=== PATIENT | female | born 1930 | race Caucasian/White ===

== ENCOUNTER → 2017-01-24 | Outpatient (CLI) | payer MEDICARE ==
[~2017-01-24] MED LIST: AC500T PO; APIX2.5T PO; APIX5TAB2 PO; ASP81CT PO; ASPI-875 PO; ASPI-892 PO; AZTH250C PO; Acetaminophen PO; Apixaban PO; Atorvastatin Calcium PO; CLPD75T PO; DILT240C PO; DLT240CCR PO; Diltiazem Hcl PO; FRSM40T PO; FURO40TA4 PO; HYDR25TA4 PO; KCL10CCR PO; LISI20TA PO; LOSA25TA5 PO; Losartan Potassium PO; METO-272 PO; METO50TA7 PO; Metoprolol Succinate PO; NIFE30TA82 PO; OMEP-10 PO; POTA10TA36 PO; PRV20T PO; Pantoprazole Sodium PO; SPIR50TA6 PO; SPRN25T PO; Sodium Chloride IV
--- NOTE | 2017-01-25 19:33 | ECHOCARDIOGRAPHY REPORT ---
DATE OF SERVICE: 01/24/2017 ECHOCARDIOGRAM ORDERING PHYSICIAN: Dr. Aguillon. PRIMARY PHYSICIAN: Dr. Alvarez. CLINICAL DIAGNOSES: Coronary artery disease, ischemic cardiomyopathy. MEASUREMENTS: Left atrium 3.7. Aortic root 3.5. LV diameter diastolic 4.5. IVS thickness diastolic 1. LVPW thickness diastolic 0.9. DESCRIPTION: Two-dimensional echocardiography shows impairment of global left ventricular systolic function. There is distal septal and anteroapical hypokinesis. Aortic, mitral and tricuspid valve leaflets show good leaflet excursion. There is no significant pericardial effusion. Aortic valve appears to be trileaflet. Doppler imaging shows trivial mitral and tricuspid regurgitation. Pulmonary artery systolic pressure is estimated to be approximately 35 mmHg. There is no Doppler evidence of any significant valvular stenosis. The inferior vena cava is of normal size and does exhibit inspiratory collapse. There is no evidence of any significant intracardiac shunt on this transthoracic echocardiographic study. CONCLUSIONS: 1. Impairment of global left ventricular systolic function with distal septal and anteroapical hypokinesis and left ventricular ejection fraction of approximately 40%. 2. Trivial mitral and tricuspid regurgitation. 3. No evidence of significant valvular stenosis. 4. Pulmonary artery systolic pressure is estimated to be approximately 35 mmHg. Job ID: [id number] DocumentID: [id number] Dictated Date: 01/24/2017 15:24:58 Foxing Painter Date: 01/25/2017 10:38:10 Dictated By: RONNI AGUILLON MD, MA, FACP, FACC,
== END ==
LOC: CARD 11:24
PROVIDERS: ATTEND Internal Medicine Cardiovascular Disease
DX: I48.2 Chronic atrial fibrillation (principal); I25.10 Atherosclerotic heart disease of native coronary artery without angina pectoris; I65.23 Occlusion and stenosis of bilateral carotid arteries; E78.4 Other hyperlipidemia; I25.5 Ischemic cardiomyopathy; N18.3 Chronic kidney disease, stage 3 (moderate)
CPT/HCPCS: 93306

== ENCOUNTER → 2017-07-01 | Outpatient (CLI) | payer MEDICARE ==
[~2017-07-01] VITALS: Ht 160 cm; Wt 39.5 kg
[~2017-07-01] MED LIST changes: +CATHETER FLUSH 10 ML SYR IV PRN; +REGADENOSON 0.4 MG/5 ML SYR (LEXISCAN) IV ONE
[2017-07-01 09:46] VITALS: BP 131/57
--- NOTE | 2017-07-03 14:20 | STRESS TEST ---
DATE OF SERVICE: 07/01/2017 RESTING AND POST REGADENOSON TECHNETIUM-99M TETROFOSMIN SPECT CT IMAGING ORDERING PHYSICIAN: Dr. Aguillon. PRIMARY PHYSICIAN: Dr. Alvarez. CLINICAL DIAGNOSES: History of ischemic cardiomyopathy, atrial fibrillation, carotid arterial disease, hyperlipidemia. Baseline images were carried out after injection of 11 mCi technetium-99m of Tetrofosmin. This was followed by 0.4 mg regadenoson and 29 mCi of technetium-99m Tetrofosmin for stress imaging. The electrocardiogram showed atrial fibrillation throughout the study. Prior anteroseptal myocardial infarction cannot be excluded on the electrocardiogram. There is a diffuse nonspecific T-wave abnormality. The electrocardiogram did not change significantly with the regadenoson infusion. Review of images at rest and following stress does not indicate any significant perfusion defects consistent with significant myocardial ischemia or infarction. Gated images show normal global left ventricular systolic function with normal regional wall motion. Left ventricular ejection fraction is calculated to be 45%, but subjectively appears to be somewhat higher than that. CONCLUSIONS: 1. No evidence of significant myocardial ischemia or infarction on this study. 2. Left ventricular ejection fraction is calculated to be 45%, but subjectively appears to be somewhat higher than that. 3. No distinct regional wall motion abnormality is seen on this study. Job ID: [id number] DocumentID: [id number] Dictated Date: 07/03/2017 12:01:58 Chucking Machine Operator Date: 07/03/2017 13:01:11 Dictated By: RONNI AGUILLON MD, MA, FACP, FACC,
== END ==
LOC: CARD 07:29
PROVIDERS: ATTEND Internal Medicine Cardiovascular Disease
DX: I48.2 Chronic atrial fibrillation (principal); I65.23 Occlusion and stenosis of bilateral carotid arteries; N18.3 Chronic kidney disease, stage 3 (moderate); E78.4 Other hyperlipidemia; I25.5 Ischemic cardiomyopathy
CPT/HCPCS: 78452; 93017

== ENCOUNTER → 2017-08-06 | Outpatient (CLI) | payer MEDICARE ==
[~2017-08-06] MED LIST changes: -CATHETER FLUSH 10 ML SYR IV PRN; -REGADENOSON 0.4 MG/5 ML SYR (LEXISCAN) IV ONE
== END ==
LOC: CARD 08:29
PROVIDERS: ATTEND Nurse Practitioner Family
DX: I25.5 Ischemic cardiomyopathy (principal)
CPT/HCPCS: 93306

== ENCOUNTER 2018-02-18 15:00 | Outpatient (CLI) | payer MEDICARE ==
[~2018-02-18] VITALS: Ht 152.4 cm; Wt 40.8 kg
[2018-02-18] MEDS ORDERED: DILT240C53 PO (15:14)
[2018-02-18] MEDS ORDERED: ATOR10TA66 PO (15:14)
[2018-02-18] MEDS ORDERED: RIVA15TA PO (15:14)
[2018-02-18] MEDS ORDERED: PANT20TA3 PO (15:14)
[2018-02-18] MEDS ORDERED: CLOP75TA28 PO (15:14)
[2018-02-18] MEDS ORDERED: METO-370 PO (15:14)
== END 2018-02-18 15:18 ==
LOC: PREOP 15:00
PROVIDERS: ATTEND Specialist
DX: Z01.818 Encounter for other preprocedural examination (principal)

== ENCOUNTER 2018-02-19 19:36 | Inpatient (IN) | payer MEDICARE ==
[~2018-02-19] VITALS: Ht 157.5 cm; Wt 40.9 kg
[~2018-02-19 19:36] MED LIST changes: +ATOR10TA66 PO; +CLOP75TA28 PO; +DILT240C53 PO; +METO-370 PO; +PANT20TA3 PO; +RIVA15TA PO
--- NOTE | 2018-02-19 19:53 | ED General ---
General Chief Complaint: Neuro-Stroke Like Symptoms Stated Complaint: SOB/DIFFICULTY SPEAKING Nursing Triage Note: PATIENT WITH HX STROKE HERE FOR DIFFICULTIES WITH SPEECH Nursing Sepsis Screen: No Definite Risk Source of Information: Patient, Family Exam Limitations: No Limitations History of Present Illness Date Seen by Provider: Feb 19, 2018 Time Seen by Provider: 19:53 Initial Comments to ER per private vehicle with reports of difficulty speaking and shortness of breath.dino is accompanied by her daughter. This worsening of her baseline difficulty speaking began at 5 PM this evening. She denies any unilateral weakness or other neurologic deficits. She denies a headache. Her daughter states that she does seem short of breath. She does have a history of a stroke in 2014, history of atrial fibrillation and she is on Xarelto and Plavix.her deficits after the 2014 stroke work minor right-sided facial droop which persists and dysarthria. Tonight, the dysarthria seems worse. she is scheduled for cataract surgery to be done here tomorrow morning. Timing/Duration: 1-3 Hours Severity: Moderate Allergies and Home Medications Allergies Coded Allergies: No Known Drug Allergies (Unverified , 09/14/13) Home Medications Atorvastatin Calcium 10 Mg Tablet, 10 MG PO HS, (Reported) Clopidogrel Bisulfate 75 Mg Tablet, 75 MG PO DAILY, (Reported) Diltiazem HCl 240 Mg Cap.er.24h, 240 MG PO DAILY, (Reported) Metoprolol Succinate 50 Mg Tab.er.24h, 50 MG PO DAILY, (Reported) Pantoprazole Sodium 20 Mg Tablet.dr, 20 MG PO DAILY, (Reported) Rivaroxaban 15 Mg Tablet, 15 MG PO HS, (Reported) Patient Home Medication List Home Medication List Reviewed: Yes Review of Systems Constitutional: see HPI EENTM: see HPI Respiratory: no symptoms reported Cardiovascular: no symptoms reported Genitourinary: no symptoms reported Musculoskeletal: no symptoms reported Skin: no symptoms reported Psychiatric/Neurological: See HPI, Pre-Existing Deficit (pre-existing deficit is slight right-sided facial droop and dysarthria mild-moderate. ) Hematologic/Lymphatic: No Symptoms Reported Past Othzhgw-Cfvuvz-Luzycv Hx Patient Social History Recent Foreign Travel: No Contact w/Someone Who Travel: No Recent Infectious Disease Expo: No Immunizations Up To Date Tetanus Booster (TDap): Less than 5yrs Date of Pneumonia Vaccine: Aug 17, 2012 Seasonal Allergies Seasonal Allergies: No Past Medical History Coronary Stent Atrial Fibrillation, Coronary Artery Disease, Heart Attack, Hypertension Stroke Reproductive Disorders: No Fractures Loss of Vision: Denies Hearing Impairment: Hard of Hearing Family Medical History Family history: Cardiovascular disease 03 MOTHER Hypertension 03 MOTHER No Family History of: Alzheimer's disease Diabetes mellitus Myocardial infarction Heart Disease, Hypertension Physical Exam Vital Signs Vital Signs - First Documented 02/19/18 02/19/18 19:42 20:01 Temp 95.7 Pulse 90 Resp 18 B/P (MAP) 102/90 (94) Pulse Ox 95 O2 Delivery Nasal Cannula O2 Flow Rate 2.00 Capillary Refill : Less Than 3 Seconds General Appearance: No Apparent Distress, WD/WN, Chronically ill (frail), Thin (90 pounds), Other (she denies shortness of breath that she is tachypneic and does appear dyspneic) Eyes: Bilateral Eye Normal Inspection, Bilateral Eye PERRL, Bilateral Eye EOMI HEENT: PERRL/EOMI, TMs Normal Neck: Full Range of Motion, Normal Inspection Respiratory: Lungs Clear, Normal Breath Sounds, No Accessory Muscle Use, No Respiratory Distress Cardiovascular: Regular Rate, Rhythm, Normal Peripheral Pulses Gastrointestinal: Normal Bowel Sounds, Non Tender, Soft Extremity: Normal Capillary Refill, Normal Inspection Neurologic/Psychiatric: Alert, Oriented x3, No Motor/Sensory Deficits Skin: Normal Color, Warm/Dry Progress/Results/Core Measures Suspected Sepsis Recent Fever Within 48 Hours: No Infection Criteria Present: None New/Unexplained Altered Menta: No Sepsis Screen: No Definite Risk SIRS Temperature:95.7 Pulse: 90 Respiratory Rate: 18 Laboratory Tests 02/19/18 19:45: White Blood Count 8.2 Blood Pressure 102 /90 Mean: 94 Laboratory Tests 02/19/18 19:45: Creatinine 1.14, INR Comment 6.3*H, Platelet Count 116L, Total Bilirubin 1.2H Results/Orders Lab Results Laboratory Tests Test 02/19/18 19:45 02/19/18 19:59 02/19/18 20:50 Range/Units White Blood Count 8.2 4.3-11.0 10^3/uL Red Blood Count 4.00 L 4.35-5.85 10^6/uL Hemoglobin 10.6 L 11.5-16.0 G/DL Hematocrit 33 L 35-52 % Mean Corpuscular Volume 82 80-99 FL Mean Corpuscular Hemoglobin 27 25-34 PG Mean Corpuscular Hemoglobin Concent 32 32-36 G/DL Red Cell Distribution Width 18.5 H 10.0-14.5 % Platelet Count 116 L 130-400 10^3/uL Mean Platelet Volume 7.4-10.4 FL Neutrophils (%) (Auto) 60 42-75 % Lymphocytes (%) (Auto) 19 12-44 % Monocytes (%) (Auto) 21 H 0-12 % Eosinophils (%) (Auto) 0 0-10 % Basophils (%) (Auto) 0 0-10 % Neutrophils # (Auto) 4.9 1.8-7.8 X 10^3 Lymphocytes # (Auto) 1.6 1.0-4.0 X 10^3 Monocytes # (Auto) 1.8 H 0.0-1.0 X 10^3 Eosinophils # (Auto) 0.0 0.0-0.3 10^3/uL Basophils # (Auto) 0.0 0.0-0.1 10^3/uL Neutrophils % (Manual) 60 % Lymphocytes % (Manual) 25 % Monocytes % (Manual) 14 % Eosinophils % (Manual) 0 % Basophils % (Manual) 1 % Band Neutrophils 0 % Anisocytosis SLIGHT Spherocytes SLIGHT Elliptocytes MODERATE Prothrombin Time 56.5 *H 12.2-14.7 SEC INR Comment 6.3 *H 0.8-1.4 Activated Partial Thromboplast Time 45 H 24-35 SEC D-Dimer 0.84 H 0.00-0.49 UG/ML Sodium Level 134 L 135-145 MMOL/L Potassium Level 4.4 3.6-5.0 MMOL/L Chloride Level 106 98-107 MMOL/L Carbon Dioxide Level 11 L 21-32 MMOL/L Anion Gap 17 H 5-14 MMOL/L Blood Urea Nitrogen 22 H 7-18 MG/DL Creatinine 1.14 0.60-1.30 MG/DL Estimat Glomerular Filtration Rate 45 BUN/Creatinine Ratio 19 Glucose Level 143 H 70-105 MG/DL Calcium Level 8.7 8.5-10.1 MG/DL Total Bilirubin 1.2 H 0.1-1.0 MG/DL Aspartate Amino Transf (AST/SGOT) 21 5-34 U/L Alanine Aminotransferase (ALT/SGPT) 16 0-55 U/L Alkaline Phosphatase 66 40-136 U/L Troponin I < 0.30 <0.30 NG/ML B-Type Natriuretic Peptide 2960.1 H <100.0 PG/ML Total Protein 6.5 6.4-8.2 GM/DL Albumin 3.5 3.2-4.5 GM/DL Glucometer 142 H 70-110 MG/DL Urine Color YELLOW Urine Clarity CLEAR Urine pH 5 5-9 Urine Specific [place] 1.030 H 1.016-1.022 Urine Protein 3+ H NEGATIVE Urine Glucose (UA) NEGATIVE NEGATIVE Urine Ketones 1+ H NEGATIVE Urine Nitrite NEGATIVE NEGATIVE Urine Bilirubin 1+ H NEGATIVE Urine Urobilinogen 4 H NORMAL MG/DL Urine Leukocyte Esterase 1+ H NEGATIVE Urine RBC (Auto) 1+ H NEGATIVE Urine RBC 2-5 H /HPF Urine WBC 2-5 /HPF Urine Squamous Epithelial Cells 0-2 /HPF Urine Crystals NONE /LPF Urine Bacteria TRACE /HPF Urine Casts PRESENT /LPF Urine Hyaline Casts 5-10 H /LPF Urine Mucus LARGE H /LPF Urine Culture Indicated NO My Orders Orders - CATARINO OKEEFE APRN Cbc With Automated Diff (02/19/18 19:51) Protime With Inr (02/19/18 19:51) Partial Thromboplastin Time (02/19/18 19:51) Comprehensive Metabolic Panel (02/19/18 19:51) Fibrin Degradation Products (02/19/18 19:51) Troponin I (02/19/18 19:51) Ua Culture If Indicated (02/19/18 19:51) Chest 1 View, Ap/Pa Only (02/19/18 19:51) Ekg Tracing (02/19/18 19:51) Nothing By Mouth (02/20/18 Breakfast) Accucheck Stat ONCE (02/19/18 19:51) Saline Lock/Iv-Start (02/19/18 19:51) Saline Lock/Iv-Start (02/19/18 19:51) Vital Signs Stroke Patient Q15M (02/19/18 19:51) Ct Head Wo-R/O Stroke (02/19/18 19:51) O2 (02/19/18 19:51) Intake & Output 06,14,22 (02/19/18 19:51) Monitor-Rhythm Ecg Trace Only (02/19/18 19:51) Dysphagia Screening Tool (02/19/18 19:51) Post Thrombolytic Adminstratio (02/19/18 19:51) Manual Differential (02/19/18 19:45) Ct Angio Head W (02/19/18 19:51) BNP (02/19/18 20:55) Furosemide Injection (Lasix Injection) (02/19/18 21:00) Blood Culture (02/19/18 20:55) Piperacillin/Tazobactam (Zosyn Vial) (02/19/18 21:00) Medications Given in ED Current Medications Medications Dose Ordered Sig/Gerard Route Start Time Stop Time Status Last Admin Dose Admin Furosemide 40 mg ONCE ONCE IVP 02/19/18 21:00 02/19/18 21:01 DC 02/19/18 21:14 40 MG Piperacillin Sod/ Tazobactam Sod 3.375 gm/Dextrose 100 ml @ 200 mls/hr ONCE ONCE IV 02/19/18 21:00 02/19/18 21:29 DC 02/19/18 21:47 200 MLS/HR Vital Signs/I&O 02/19/18 02/19/18 19:42 20:01 Temp 95.7 Pulse 90 Resp 18 B/P (MAP) 102/90 (94) Pulse Ox 95 90 O2 Delivery Nasal Cannula O2 Flow Rate 2.00 Capillary Refill : Less Than 3 Seconds Blood Pressure Mean: 94 Diagnostic Imaging Diagonstic Imaging: Xray Comments NAME: DARWIN NEWSOME [facility] REC#: [id number] PT STATUS: REG ER : 1930 PHYSICIAN: CATARINO OKEEFE APRN ADMIT DATE: 02/19/18/ER Draft Date of Exam:02/19/18 CT HEAD WO-R/O STROKE INDICATION: Difficulty speaking. History of previous stroke. FINDINGS: There is diffuse cortical atrophy again noted. Periventricular white matter changes are again noted. Ventricles are prominent, consistent with atrophic state. There is no evidence of intracranial hemorrhage. No extra-axial fluid collections. Basal cisterns are clear. Pituitary is not enlarged. CP angles appear normal. Bone windows show the mastoid air cells to be clear. No calvarial fractures. IMPRESSION: Rather advanced cortical atrophy and periventricular white matter changes consistent with chronic small vessel disease. No acute changes have developed. Dictated on workstation # [id number] Dict: 02/19/182013 Trans: 02/19/182017 [id number] Interpreted by: EDY CASTLE MD Electronically signed by: Departure Communication (Admissions) Time/Spoke to Admitting Phy: 21:[address] Jerry. He agrees to admit, recommends MRI in the morning, 2 view chest x-ray in the morning, Lasix, Zosyn, continues Xarelto, Cardiology a consult, weight now and daily, basic metabolic panel in the morning, BNP in the morning, elevate head of bed and IV fluids being D5W. Time/Spoke to Consulting Phy: 21:[address] Aguillon of the consult. Patient states that she actually sees Dr. Aguillon in the outpatient setting. He agrees to consult in the morning. I'll daily Lasix 40 mg now and again in the morning with repeat chest x-ray. 2100-patient's CT of the head is unremarkable. Chest x-ray shows cardiac enlargement since prior exam with pulmonary edema and infiltrate. I suspect this is caused a recrudescence of her old stroke symptoms including dysarthria. she would not be a TPA candidate given her Xarelto use. Her kidney dysfunction precludes her from Ct angiogram. patient reports to RN that if her heart should suddenly stop she does not want to be resuscitated she will be a DO NOT RESUSCITATE status Impression Primary Impression: Congestive heart failure Additional Impression: Pneumonia Disposition: ADMITTED INPATIENT Condition: Stable Admissions Decision to Admit Reason: Admit from ER (General) Decision to Admit/Date: Feb 19, 2018 Time/Decision to Admit Time: 22:13 Departure-Patient Inst. Referrals: ARGENIS JERRY DO (PCP/Family) Primary Care Physician NIH Stroke Scale NIH Stroke Scale NIH : Select: Initial Level of Consciousness: 0=Alert Level of Consciousness-Questio: 0=Answers both month/age LOC Commands: 0=Performs both tasks Gaze: 0=Normal Visual Ventura: 0=No visual loss Facial Movement (Facial Paresi: 1=Minor paralysis Motor Function-Arms Right: 0=No drift Motor Function-Arms Left: 0=No drift Motor Function-Legs Right: 0=No drift Motor Function-Legs Left: 0=No drift Limb Ataxia: 0=Absent Sensory: 0=Normal:no loss Best Language: 0=No aphasia Dysarthria: 2=Severe dysarthria Extinction & Inattention: 0=No abnormality NIH Stroke Scale Score: 3 (NIH score of 3.. However the 1point for facial droop is baseline, and she also gets 1 for mild to moderate dysarthria per baseline. so her new NIH deficit is one additional point for worsening dysarthria) CATARINO OKEEFE [employer] Feb 19, 2018 19:53
[2018-02-19 19:58] LABS: BASOPHILS % (AUTO) 0 % (0-10); EOSINOPHILS % (AUTO) 0 % (0-10); HEMATOCRIT 33 % (35-52); HEMOGLOBIN 10.6 G/DL (11.5-16.0); LYMPHOCYTES # (AUTO) 1.6 X 10^3 (1.0-4.0); LYMPHOCYTES % (AUTO) 19 % (12-44); MEAN CORPUSCULAR HEMOGLOBIN 27 PG (25-34); MEAN CORPUSCULAR HGB CONC 32 G/DL (32-36); MEAN CORPUSCULAR VOLUME 82 FL (80-99); MONOCYTES # (AUTO) 1.8 X 10^3 (0.0-1.0); MONOCYTES % (AUTO) 21 % (0-12); NEUTROPHILS # (AUTO) 4.9 X 10^3 (1.8-7.8); NEUTROPHILS % (AUTO) 60 % (42-75); PLATELET COUNT 116 10^3/uL (130-400); RED CELL DISTRIBUTION WIDTH 18.5 % (10.0-14.5); WHITE BLOOD COUNT 8.2 10^3/uL (4.3-11.0)
[2018-02-19 20:10] LABS: NEUTROPHILS % (MANUAL) 60 %
[2018-02-19 20:11] LABS: ANISOCYTOSIS SLIGHT; BAND NEUTROPHILS 0 %; BASOPHILS % (MANUAL) 1 %; ELLIPT/OVALOCYTES MODERATE; EOSINOPHILS % (MANUAL) 0 %; LYMPHOCYTES % (MANUAL) 25 %; MONOCYTES % (MANUAL) 14 %; SPHEROCYTES SLIGHT
--- NOTE | 2018-02-19 20:18 | Diagnostic Imaging Report ---
INDICATION: Difficulty speaking. History of previous stroke. FINDINGS: There is diffuse cortical atrophy again noted. Periventricular white matter changes are again noted. Ventricles are prominent, consistent with atrophic state. There is no evidence of intracranial hemorrhage. No extra-axial fluid collections. Basal cisterns are clear. Pituitary is not enlarged. CP angles appear normal. Bone windows show the mastoid air cells to be clear. No calvarial fractures. IMPRESSION: Rather advanced cortical atrophy and periventricular white matter changes consistent with chronic small vessel disease. No acute changes have developed. Dictated by: Dictated on workstation # [id number]
--- NOTE | 2018-02-19 20:22 | Diagnostic Imaging Report ---
INDICATION: Difficulty speaking. Shortness of breath. History of stroke. COMPARISON: 01/08/2015. FINDINGS: There is significant increase in cardiac size since previous exam. There is some pulmonary venous congestion. There are dense consolidated infiltrates in the lower lobes, bilaterally, with small bilateral pleural effusions. IMPRESSION: 1. Cardiomegaly with some changes of pulmonary edema. 2. Dense alveolar infiltrates in the lung bases which does suggest superimposed pneumonia on findings of congestive failure. Dictated by: Dictated on workstation # [id number]
[2018-02-19 20:23] LABS: ALANINE AMINOTRANSFERASE 16 U/L (0-55); ALBUMIN 3.5 GM/DL (3.2-4.5); ALKALINE PHOSPHATASE 66 U/L (40-136); BILIRUBIN,TOTAL 1.2 MG/DL (0.1-1.0); BUN/CREATININE RATIO 19; CALCIUM 8.7 MG/DL (8.5-10.1); CARBON DIOXIDE 11 MMOL/L (21-32); CHLORIDE 106 MMOL/L (98-107); CREATININE SERUM 1.14 MG/DL (0.60-1.30); GFR ESTIMATED 45; GLUCOSE 143 MG/DL (70-105); POTASSIUM 4.4 MMOL/L (3.6-5.0); SODIUM 134 MMOL/L (135-145); TOTAL PROTEIN 6.5 GM/DL (6.4-8.2)
[2018-02-19 20:28] LABS: PROTHROMBIN TIME PATIENT 56.5 SEC (12.2-14.7)
[2018-02-19 20:29] LABS: FIBRIN DEGRADATION PRODUCTS 0.84 UG/ML (0.00-0.49); INR 6.3 (0.8-1.4)
[2018-02-19] MEDS ORDERED: FUROSEMIDE 40 MG/4 ML INJ (LASIX) IVP ONE (21:00)
[2018-02-19] MEDS ORDERED: PIPERACILLIN/TAZOBACTAM 3.375 GM in D5W 100 ML IVPB 100 ML IV ONE (21:00)
[2018-02-19 21:04] LABS: CLARITY,URINE CLEAR; COLOR,URINE YELLOW; GLUCOSE, URINE (UA) NEGATIVE (NEGATIVE); KETONES,URINE 1+ (NEGATIVE); LEUKOCYTE ESTERASE ,URINE 1+ (NEGATIVE); NITRITE,URINE NEGATIVE (NEGATIVE); PH,URINE 5 (5-9); PROTEIN,URINE 3+ (NEGATIVE); UROBILINOGEN,URINE 4 MG/DL (NORMAL)
[2018-02-19 21:12] LABS: BILIRUBIN,URINE 1+ (NEGATIVE)
[2018-02-19 21:15] LABS: BACTERIA,URINE TRACE /HPF; SQUAMOUS EPITHELIAL CELL,UR 0-2 /HPF
[2018-02-19] MEDS ORDERED: LIDOCAINE 1% INJ 20 ML 20 ML VIAL INJ ONE (22:15)
[2018-02-19 23:00] VITALS: BP 130/85
[2018-02-19] MEDS ORDERED: D5W 1000 ML IV SOLUTION 1,000 ML IV SCH (23:15)
[2018-02-19 23:30] VITALS: BP 129/81
[2018-02-19 23:39] VITALS: BP 130/85
[2018-02-20] VITALS: BP 117/75
[2018-02-20] MEDS: PIPERACILLIN/TAZOBACTAM 3.375 GM in D5W 100 ML IVPB 100 ML IV SCH ×3 (03:56→20:20)
[2018-02-20 04:00] VITALS: BP 116/73
[2018-02-20 04:14] LABS: CALCIUM 8.4 MG/DL (8.5-10.1); CREATININE SERUM 1.03 MG/DL (0.60-1.30); POTASSIUM 3.2 MMOL/L (3.6-5.0)
[2018-02-20] MEDS ORDERED: FUROSEMIDE 40 MG/4 ML INJ (LASIX) IV SCH (07:00)
[2018-02-20] MEDS: RT-ALBUTEROL SULF 2.5 MG/3 ML PRE-MIX VIAL INH SCH ×2 (07:14→22:24)
[2018-02-20] MEDS ORDERED: KCL 10 MEQ TAB (MICRO K) PO NR (07:46)
--- NOTE | 2018-02-20 07:47 | History & Physicial ---
History of Present Illness History of Present Illness Reason for visit/HPI Patient to have eye surgery today. Daughter saw patient at 3 a.m. doing good. Daughter came back at 7 a.m. and mother could not talk and short of breath. Patient brought out to the emergency room. Patient in atrial fibrillation, CHF, pneumonia, and appears to have had a stroke. Patient is not able to speak well and has mumbled speech. Patient in 2014 had a stroke Date of Admission Feb 19, 2018 at 22:37 Time Seen by Provider: 07:20 I consulted on this patient on 02/20/18 07:42 Attending Physician Jeremiah Jerry DO Admitting Physician Jeremiah Jerry DO Consult Allergies and Home Medications Allergies Coded Allergies: No Known Drug Allergies (Unverified , 09/14/13) Home Medications Atorvastatin Calcium 10 Mg Tablet, 10 MG PO HS, (Reported) Clopidogrel Bisulfate 75 Mg Tablet, 75 MG PO DAILY, (Reported) Diltiazem HCl 240 Mg Cap.er.24h, 240 MG PO DAILY, (Reported) Metoprolol Succinate 50 Mg Tab.er.24h, 50 MG PO DAILY, (Reported) Pantoprazole Sodium 20 Mg Tablet.dr, 20 MG PO DAILY, (Reported) Rivaroxaban 15 Mg Tablet, 15 MG PO HS, (Reported) Patient Home Medication List Home Medication List Reviewed: No Past Ragmrhf-Kslxiy-Hwhzda Hx Patient Social History Employed/Student: retired Alcohol Use: Denies Use Recreational Drug Use: No Smoking Status: Never a Smoker 2nd Hand Smoke Exposure: No Physical Abuse Screen: No Sexual Abuse: No Recent Foreign Travel: No Contact w/other who traveled: No Recent Hopitalizations: No Recent Infectious Disease Expo: No Immunizations Up To Date Tetanus Booster (TDap): Less than 5yrs Date of Pneumonia Vaccine: Aug 17, 2012 Seasonal Allergies Seasonal Allergies: No Surgeries Yes Coronary Stent Respiratory No Cardiovascular Yes Atrial Fibrillation, Coronary Artery Disease, Heart Attack, Hypertension Neurological Yes Stroke Reproductive System Hx Reproductive Disorders: No Genitourinary No Gastrointestinal No Musculoskeletal Yes Osteoporosis, Arthritis, Fractures Endocrine History of Endocrine Disorders: No HEENT History of HEENT Disorders: Yes HEENT Disorders: Cataract Loss of Vision: Denies Hearing Impairment: Hard of Hearing Cancer No Psychosocial History of Psychiatric Problem: No Integumentary History of Skin or Integumenta: No Blood Transfusions History of Blood Disorders: No Family Medical History Significant Family History: Heart Disease, Hypertension Family Hx: Family history: Cardiovascular disease 03 MOTHER Hypertension 03 MOTHER No Family History of: Alzheimer's disease Diabetes mellitus Myocardial infarction Constitutional: weakness EENTM: other (Mumbled speech) Respiratory: short of breath Cardiovascular: no symptoms reported Gastrointestinal: no symptoms reported Genitourinary: no symptoms reported Physical Exam Vital Signs Vital Signs - First Documented 02/19/18 02/19/18 02/19/18 19:42 20:01 23:39 Temp 95.7 Pulse 90 Resp 18 B/P (MAP) 102/90 (94) Pulse Ox 95 O2 Delivery Nasal Cannula O2 Flow Rate 2.00 FiO2 28 Capillary Refill : Less Than 3 Seconds General Appearance: No Apparent Distress, Thin Eyes: Bilateral Eye Normal Inspection HEENT: Normal ENT Inspection, Other (Speech is not intelligible) Neck: Full Range of Motion, Normal Inspection Respiratory: No Accessory Muscle Use, No Respiratory Distress, Decreased Breath Sounds Cardiovascular: Irregularly Irregular Gastrointestinal: Non Tender, Soft Assessment/Plan Assessment and Plan CVA. Pulmonary edema. Pneumonia. Short of breath. Mumbled speech. Atrial fibrillation. Cataracts Admission Diagnosis Admission Status: Inpatient Order (span 2 midnights) Reason for Inpatient Admission: CHF. CVA. Atrial fibrillation. Short of breath. Mumbled speech. Renal insufficiency Clinical Quality Measures DVT/VTE Risk/Contraindication: Risk Factor Score Per Nursin RFS Level Per Nursing on Admit: 4+=Very High Stroke: Date of last known well: Feb 19, 2018 JEREMIAH JERRY DO Feb 20, 2018 07:47
[2018-02-20 07:54] LABS: INR 4.1 (0.8-1.4); PROTHROMBIN TIME PATIENT 39.9 SEC (12.2-14.7)
[2018-02-20 08:00] VITALS: BP 111/67
--- NOTE | 2018-02-20 09:03 | Consultation-Cardiology ---
HPI-Cardiology Cardiology Consultation: Date of Consultation 02/20/18 Date of Admission Attending Physician Jeremiah Alvarez DO Admitting Physician Jeremiah Alvarez DO Consulting Physician RYLAN SPRINGER HOU-Rgnbnf-Mosdiw Hx Patient Social History Employed/Student: retired Alcohol Use: Denies Use Recreational Drug Use: No Smoking Status: Never a Smoker 2nd Hand Smoke Exposure: No Recent Foreign Travel: No Recent Infectious Disease Expo: No Hospitalization with Isolation: Denies Physical Abuse Screen: No Sexual Abuse: No Immunizations Up To Date Tetanus Booster (TDap): Less than 5yrs Date of Pneumonia Vaccine: Aug 17, 2012 Past Medical History PMH As described under Assessment. Family Medical History Family History: Family history: Cardiovascular disease 03 MOTHER Hypertension 03 MOTHER No Family History of: Alzheimer's disease Diabetes mellitus Myocardial infarction Allergies and Home Medications Allergies Coded Allergies: No Known Drug Allergies (Unverified , 09/14/13) Home Medications Atorvastatin Calcium 10 Mg Tablet, 10 MG PO DAILY, (Reported) Clopidogrel Bisulfate 75 Mg Tablet, 75 MG PO DAILY, (Reported) Diltiazem HCl 240 Mg Cap.er.24h, 240 MG PO DAILY, (Reported) Metoprolol Succinate 50 Mg Tab.er.24h, 25 MG PO DAILY, (Reported) TAKES 1/2 (50MG) TABLET Pantoprazole Sodium 20 Mg Tablet.dr, 20 MG PO DAILY, (Reported) Rivaroxaban 15 Mg Tablet, 15 MG PO DAILY, (Reported) Physical Exam-Cardiology Physical Exam Vital Signs/I&O 02/23/18 02/23/18 02/23/18 02/23/18 00:00 01:00 04:00 07:29 Temp 98.9 96.6 Pulse 106 98 106 Resp 16 16 B/P (MAP) 120/71 (87) 128/80 (96) Pulse Ox 91 94 88 O2 Delivery Nasal Cannula Nasal Cannula Nasal Cannula O2 Flow Rate 3.00 3.00 02/23/18 00:00 Intake Total 1550 ml Balance 1550 ml Capillary Refill : Less Than 3 Seconds Data Review Labs Microbiology 02/19/18 Blood Culture - Preliminary, Resulted No growth Radiology NAME: DARWIN NEWSOME MED REC#: [id number] PT STATUS: REG ER : 1930 PHYSICIAN: CATARINO OKEEFE APRN ADMIT DATE: 02/19/18/ER Signed Date of Exam: 02/19/18 CHEST 1 VIEW, AP/PA ONLY INDICATION: Difficulty speaking. Shortness of breath. History of stroke. COMPARISON: 01/08/2015. FINDINGS: There is significant increase in cardiac size since previous exam. There is some pulmonary venous congestion. There are dense consolidated infiltrates in the lower lobes, bilaterally, with small bilateral pleural effusions. IMPRESSION: 1. Cardiomegaly with some changes of pulmonary edema. 2. Dense alveolar infiltrates in the lung bases which does suggest superimposed pneumonia on findings of congestive failure. Dictated by: Dictated on workstation # [id number] Dict: 02/19/182018 Trans: 02/19/182126 Interpreted by: EDY CASTLE MD Electronically signed by: EDY CASTLE MD 02/19/182126 NAME: DARWIN NEWSOME [facility] REC#: [id number] PT STATUS: REG ER : 1930 PHYSICIAN: CATARINO OKEEFE APRN ADMIT DATE: 02/19/18/ER Signed Date of Exam: 02/19/18 CT HEAD WO-R/O STROKE INDICATION: Difficulty speaking. History of previous stroke. FINDINGS: There is diffuse cortical atrophy again noted. Periventricular white matter changes are again noted. Ventricles are prominent, consistent with atrophic state. There is no evidence of intracranial hemorrhage. No extra-axial fluid collections. Basal cisterns are clear. Pituitary is not enlarged. CP angles appear normal. Bone windows show the mastoid air cells to be clear. No calvarial fractures. IMPRESSION: Rather advanced cortical atrophy and periventricular white matter changes consistent with chronic small vessel disease. No acute changes have developed. Dictated by: Dictated on workstation # [id number] Dict: 02/19/182013 Trans: 02/19/182126 Interpreted by: EDY CASTLE MD Electronically signed by: EDY CASTLE MD 02/19/182126 A/P-Cardiology Assessment/Admission Diagnosis Suspected CVA - medical services managing Supra-therapeutic INR of undetermined etiology (Xarelto for stroke prophylaxis) Acute on chronic systolic CHF Electrolyte abnormalities likely d/t chronic diuretic tx CAD. S/p mid RCA stent (Integrity 2.75x12) in early Oct 2013 following presentation with ac NSTEMI. The rest of the cors had diffuse mod disease with stenoses of upto 50-60%. MPI of 07/11/17 showed no ischemia of infarction and LVEF of 45% (subjectively felt to be higher) Ischemic cm. Cath of 11/08/13, prior to PCI, showed LVEF 35-40% and elev LVEDP Apparently intolerant to ANTOINE-inhibitor and ARB due to worsening of renal function. This is being managed by Dr Alvarez Echocardiogram of 01/24/17: LVEF 40%, triv MR and TR, PASP 35 mm Hg. ( essentially unchanged compaed to echo of December 2014) Carotid u/s from January 09, 2015 showed bilat plaque at the carotid bifurcation with velocities suggestive of underlying stenosis in the range of 60-79% in the right ICA, and in the left ICA 0-40%, unchanged on subsequent carotid u/s of . Carotid u/s of January 2017 showed mod bilat carotid plaque Chronic A fib, diagnosed in Oct 2013, rate controlled Anemia diagnosed at time of hospitalization of Oct 2013. Etiology unclear. Stable post blood transfusions during hosp of Oct 2013. F/u advised with her primary, Dr Alvarez Hyperlipidemia, treated with atorvastatin and followed by Dr Alvarez CKD stage 2-3 H/O CVA in December 2014 OAC with Xarelto CKD stage 2-3. Cr 1.16 and eGFR 43 on 12/30/16 Clinical Quality Measures DVT/VTE Risk/Contraindication: Risk Factor Score Per Nursin RFS Level Per Nursing on Admit: 4+=Very High Contraindications-Pharm: Other *list below* Stroke: Date of last known well: Feb 19, 2018 RYLAN CHO Feb 20, 2018 09:03
[2018-02-20] MEDS ORDERED: MAGNESIUM 1 GM/100 ML IVPB 100 ML IV NR (09:45)
--- NOTE | 2018-02-20 09:53 | Consultation-Cardiology ---
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 She was also more short of breath yesterday. No cp or syncope or leg swelling. No focal weakness. No recent fever or chills Review of Systems-Cardiology Review of Systems Constitutional: malaise, tiredness; No weight loss, No weight gain Eyes: blurred vision; No vision change Ears/Nose/Throat: No ear discharge, No nasal drainage, No recent hearing loss Respiratory: As described under HPI Cardiovascular: As described under HPI Gastrointestinal: No diarrhea, No vomiting Genitourinary: No dysuria Musculoskeletal: back pain (chronic) Skin: No rash, No ulcerations Psychiatric/Neurological: As described under HPI Hematologic: No bleeding abnormalities TNB-Hopuxp-Xbpkuf Hx Patient Social History Employed/Student: retired Alcohol Use: Denies Use Recreational Drug Use: No Smoking Status: Never a Smoker 2nd Hand Smoke Exposure: No Recent Foreign Travel: No Recent Infectious Disease Expo: No Hospitalization with Isolation: Denies Physical Abuse Screen: No Sexual Abuse: No Immunizations Up To Date Tetanus Booster (TDap): Less than 5yrs Date of Pneumonia Vaccine: Aug 17, 2012 Past Medical History PMH As described under Assessment. Family Medical History Family History: Family history: Cardiovascular disease 03 MOTHER Hypertension 03 MOTHER No Family History of: Alzheimer's disease Diabetes mellitus Myocardial infarction Allergies and Home Medications Allergies Coded Allergies: No Known Drug Allergies (Unverified , 09/14/13) Home Medications Atorvastatin Calcium 10 Mg Tablet, 10 MG PO HS, (Reported) Clopidogrel Bisulfate 75 Mg Tablet, 75 MG PO DAILY, (Reported) Diltiazem HCl 240 Mg Cap.er.24h, 240 MG PO DAILY, (Reported) Metoprolol Succinate 50 Mg Tab.er.24h, 50 MG PO DAILY, (Reported) Pantoprazole Sodium 20 Mg Tablet.dr, 20 MG PO DAILY, (Reported) Rivaroxaban 15 Mg Tablet, 15 MG PO HS, (Reported) Patient Home Medication List Home Medication List Reviewed: Yes Physical Exam-Cardiology Physical Exam Vital Signs/I&O 02/19/18 02/19/18 02/19/18 02/19/18 22:51 23:00 23:00 23:06 Temp 95.7 96.1 Pulse 90 86 76 Resp 18 13 B/P (MAP) 102/90 (94) 130/85 (100) Pulse Ox 90 98 98 O2 Delivery Nasal Cannula Nasal Cannula Nasal Cannula O2 Flow Rate 2.00 3.00 2.00 02/19/18 02/19/18 02/19/18 02/20/18 23:30 23:39 23:56 00:00 Pulse 80 83 77 Resp 18 21 B/P (MAP) 129/81 (97) 117/75 (89) Pulse Ox 98 99 99 O2 Delivery Nasal Cannula Nasal Cannula Nasal Cannula O2 Flow Rate 3.00 2.00 3.00 FiO2 28 02/20/18 02/20/18 02/20/18 02/20/18 01:00 04:00 07:00 07:15 Temp 97.8 Pulse 78 71 73 Resp 20 B/P (MAP) 116/73 (87) Pulse Ox 97 99 O2 Delivery Nasal Cannula Nasal Cannula O2 Flow Rate 3.00 3.00 02/20/18 08:00 Pulse 70 Resp 17 B/P (MAP) 111/67 (82) Pulse Ox 99 O2 Delivery Nasal Cannula O2 Flow Rate 3.00 02/20/18 00:00 Intake Total 100 ml Balance 100 ml Capillary Refill : Less Than 3 Seconds Constitutional: AAO x 3, well-developed, other (thin appearing) HEENT: EOMI, hearing is well preserved, oral hygience is good; No xanthelasmas are seen Neck: carotid pulses are 2 + bilaterally, with good upstrokes Respiratory: No accessory muscle use; lungs clear to percussion, lungs clear to auscultation Cardiovascular: irregularly irregular, S1 and S2, systolic murmur (soft BRIGID at card base) Gastrointestinal: No tender; soft; No guarding, No rebound; audible bowel sounds Extremities: No clubbing, No cyanosis, No significant edema Neurologic/Psychiatric: other (dysrthria; move all limbs equally; alert and oriented) Skin: No rash on exposed areas, No ulcerations on exposed areas Data Review Labs Laboratory Tests 02/19/18 19:45: White Blood Count 8.2, Red Blood Count 4.00L, Hemoglobin 10.6L, Hematocrit 33L, Mean Corpuscular Volume 82, Mean Corpuscular Hemoglobin 27, Mean Corpuscular Hemoglobin Concent 32, Red Cell Distribution Width 18.5H, Platelet Count 116L, Mean Platelet Volume , Neutrophils (%) (Auto) 60, Lymphocytes (%) (Auto) 19, Monocytes (%) (Auto) 21H, Eosinophils (%) (Auto) 0, Basophils (%) (Auto) 0, Neutrophils # (Auto) 4.9, Lymphocytes # (Auto) 1.6, Monocytes # (Auto) 1.8H, Eosinophils # (Auto) 0.0, Basophils # (Auto) 0.0, Neutrophils % (Manual) 60, Lymphocytes % (Manual) 25, Monocytes % (Manual) 14, Eosinophils % (Manual) 0, Basophils % (Manual) 1, Band Neutrophils 0, Anisocytosis SLIGHT, Spherocytes SLIGHT, Elliptocytes MODERATE, Prothrombin Time 56.5*H, INR Comment 6.3*H, Activated Partial Thromboplast Time 45H, D-Dimer 0.84H, Sodium Level 134L, Potassium Level 4.4, Chloride Level 106, Carbon Dioxide Level 11L, Anion Gap 17H , Blood Urea Nitrogen 22H, Creatinine 1.14, Estimat Glomerular Filtration Rate 45, BUN/Creatinine Ratio 19, Glucose Level 143H, Calcium Level 8.7, Total Bilirubin 1.2H, Aspartate Amino Transf (AST/SGOT) 21, Alanine Aminotransferase ( ALT/SGPT) 16, Alkaline Phosphatase 66, Troponin I < 0.30, B-Type Natriuretic Peptide 2960.1H, Total Protein 6.5, Albumin 3.5 02/19/18 19:59: Glucometer 142H 02/19/18 20:50: Urine Color YELLOW, Urine Clarity CLEAR, Urine pH 5, Urine Specific [place] 1.030H, Urine Protein 3+H, Urine Glucose (UA) NEGATIVE, Urine Ketones 1+H, Urine Nitrite NEGATIVE, Urine Bilirubin 1+H, Urine Urobilinogen 4H, Urine Leukocyte Esterase 1+H, Urine RBC (Auto) 1+H, Urine RBC 2-5H, Urine WBC 2-5, Urine Squamous Epithelial Cells 0-2, Urine Crystals NONE, Urine Bacteria TRACE, Urine Casts PRESENT, Urine Hyaline Casts 5-10H, Urine Mucus LARGEH, Urine Culture Indicated NO 02/20/18 03:10: Sodium Level 134L, Potassium Level 3.2L, Chloride Level 102, Carbon Dioxide Level 17L, Anion Gap 15H, Blood Urea Nitrogen 20H, Creatinine 1.03, Estimat Glomerular Filtration Rate 51, BUN/Creatinine Ratio 19, Glucose Level 142H, Calcium Level 8.4L, B-Type Natriuretic Peptide 3029.9H 02/20/18 03:16: Prothrombin Time 39.9H, INR Comment 4.1H, Magnesium Level 1.7L Laboratory Tests 02/19/18 19:45 02/20/18 03:10 A/P-Cardiology Assessment/Admission Diagnosis Suspected CVA, consisting of worsening of dysarthria - Medical Service managing Chronic persistent A fib, first diagnosed in Oct 2013, rate controlled Chronic rivaroxaban therapy for stroke prophylaxis Acute on chronic systolic CHF, clinically improved Electrolyte abnormalities likely d/t chronic diuretic tx CAD. S/p mid RCA stent (Integrity 2.75x12) in early Oct 2013 following presentation with ac NSTEMI. The rest of the cors had diffuse mod disease with stenoses of upto 50-60%. MPI of 07/11/17 showed no ischemia of infarction and LVEF of 45% (subjectively felt to be higher) Ischemic cm. Cath of 11/08/13, prior to PCI, showed LVEF 35-40% and elev LVEDP Apparently intolerant to ANTOINE-inhibitor and ARB due to worsening of renal function. This is being managed by Dr Alvarez Echocardiogram of 01/24/17: LVEF 40%, triv MR and TR, PASP 35 mm Hg. ( essentially unchanged compaed to echo of December 2014) Carotid u/s from January 09, 2015 showed bilat plaque at the carotid bifurcation with velocities suggestive of underlying stenosis in the range of 60-79% in the right ICA, and in the left ICA 0-40%, unchanged on subsequent carotid u/s of . Carotid u/s of January 2017 showed mod bilat carotid plaque Anemia diagnosed at time of hospitalization of Oct 2013. Etiology unclear. 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 Cr 1.16 and eGFR 43 on 12/30/16 Discussion and Recomendations * Continue diuretics * Continue rivaroxaban, adjusted to age, low body wgt, and renal function. This is for stroke prophylaxis (because of ch a fib) * She had been on ASA, but has not been taking it. We advise reinitiation of low -dose aspirin (because of CAD and carotid art disease) * Replenish lytes * Follow labs * Medical Svce to manage stroke * I had a detailed discussion with her and her daughter and answered CV-related questions Clinical Quality Measures DVT/VTE Risk/Contraindication: Risk Factor Score Per Nursin RFS Level Per Nursing on Admit: 4+=Very High Contraindications-Pharm: Other *list below* Stroke: Date of last known well: Feb 19, 2018 RONNI YEE MD FACP FAC CCDS Feb 20, 2018 09:53
--- NOTE | 2018-02-20 09:57 | Pulmonary Consultation ---
History of Present Illness History of Present Illness Date of Consultation 02/20/18 09:52 Time Seen by Provider: 09:52 Date of Admission History of Present Illness 87yo with hx of Afib, CHF, CVA, presented to ED secondary to worsening SOB that started around 5pm last night. no prior episodes like this. Pt is on Xarelto, and Plavix. Allergies and Home Medications Allergies Coded Allergies: No Known Drug Allergies (Unverified , 09/14/13) Home Medications Atorvastatin Calcium 10 Mg Tablet, 10 MG PO DAILY, (Reported) Clopidogrel Bisulfate 75 Mg Tablet, 75 MG PO DAILY, (Reported) Diltiazem HCl 240 Mg Cap.er.24h, 240 MG PO DAILY, (Reported) Metoprolol Succinate 50 Mg Tab.er.24h, 25 MG PO DAILY, (Reported) TAKES 1/2 (50MG) TABLET Pantoprazole Sodium 20 Mg Tablet.dr, 20 MG PO DAILY, (Reported) Rivaroxaban 15 Mg Tablet, 15 MG PO DAILY, (Reported) Past Dqqpwzp-Eekeus-Chjjdb Hx Patient Social History Alcohol Use: Denies Use Recreational Drug Use: No Smoking Status: Never a Smoker 2nd Hand Smoke Exposure: No Recent Foreign Travel: No Contact w/Someone Who Travel: No Recent Infectious Disease Expo: No Recent Hopitalizations: No Physical Abuse: No Sexual Abuse: No Immunizations Up To Date Tetanus Booster (TDap): Less than 5yrs Date of Pneumonia Vaccine: Aug 17, 2012 Seasonal Allergies Seasonal Allergies: No Past Medical History Surgeries: Yes Coronary Stent Respiratory: No Cardiac: Yes Atrial Fibrillation, Coronary Artery Disease, Heart Attack, Hypertension Neurological: Yes Stroke Reproductive Disorders: No Genitourinary: No Gastrointestinal: No Musculoskeletal: Yes Osteoporosis, Arthritis, Fractures Endocrine: No HEENT: Yes Cataract Loss of Vision: Denies Hearing Impairment: Hard of Hearing Cancer: No Psychosocial: No Nursing Suicide Risk Score: 0 Integumentary: No Blood Disorders: No Family Medical History Family history: Cardiovascular disease 03 MOTHER Hypertension 03 MOTHER No Family History of: Alzheimer's disease Diabetes mellitus Myocardial infarction Heart Disease, Hypertension Review of Systems Time Seen by Provider: 08:50 Constitutional: Sweats, Weakness, Malaise; No: Fever, Chills, Other Eyes: No: Pain, Vision change, Conjunctivae inflammation, Eyelid inflammation, Other, Redness Respiratory: Cough, Dry, Shortness of breath, SOB with excertion, Wheezing; No : Hemoptysis Gastrointestinal: No: Nausea, Vomiting, Abdominal Pain, Diarrhea, Constipation , Melena, Hematochezia, Other Genitourinary: No Dysuria, No Frequency, No Incontinence Neurological: Weakness, Incoordination, Confusion Exam Exam Vital Signs Date Time Temp Pulse Resp B/P (MAP) Pulse Ox O2 Delivery O2 Flow Rate FiO2 02/20/18 08:00 70 17 111/67 (82) 99 Nasal Cannula 3.00 02/20/18 07:15 99 Nasal Cannula 3.00 02/20/18 07:00 73 02/20/18 04:00 97.8 71 20 116/73 (87) 97 Nasal Cannula 3.00 02/20/18 01:00 78 02/20/18 00:00 77 21 117/75 (89) 99 Nasal Cannula 3.00 02/19/18 23:56 Nasal Cannula 2.00 02/19/18 23:39 83 99 28 02/19/18 23:30 80 18 129/81 (97) 98 Nasal Cannula 3.00 02/19/18 23:06 76 02/19/18 23:00 98 Nasal Cannula 2.00 02/19/18 23:00 96.1 86 13 130/85 (100) 98 Nasal Cannula 3.00 02/19/18 22:51 95.7 90 18 102/90 (94) 90 Nasal Cannula 2.00 02/19/18 20:01 90 Nasal Cannula 2.00 02/19/18 19:42 95.7 90 18 102/90 (94) 95 I & O 02/20/18 07:00 Intake Total 200 ml Output Total 1600 ml Balance -1400 ml General Appearance: No Apparent Distress, Thin HEENT: Normal ENT Inspection, Other (Speech is not intelligible) Neck: Full Range of Motion, Normal Inspection Respiratory: No Accessory Muscle Use, No Respiratory Distress, Decreased Breath Sounds Cardiovascular: Irregularly Irregular Capillary Refill: Less Than 3 Seconds Extremity: Normal Capillary Refill, Normal Inspection Neurologic/Psychiatric: Alert, Oriented x3, No Motor/Sensory Deficits Skin: Normal Color, Warm/Dry Results Lab Laboratory Tests 02/19/18 19:45 02/20/18 03:10 Assessment/Plan Assessment/Plan r/o CVA -- MRI is pending CHF EF is 35-40% SOB with pulmonary edema with hypoxia -monitor close -Currently on lasix Metabolic acidosis -Check LA -monitor close -Pt will probably need more IVF SHAHBAZ NOLAN DO Feb 20, 2018 09:57
[2018-02-20] MEDS ORDERED: ASPIRIN 81 MG CHEW (CHILDREN'S ASA) PO NR (10:15)
[2018-02-20] MEDS: NS IV 1000 ML 1,000 ML IV SCH ×2 (10:31→22:08)
[2018-02-20 12:05] VITALS: BP 99/65
--- NOTE | 2018-02-20 12:25 | Diagnostic Imaging Report ---
PROCEDURE: MR imaging of the brain without contrast. TECHNIQUE: Multiplanar, multisequence MR imaging of the brain was performed without contrast. INDICATION: Slurred speech, dysarthria. FINDINGS: The previous MRI brain exam performed on 01/09/2015 noted acute nonhemorrhagic infarcts involving the left parietal lobe in the distribution of the left middle cerebral artery. On the diffusion series of this exam, there is no abnormal signal involving the distribution of the left middle cerebral artery. However, there is a small area of altered signal in the [place] on the right. There is a corresponding area of diminished signal in this region on the ADC series and I do suspect that this finding is related to an acute/subacute nonhemorrhagic infarct. There is no other abnormal signal arising from the brain on the diffusion series to indicate an area of acute ischemia. There is no sign of hemorrhage on the T1 series. There is no mass, shift of the midline, or extra-axial fluid collection evident. The ventricles are prominent and slightly larger than on the prior exam. The size of the ventricles is probably due to the underlying cortical atrophy and periventricular encephalomalacia. The areas of altered signal in the left parietal lobe on the FLAIR series of the prior study do seem more conspicuous on this exam. Most likely, these findings are related to encephalomalacia from the prior infarcts. The sella is not enlarged and the expected carotid flow voids are evident bilaterally. The orbits are symmetrical and within normal limits. The sinuses are generally clear. The seventh and eighth nerve complexes are unremarkable IMPRESSION: 1. There is an acute/subacute nonhemorrhagic infarct involving the right [place]. 2. There is no sign of hemorrhage and no other acute abnormality identified. 3. There has been an increase in the encephalomalacia in the left parietal lobe in the interval since the prior exam. 4. These results were called to Dr. Jeremiah Alvarez. CRITICAL FINDINGS Dictated by: Dictated on workstation # [id number]
--- NOTE | 2018-02-20 12:30 | Diagnostic Imaging Report ---
PA and lateral chest at 9:30 Indication: Respiratory distress. The appearance of the chest has improved somewhat since 02/19/2018 as the heart has decreased in size and the central pulmonary vascular is not quite as prominent. Both lung bases remain opacified by atelectasis/infiltrate and fluid however. The upper lungs are clear. The mediastinum is not widened. The osseous structures are intact. Impression: 1. The appearance of the chest has improved as there does seem to be less pulmonary congestion. There is persistent opacification of both lower lungs by atelectasis/infiltrate and fluid however. A followup exam would be recommended for continued study. 2. These results were discussed with Dr. Alvarez. Dictated by: Dictated on workstation # [id number]
[2018-02-20] MEDS ORDERED: NS IV 500 ML 500 ML IV ONE (13:45)
[2018-02-20] MEDS ORDERED: FUROSEMIDE 40 MG/4 ML INJ (LASIX) IVP NR (16:00)
[2018-02-20] MEDS: RIVAROXABAN 15 MG TABLET (XARELTO) PO SCH (17:50)
[2018-02-20 20:00] VITALS: BP 107/53
[2018-02-21] MEDS: PIPERACILLIN/TAZOBACTAM 3.375 GM in D5W 100 ML IVPB 100 ML IV SCH ×3 (04:01→20:10)
[2018-02-21 05:54] LABS: HEMATOCRIT 33 % (35-52); HEMOGLOBIN 10.2 G/DL (11.5-16.0); MEAN CORPUSCULAR HEMOGLOBIN 26 PG (25-34); MEAN CORPUSCULAR HGB CONC 31 G/DL (32-36); MEAN CORPUSCULAR VOLUME 82 FL (80-99); PLATELET COUNT 101 10^3/uL (130-400); RED BLOOD COUNT 3.99 10^6/uL (4.35-5.85); RED CELL DISTRIBUTION WIDTH 18.6 % (10.0-14.5); WHITE BLOOD COUNT 9.1 10^3/uL (4.3-11.0)
[2018-02-21 06:16] LABS: PROTHROMBIN TIME PATIENT 50.1 SEC (12.2-14.7)
[2018-02-21 06:17] LABS: INR 5.5 (0.8-1.4)
[2018-02-21 06:19] LABS: ALBUMIN 2.9 GM/DL (3.2-4.5); BILIRUBIN,TOTAL 0.7 MG/DL (0.1-1.0); CALCIUM 7.7 MG/DL (8.5-10.1); CREATININE SERUM 1.01 MG/DL (0.60-1.30); MAGNESIUM 1.9 MG/DL (1.8-2.4); TOTAL PROTEIN 5.2 GM/DL (6.4-8.2)
[2018-02-21] MEDS: NS IV 1000 ML 1,000 ML IV SCH ×3 (06:44→17:00)
[2018-02-21 08:05] VITALS: BP 115/85
[2018-02-21] MEDS: RT-ALBUTEROL SULF 2.5 MG/3 ML PRE-MIX VIAL INH SCH ×2 (08:35→19:44)
[2018-02-21] MEDS: ASPIRIN 81 MG CHEW (CHILDREN'S ASA) PO SCH (09:54)
[2018-02-21 11:08] VITALS: BP 110/70
--- NOTE | 2018-02-21 11:55 | Progress Note-Hospitalist ---
Subjective HPI/CC On Admission Date Seen by Provider: Feb 21, 2018 Time Seen by Provider: 10:30 Subjective/Events-last exam Patient breathing better Reviewed MRI and chest x-ray Reviewed current medications Denies any pain Very difficult to understand due to dysarthria Patient stable but INR 5.5 so will remain in the stepdown unit Holding Xarelto Review of Systems General: Fatigue, Malaise Pulmonary: Dyspnea, Cough Focused Exam Lactate Level 02/20/18 17:22: Lactic Acid Level 2.27*H 02/20/18 19:17: Lactic Acid Level 1.65 02/21/18 05:00: Lactic Acid Level 1.51 Objective Exam Vital Signs Vital Signs Date Time Temp Pulse Resp B/P (MAP) Pulse Ox O2 Delivery O2 Flow Rate FiO2 02/21/18 11:16 Nasal Cannula 1.00 02/21/18 11:08 97.3 86 16 110/70 (83) 100 02/19/18 23:39 28 Capillary Refill : Less Than 3 Seconds General Appearance: No Apparent Distress, WD/WN, Chronically ill, Cachetic Respiratory: Crackles, Decreased Breath Sounds Cardiovascular: No Edema, Irregularly Irregular Neurologic/Psychiatric: Alert, Oriented x3, Other (dysarthria) Skin: Normal Color, Warm/Dry Lymphatic: No Adenopathy Results/Procedures Lab Laboratory Tests 02/21/18 05:00 02/21/18 05:20 Patient resulted labs reviewed. Assessment/Plan Assessment and Plan Assess & Plan/Chief Complaint Assessment: Pneumonia Chris CVA Plan: Hold Xarelto Appreciate cardiology consultation Check labs in a.m. Replace potassium Dysarthria management per stroke protocol Diagnosis/Problems Diagnosis/Problems (1) Pneumonia Status: Acute Qualifiers: Pneumonia type: due to unspecified organism Laterality: bilateral Lung location: lower lobe of lung Qualified Codes: J18.1 - Lobar pneumonia, unspecified organism (2) Coagulopathy Status: Acute Assessment & Plan: Hold Xarelto (3) Debility Status: Chronic (4) Advanced age Status: Chronic (5) Poor prognosis Status: Chronic (6) Congestive heart failure Status: Acute Assessment & Plan: Cardiology consultation is appreciated Qualifiers: Heart failure type: unspecified Heart failure chronicity: unspecified Qualified Codes: I50.9 - Heart failure, unspecified (7) CVA (cerebral infarction) Status: Acute Assessment & Plan: MRI reveals right chris CVA but had h/o CVA 2014 (8) Renal insufficiency Status: Chronic (9) Atrial fibrillation Status: Chronic Assessment & Plan: Cardiology consultation is appreciated Qualifiers: Atrial fibrillation type: chronic Qualified Codes: I48.2 - Chronic atrial fibrillation (10) Dysarthria Status: Acute Assessment & Plan: Speech therapy evaluation (11) Hypokalemia Status: Acute Assessment & Plan: Replace Clinical Quality Measures DVT/VTE Risk/Contraindication: Risk Factor Score Per Nursin RFS Level Per Nursing on Admit: 4+=Very High Contraindications-Pharm: Other *list below* Stroke: Date of last known well: Feb 19, 2018 SUZANNE SAENZ DO Feb 21, 2018 11:55
[2018-02-21] MEDS ORDERED: LACTULOSE SYRUP 10GM/15ML (ENULOSE) 30ML UDC PO PRN (12:00)
[2018-02-21] MEDS: KCL 20 MEQ TAB (K-DUR) PO SCH ×3 (12:48→17:23)
--- NOTE | 2018-02-21 13:53 | Progress Note-Cardiology ---
Cardiology SOAP Progress Note Subjective: No new symptoms Objective: I&O/Vital Signs 02/21/18 02/21/18 02/21/18 02/21/18 07:00 08:05 08:35 11:08 Temp 98.9 97.3 Pulse 78 80 86 Resp 14 16 B/P (MAP) 115/85 (95) 110/70 (83) Pulse Ox 98 98 100 O2 Delivery Nasal Cannula Nasal Cannula Nasal Cannula O2 Flow Rate 2.00 2.00 2.00 02/21/18 11:16 O2 Delivery Nasal Cannula O2 Flow Rate 1.00 02/21/18 00:00 Intake Total 1890 ml Output Total 650 ml Balance 1240 ml Weight (Pounds): 98 Weight (Ounces): 5.0 Weight (Calculated Kilograms): 44.993309 Constitutional: AAO x 3, well-developed, other (thin appearing) Respiratory: No accessory muscle use; lungs clear to percussion, lungs clear to auscultation Cardiovascular: irregularly irregular, S1 and S2, systolic murmur (soft BRIGID at card base) Gastrointestional: No tender; soft; No guarding, No rebound; audible bowel sounds Extremities: No clubbing, No cyanosis, No significant edema Neurologic/Psychiatric: other (dysrthria; move all limbs equally; alert and oriented) Skin: No rash on exposed areas, No ulcerations on exposed areas Results/Procedures: Labs Laboratory Tests 02/20/18 17:22: Lactic Acid Level 2.27*H 02/20/18 19:17: Lactic Acid Level 1.65 02/21/18 05:00: Lactic Acid Level 1.51, White Blood Count 9.1, Red Blood Count 3.99L, Hemoglobin 10.2L, Hematocrit 33L, Mean Corpuscular Volume 82, Mean Corpuscular Hemoglobin 26, Mean Corpuscular Hemoglobin Concent 31L, Red Cell Distribution Width 18.6H, Platelet Count 101L, Mean Platelet Volume 02/21/18 05:20: Prothrombin Time 50.1*H, INR Comment 5.5*H, Sodium Level 140, Potassium Level 3.0L, Chloride Level 108H, Carbon Dioxide Level 19L, Anion Gap 13, Blood Urea Nitrogen 20H, Creatinine 1.01, Estimat Glomerular Filtration Rate 52, BUN/ Creatinine Ratio 20, Glucose Level 91, Calcium Level 7.7L, Magnesium Level 1.9, Total Bilirubin 0.7, Aspartate Amino Transf (AST/SGOT) 16, Alanine Aminotransferase (ALT/SGPT) 13, Alkaline Phosphatase 65, Total Protein 5.2L, Albumin 2.9L, Thyroid Stimulating Hormone (TSH) 1.94 Microbiology 02/19/18 Blood Culture - Preliminary, Resulted No growth Laboratory Tests 02/19/18 19:45 02/20/18 03:10 02/21/18 05:00 02/21/18 05:20 A/P: Assessment: R [place] nonhemorrhagic stroke on 02/19/18 - Medical Service managing Chronic persistent A fib, first diagnosed in Oct 2013, rate controlled Chronic rivaroxaban therapy for stroke prophylaxis Acute on chronic systolic CHF, clinically improved Electrolyte abnormalities likely d/t chronic diuretic tx CAD. S/p mid RCA stent (Integrity 2.75x12) in early Oct 2013 following presentation with ac NSTEMI. The rest of the cors had diffuse mod disease with stenoses of upto 50-60%. MPI of 07/11/17 showed no ischemia of infarction and LVEF of 45% (subjectively felt to be higher) Ischemic cm. Cath of 11/08/13, prior to PCI, showed LVEF 35-40% and elev LVEDP Apparently intolerant to ANTOINE-inhibitor and ARB due to worsening of renal function. This is being managed by Dr Alvarez Echocardiogram of 01/24/17: LVEF 40%, triv MR and TR, PASP 35 mm Hg. ( essentially unchanged compaed to echo of December 2014) Carotid u/s from January 09, 2015 showed bilat plaque at the carotid bifurcation with velocities suggestive of underlying stenosis in the range of 60-79% in the right ICA, and in the left ICA 0-40%, unchanged on subsequent carotid u/s of . Carotid u/s of January 2017 showed mod bilat carotid plaque Anemia diagnosed at time of hospitalization of Oct 2013. Etiology unclear. 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 Cr 1.16 and eGFR 43 on 12/30/16 Plan: * Continue diuretics; replenish K * Continue rivaroxaban, adjusted to age, low body wgt, and renal function. This is for stroke prophylaxis (because of ch a fib) * She had been on ASA, but has not been taking it. We advise reinitiation of low -dose aspirin (because of CAD and carotid art disease) * Follow labs * Medical Svce to manage stroke Clinical Quality Measures Stroke: Date of last known well: Feb 19, 2018 RONNI YEE MD FACP FAC CCDS Feb 21, 2018 13:53
--- NOTE | 2018-02-21 14:17 | Diagnostic Imaging Report ---
INDICATION: Follow-up pneumonia. EXAMINATION: Two-view chest dated 02/21/2018. COMPARISON: 02/20/2018. FINDINGS: Two views of the chest. There is cardiomegaly. Pulmonary vasculature is slightly prominent. Bibasilar infiltrates and effusions noted which are slightly increased from previous. Remaining lungs stable. IMPRESSION: 1. Slight increase in bibasilar infiltrates and effusions. 2. Mild pulmonary vascular congestion. Dictated by: Dictated on workstation # [id number]
[2018-02-21] MEDS ORDERED: KCL 20 MEQ TAB (K-DUR) PO SCH (16:00)
[2018-02-21 16:35] VITALS: BP 134/85
[2018-02-21] MEDS: RIVAROXABAN 15 MG TABLET (XARELTO) PO SCH (17:23)
[2018-02-21 19:06] VITALS: BP 115/81
[2018-02-21] MEDS: DOCUSATE SODIUM 100 MG (COLACE) CAP PO SCH (20:10)
[2018-02-21] MEDS: CATHETER FLUSH 10 ML SYR IV SCH (20:10)
[2018-02-21] MEDS: POLYETHYLENE GLYCOL 17 GM (MIRALAX) PACK PO SCH (20:10)
[2018-02-22] VITALS (7 sets, daily range): BP systolic 123–162; BP diastolic 71–84
[2018-02-22] MEDS: RT-ALBUTEROL SULF 2.5 MG/3 ML PRE-MIX VIAL INH PRN (01:48)
[2018-02-22] MEDS: PIPERACILLIN/TAZOBACTAM 3.375 GM in D5W 100 ML IVPB 100 ML IV SCH ×3 (04:41→19:47)
[2018-02-22] MEDS: CATHETER FLUSH 10 ML SYR IV SCH ×3 (05:27→20:20)
[2018-02-22 06:03] LABS: BASOPHILS % (AUTO) 0 % (0-10); EOSINOPHILS # (AUTO) 0.1 10^3/uL (0.0-0.3); EOSINOPHILS % (AUTO) 1 % (0-10); HEMATOCRIT 32 % (35-52); HEMOGLOBIN 10.2 G/DL (11.5-16.0); LYMPHOCYTES % (AUTO) 9 % (12-44); MEAN CORPUSCULAR HEMOGLOBIN 26 PG (25-34); MEAN CORPUSCULAR HGB CONC 32 G/DL (32-36); MEAN CORPUSCULAR VOLUME 83 FL (80-99); MONOCYTES # (AUTO) 2.5 X 10^3 (0.0-1.0); MONOCYTES % (AUTO) 22 % (0-12); NEUTROPHILS # (AUTO) 7.6 X 10^3 (1.8-7.8); NEUTROPHILS % (AUTO) 68 % (42-75); PLATELET COUNT 105 10^3/uL (130-400); RED BLOOD COUNT 3.89 10^6/uL (4.35-5.85); RED CELL DISTRIBUTION WIDTH 18.7 % (10.0-14.5); WHITE BLOOD COUNT 11.1 10^3/uL (4.3-11.0)
[2018-02-22 06:30] LABS: ALANINE AMINOTRANSFERASE 16 U/L (0-55); ALKALINE PHOSPHATASE 55 U/L (40-136); BILIRUBIN,TOTAL 0.8 MG/DL (0.1-1.0); BUN/CREATININE RATIO 23; CALCIUM 8.3 MG/DL (8.5-10.1); CARBON DIOXIDE 15 MMOL/L (21-32); CHLORIDE 113 MMOL/L (98-107); GFR ESTIMATED > 60; GLUCOSE 105 MG/DL (70-105); POTASSIUM 5.1 MMOL/L (3.6-5.0); SODIUM 139 MMOL/L (135-145); TOTAL PROTEIN 5.8 GM/DL (6.4-8.2)
[2018-02-22] MEDS: RT-ALBUTEROL SULF 2.5 MG/3 ML PRE-MIX VIAL INH SCH ×2 (07:04→19:07)
[2018-02-22] MEDS: ASPIRIN 81 MG CHEW (CHILDREN'S ASA) PO SCH (08:33)
[2018-02-22] MEDS: DOCUSATE SODIUM 100 MG (COLACE) CAP PO SCH ×2 (08:35→20:19)
[2018-02-22] MEDS: POLYETHYLENE GLYCOL 17 GM (MIRALAX) PACK PO SCH ×2 (08:36→20:19)
--- NOTE | 2018-02-22 11:00 | Progress Note-Hospitalist ---
Subjective HPI/CC On Admission Date Seen by Provider: Feb 22, 2018 Time Seen by Provider: 10:00 Subjective/Events-last exam Daughter very concerned about a change in her mother status Vitals remained stable and there've been no changes per nursing staff Confusion noted by daughter of which delirium is not surprising given pneumonia advanced age and previous stroke. Patient is DO NOT RESUSCITATE and overall prognosis is extremely poor and I updated the daughter which she reports she understands that but then the next that it scared her that she appeared to be having an episode that could mean she was in the dying process so I'm unsure if she is able to understand the overall poor prognosis of the patient has. Chest x-ray noted to have some progression of the pneumonia but not hypoxic no fever and overall no indication we have to overhaul the antibiotic coverage that she is just so poorly compliant with incentive spirometry and nebulizer treatments that it does not surprise me that the lungs cease to improve on chest x-ray Review of Systems General: Fatigue, Malaise Neurological: Confusion Focused Exam Lactate Level 02/20/18 17:22: Lactic Acid Level 2.27*H 02/20/18 19:17: Lactic Acid Level 1.65 02/21/18 05:00: Lactic Acid Level 1.51 Objective Exam Vital Signs Vital Signs Date Time Temp Pulse Resp B/P (MAP) Pulse Ox O2 Delivery O2 Flow Rate FiO2 02/22/18 16:00 97.3 93 18 162/76 (104) 97 Nasal Cannula 2.00 02/22/18 07:08 28 Capillary Refill : Less Than 3 Seconds General Appearance: No Apparent Distress, WD/WN, Chronically ill, Thin, Other ( very frail) Respiratory: Lungs Clear, Normal Breath Sounds, Decreased Breath Sounds (bases) Cardiovascular: No Edema, Irregularly Irregular Neurologic/Psychiatric: Alert, No Motor/Sensory Deficits, Normal Mood/Affect, Other (subtle poor recall, dysarthria) Results/Procedures Lab Laboratory Tests 02/21/18 21:01 02/22/18 05:25 Patient resulted labs reviewed. Assessment/Plan Assessment and Plan Assess & Plan/Chief Complaint Assessment: Pneumonia Chris CVA Delirium Plan: INR inaccurate due to Xarelto Appreciate cardiology consultation Check labs in a.m. hold potassium Dysarthria management per stroke protocol Poor prognosis overall Diagnosis/Problems Diagnosis/Problems (1) Pneumonia Status: Acute Qualifiers: Pneumonia type: due to unspecified organism Laterality: bilateral Lung location: lower lobe of lung Qualified Codes: J18.1 - Lobar pneumonia, unspecified organism (2) Coagulopathy Status: Acute Assessment & Plan: Due Xarelto (3) Debility Status: Chronic (4) Advanced age Status: Chronic (5) Poor prognosis Status: Chronic (6) Congestive heart failure Status: Acute Assessment & Plan: Cardiology consultation is appreciated Qualifiers: Heart failure type: unspecified Heart failure chronicity: unspecified Qualified Codes: I50.9 - Heart failure, unspecified (7) CVA (cerebral infarction) Status: Acute Assessment & Plan: MRI reveals right hcris CVA but had h/o CVA 2014 (8) Renal insufficiency Status: Chronic (9) Atrial fibrillation Status: Chronic Assessment & Plan: Cardiology consultation is appreciated Qualifiers: Atrial fibrillation type: chronic Qualified Codes: I48.2 - Chronic atrial fibrillation (10) Dysarthria Status: Acute Assessment & Plan: Speech therapy evaluation (11) Hypokalemia Status: Resolved Assessment & Plan: Replace (12) Delirium Status: Acute Assessment & Plan: Declined overall and predict slow recovery if any at all (13) Thrombocytopenia Status: Chronic Clinical Quality Measures DVT/VTE Risk/Contraindication: Risk Factor Score Per Nursin RFS Level Per Nursing on Admit: 4+=Very High Contraindications-Pharm: Other *list below* Stroke: Date of last known well: Feb 19, 2018 SUZANNE SAENZ DO Feb 22, 2018 11:00
--- NOTE | 2018-02-22 12:53 | Progress Note-Cardiology ---
Cardiology SOAP Progress Note Subjective: No new symptoms No cp or palp or syncope Objective: I&O/Vital Signs 02/22/18 02/22/18 02/22/18 02/22/18 01:49 04:00 06:59 07:05 Temp 97.8 Pulse 113 127 Resp 16 B/P (MAP) 134/84 (101) Pulse Ox 94 95 98 O2 Delivery Nasal Cannula Nasal Cannula Nasal Cannula O2 Flow Rate 2.00 2.00 2.00 02/22/18 02/22/18 02/22/18 07:08 08:00 12:30 Temp 99.1 Pulse 113 111 101 Resp 20 B/P (MAP) 130/84 (99) Pulse Ox 98 99 O2 Delivery Nasal Cannula O2 Flow Rate 2.00 FiO2 28 02/22/18 00:00 Intake Total 2390 ml Output Total 600 ml Balance 1790 ml Weight (Pounds): 92 Weight (Ounces): 8.0 Weight (Calculated Kilograms): 41.204819 Constitutional: AAO x 3, well-developed, other (thin appearing) Respiratory: No accessory muscle use; lungs clear to percussion, lungs clear to auscultation Cardiovascular: irregularly irregular, S1 and S2, systolic murmur (soft BRIGID at card base) Gastrointestional: No tender; soft; No guarding, No rebound; audible bowel sounds Extremities: No clubbing, No cyanosis, No significant edema Neurologic/Psychiatric: other (dysrthria; move all limbs equally; alert and oriented) Skin: No rash on exposed areas, No ulcerations on exposed areas Results/Procedures: Labs Laboratory Tests 02/21/18 21:01: Potassium Level 5.1H 02/22/18 05:25: Potassium Level 5.1H, White Blood Count 11.1H, Red Blood Count 3.89L, Hemoglobin 10.2L, Hematocrit 32L, Mean Corpuscular Volume 83, Mean Corpuscular Hemoglobin 26, Mean Corpuscular Hemoglobin Concent 32, Red Cell Distribution Width 18.7H, Platelet Count 105L, Mean Platelet Volume , Neutrophils (%) (Auto) 68, Lymphocytes (%) (Auto) 9L, Monocytes (%) (Auto) 22H, Eosinophils (%) (Auto) 1, Basophils (%) (Auto) 0, Neutrophils # (Auto) 7.6, Lymphocytes # (Auto) 1.0, Monocytes # (Auto) 2.5H, Eosinophils # (Auto) 0.1, Basophils # (Auto) 0.0, Sodium Level 139, Chloride Level 113H, Carbon Dioxide Level 15L, Anion Gap 11, Blood Urea Nitrogen 18, Creatinine 0.80, Estimat Glomerular Filtration Rate > 60 , BUN/Creatinine Ratio 23, Glucose Level 105, Calcium Level 8.3L, Total Bilirubin 0.8, Aspartate Amino Transf (AST/SGOT) 18, Alanine Aminotransferase ( ALT/SGPT) 16, Alkaline Phosphatase 55, Total Protein 5.8L, Albumin 3.0L Microbiology 02/19/18 Blood Culture - Preliminary, Resulted No growth A/P: Assessment: R [place] non-hemorrhagic stroke on 02/19/18 - Medical Service managing Chronic persistent A fib, first diagnosed in Oct 2013, rate currently not well controlled Chronic rivaroxaban therapy for stroke prophylaxis. Elevated INR due to chronic rivaroxaban therapy. INR is elevated in most patients on Direct Xa inhibitors ( especially rivaroxaban) and cannot be used to monitor therapy or adjust dose Metabolic acidosis is indicated on blood work of 02/22/18 Acute on chronic systolic CHF, clinically improved CAD. S/p mid RCA stent (Integrity 2.75x12) in early Oct 2013 following presentation with ac NSTEMI. The rest of the cors had diffuse mod disease with stenoses of upto 50-60%. MPI of 07/11/17 showed no ischemia of infarction and LVEF of 45% (subjectively felt to be higher) Ischemic cm. Cath of 11/08/13, prior to PCI, showed LVEF 35-40% and elev LVEDP Apparently intolerant to ANTOINE-inhibitor and ARB due to worsening of renal function. This is being managed by Dr Alvarez Echocardiogram of 01/24/17: LVEF 40%, triv MR and TR, PASP 35 mm Hg. ( essentially unchanged compaed to echo of December 2014) Carotid u/s from January 09, 2015 showed bilat plaque at the carotid bifurcation with velocities suggestive of underlying stenosis in the range of 60-79% in the right ICA, and in the left ICA 0-40%, unchanged on subsequent carotid u/s of . Carotid u/s of January 2017 showed mod bilat carotid plaque Anemia diagnosed at time of hospitalization of Oct 2013. Etiology unclear. 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 Cr 1.16 and eGFR 43 on 12/30/16 Plan: * Add bicarb to infusion (on account of met acidosis) * Monitor labs * Continue rivaroxaban, adjusted to age, low body wgt, and renal function. This is for stroke prophylaxis (because of ch a fib) * Continue low-dose aspirin (because of CAD and carotid art disease) * Stop clopidogrel to reduce risk of bleeding. (She has considerable risk of bleeding if she remain on ASA + clopidogrel + rivaroxaban.) * Increase beta-shai for better ventricular rate control * Medical Svce to manage stroke * I discussed her CV issues with her and her daughter Clinical Quality Measures Stroke: Date of last known well: Feb 19, 2018 RONNI YEE MD FACP FACC CCDS Feb 22, 2018 12:53
[2018-02-22] MEDS ORDERED: DILTIAZEM 240 MG (CARDIZEM CD) CAP PO NR (13:30)
[2018-02-22] MEDS: SODIUM BICARBONATE 8.4% VIAL 75 MEQ in 1/2 NS IV SOLUTION 1,000 ML IV SCH (13:58)
[2018-02-22] MEDS: RIVAROXABAN 15 MG TABLET (XARELTO) PO SCH (16:42)
[2018-02-22] MEDS: ATORVASTATIN 10 MG (LIPITOR) TABLET PO SCH (20:19)
[2018-02-23] VITALS: BP 120/71
[2018-02-23] MEDS: CATHETER FLUSH 10 ML SYR IV SCH ×3 (03:45→20:30)
[2018-02-23] MEDS: PIPERACILLIN/TAZOBACTAM 3.375 GM in D5W 100 ML IVPB 100 ML IV SCH ×3 (03:45→20:30)
[2018-02-23 04:00] VITALS: BP 128/80
[2018-02-23] MEDS: PANTOPRAZOLE 20 MG TABLET (PROTONIX) PO SCH (06:11)
[2018-02-23] MEDS: SODIUM BICARBONATE 8.4% VIAL 75 MEQ in 1/2 NS IV SOLUTION 1,000 ML IV SCH (06:11)
--- NOTE | 2018-02-23 06:47 | Pulmonary Progress Note ---
Subjective Time Seen by Provider: 08:57 Subjective/Events-last exam SOB NPC Focused Exam Lactate Level 02/20/18 17:22: Lactic Acid Level 2.27*H 02/20/18 19:17: Lactic Acid Level 1.65 02/21/18 05:00: Lactic Acid Level 1.51 Exam Exam Vital Signs Date Time Temp Pulse Resp B/P (MAP) Pulse Ox O2 Delivery O2 Flow Rate FiO2 02/23/18 04:00 96.6 106 16 128/80 (96) 94 Nasal Cannula 3.00 02/23/18 01:00 98 02/23/18 00:00 98.9 106 16 120/71 (87) 91 Nasal Cannula 3.00 02/22/18 20:00 98.0 79 18 136/71 (92) 93 Nasal Cannula 3.00 02/22/18 19:40 Nasal Cannula 2.00 02/22/18 19:07 89 Nasal Cannula 3.00 02/22/18 19:00 78 02/22/18 16:00 97.3 93 18 162/76 (104) 97 Nasal Cannula 2.00 02/22/18 12:30 101 02/22/18 12:00 98.6 94 22 154/75 (101) 94 Nasal Cannula 2.00 02/22/18 09:00 Nasal Cannula 2.00 02/22/18 08:00 99.1 111 20 130/84 (99) 99 Nasal Cannula 2.00 02/22/18 07:08 113 98 28 02/22/18 07:05 98 Nasal Cannula 2.00 02/22/18 06:59 127 I & O 02/23/18 07:00 Intake Total 1550 ml Balance 1550 ml General Appearance: No Apparent Distress, WD/WN, Chronically ill, Thin, Other ( very frail) HEENT: Normal ENT Inspection, Other (Speech is not intelligible) Neck: Full Range of Motion, Normal Inspection Respiratory: Lungs Clear, Normal Breath Sounds, Decreased Breath Sounds (bases) Cardiovascular: No Edema, Irregularly Irregular Capillary Refill: Less Than 3 Seconds Extremity: Normal Capillary Refill, Normal Inspection Neurologic/Psychiatric: Alert, No Motor/Sensory Deficits, Normal Mood/Affect, Other (subtle poor recall, dysarthria) Skin: Normal Color, Warm/Dry Lymphatic: No Adenopathy Results Lab Laboratory Tests 02/21/18 21:01 02/22/18 05:25 Assessment/Plan Assessment/Plan CVA /R [place] non-hemorrhagic stroke on 02/19/18 Worsening metabolic acidosis with hyperkalemia -Pt was placed on Bicarb gtt yesterday -Labs for this AM are pending -Afebrile -repeat CXR CHF EF is 35-40% SOB with pulmonary edema with hypoxia -monitor close Persistent AFIB -On Xarelto 232 SHAHBAZ NOLAN DO Feb 23, 2018 06:47
[2018-02-23] MEDS: RT-ALBUTEROL SULF 2.5 MG/3 ML PRE-MIX VIAL INH SCH ×2 (07:24→19:18)
--- NOTE | 2018-02-23 07:54 | Diagnostic Imaging Report ---
INDICATION: Congestive heart failure, pneumonia, shortness of breath. Compared 02/21/2018. FINDINGS: Vascular congestion and perihilar edema and bilateral pleural effusions have increased. Pneumonia superimposed radiographically could not be excluded. There is no pneumothorax. IMPRESSION: Radiographic findings suggest worsening failure pattern with progressive vascular congestion, pulmonary edema and pleural fluid. Dictated by: Dictated on workstation # [id number]
--- NOTE | 2018-02-23 08:02 | Progress Note (SOAP) ---
Subjective Time Seen by Provider: 07:55 Subjective/Events-last exam According to daughter and patient she is doing better. Patient is saying some words today. Lung congestion according to them is breaking up. Patient had CVA gets affecting her speech Focused Exam Lactate Level 02/20/18 17:22: Lactic Acid Level 2.27*H 02/20/18 19:17: Lactic Acid Level 1.65 02/21/18 05:00: Lactic Acid Level 1.51 Objective Exam Vital Signs Date Time Temp Pulse Resp B/P (MAP) Pulse Ox O2 Delivery O2 Flow Rate FiO2 02/23/18 07:29 88 Nasal Cannula 02/23/18 04:00 96.6 106 16 128/80 (96) 94 Nasal Cannula 3.00 02/23/18 01:00 98 02/23/18 00:00 98.9 106 16 120/71 (87) 91 Nasal Cannula 3.00 02/22/18 20:00 98.0 79 18 136/71 (92) 93 Nasal Cannula 3.00 02/22/18 19:40 Nasal Cannula 2.00 02/22/18 19:07 89 Nasal Cannula 3.00 02/22/18 19:00 78 02/22/18 16:00 97.3 93 18 162/76 (104) 97 Nasal Cannula 2.00 02/22/18 12:30 101 02/22/18 12:00 98.6 94 22 154/75 (101) 94 Nasal Cannula 2.00 02/22/18 09:00 Nasal Cannula 2.00 02/22/18 08:00 99.1 111 20 130/84 (99) 99 Nasal Cannula 2.00 I & O 02/23/18 07:00 Intake Total 1650 ml Balance 1650 ml Capillary Refill : Less Than 3 Seconds General Appearance: No Apparent Distress, Thin HEENT: Normal ENT Inspection, Other (CVA affecting speech) Neck: Full Range of Motion, Normal Inspection Respiratory: No Accessory Muscle Use, No Respiratory Distress, Other (Loose congestion when he coughs) Cardiovascular: Irregularly Irregular Gastrointestinal: non tender, soft, other (And move all extremities) Results Lab Microbiology 02/19/18 Blood Culture - Preliminary, Resulted No growth Assessment/Plan Assessment/Plan Assess & Plan/Chief Complaint CVA. A. fib. CHF. Dysarthria. Coronary artery disease. Chest x-ray looks worse the other day Clinical Quality Measures Admission Status Admission Dx CVA. Pulmonary edema. Pneumonia. Short of breath. Mumbled speech. Atrial fibrillation. Cataracts DVT/VTE Risk/Contraindication: Risk Factor Score Per Nursin RFS Level Per Nursing on Admit: 4+=Very High Contraindications-Pharm: Other *list below* Stroke: Date of last known well: Feb 19, 2018 ARGENIS JERRY DO Feb 23, 2018 08:02
[2018-02-23 08:30] VITALS: BP 121/77
[2018-02-23] MEDS ORDERED: FUROSEMIDE 40 MG/4 ML INJ (LASIX) ONE (08:34)
--- NOTE | 2018-02-23 08:56 | ST Cognitive Linguistic Eval ---
Speech Evaluation-General Medical Diagnosis CVA (Chris), Pneumonia, Delirium Onset Date: Feb 19, 2018 Therapy Diagnosis Therapy Diagnosis: Moderate Dysarthria Precautions Precautions/Isolations: Fall Prevention, Standard Precautions Referral Referring Physician: Dr. Yulia Cardoza Reason for Referral: Evaluation/Treatment Dysarthria Evaluation Medical History Pertinent Medical History: Atrial Fib, CAD, CVA, HTN, [place] Current History The patient was admitted to on 02/19/2018 with a diagnosis of a chris CVA. Per patient's niece, the patient was found unable to talk on evening. The patient and niece denied additional deficits. Reviewed History: Yes Speech PLF-Current Status Prior Level of Function The patient experienced a CVA in 2014. Per patient and niece, all speech, language, and cognitive skills returned to baseline following the CVA. Subjective The patient was sitting upright in bed, eating breakfast upon entrance. The patient greeted the clinician appropriately and was agreeable to participation in the dysarthria evaluation. To note, the patient is receiving 3L supplemental oxygen via nasal cannula, however, remains extremely short of breath upon speaking. The clinician increased the patient's SpO2 to 4 liters and notified the RN. Objective Oral Motor/Speech Production A cursory oral mechanism evaluation was completed with the following results: Lingual protrusion was ad midline upon protrusion. Reduced right sided lateral range of motion was noted, with adequate left sided range of motion. Reduced right labial retraction with adequate left sided labial retraction. Adequate and symmetrical velar elevation. Adequate laryngeal elevation. The patient's vocal quality was weak with consistent glottal vuong throughout the evaluation. Rapid respirations with clavicular breathing was noted and shared with the patient's RN. Imprecise articulation was noted with all consonants, as well as, reduced rate of speech. Consonant repetition was imprecise, slurred, and slowed. The patient' s intelligibility is judged to be less than 40% in known contexts and less than 25% in unknown contexts. Impression The patient presents with moderate dysarthria characterized by imprecise articulation, poor coordination throughout speech sound transitions, and decreased rate of speech. Speech Short Term Goals Short Term Goals Short Term Goals 1. The patient will demonstrate 60% accuracy with repetition of single and multi -syllabic bilabial words. 2. The patient will display 75% accuracy with oral motor exercises. Time Frame-STG: Three Days Speech Half-Way Goals Machine Clothing Worker Goals 1. The patient will display increased intelligibility through expressive communication. Time Frame: One Week Speech-Plan Treatment Plan Speech Therapy Treatment Plan: Continue Plan of Care Continue skilled speech pathology to target improved intelligibility. Treatment Duration: Mar 02, 2018 Frequency: 3 times per week Estimated Hrs Per Day: .25 hour per day Rehab Potential: Guarded Safety Risks/Education Teaching Recipient: Patient, Family Teaching Methods: Discussion Response to Teaching: Verbalize Understanding Education Topics Provided: Results, Plan of Care Discharge Recommendations [facility] ([facility]) (The [facility] Time Speech Therapy Time In: 08:05 Speech Therapy Time Out: 08:20 Total Billed Time: 15 Billed Treatment Time 1, DARWIN TORRES Feb 23, 2018 08:56
[2018-02-23] MEDS: DOCUSATE SODIUM 100 MG (COLACE) CAP PO SCH ×2 (09:00→20:30)
[2018-02-23] MEDS ORDERED: CLOPIDOGREL 75 MG (PLAVIX) TABLET PO SCH (09:00)
[2018-02-23] MEDS ORDERED: FUROSEMIDE 40 MG/4 ML INJ (LASIX) IVP ONE (09:00)
[2018-02-23] MEDS: DILTIAZEM 240 MG (CARDIZEM CD) CAP PO SCH (09:01)
[2018-02-23] MEDS: meTOproloL SUCCINATE 50 MG (TOPROL XL) TAB PO SCH (09:01)
[2018-02-23] MEDS: ASPIRIN 81 MG CHEW (CHILDREN'S ASA) PO SCH (09:02)
[2018-02-23] MEDS: POLYETHYLENE GLYCOL 17 GM (MIRALAX) PACK PO SCH ×2 (09:03→20:30)
--- NOTE | 2018-02-23 09:06 | ST Dysphagia Evaluation ---
Speech Evaluation-General Medical Diagnosis CVA (Chris), Pneumonia, Delirium Onset Date: Feb 19, 2018 Therapy Diagnosis Therapy Diagnosis: Mild Oropharyngeal Dysphagia Precautions Precautions: Aspiration Precautions/Isolations: Fall Prevention, Standard Precautions Referral Referring Physician: Dr. Yulia Cardoza Reason for Referral: Evaluation/Treatment Bedside Swallowing Evaluation Medical History Pertinent Medical History: Atrial Fib, CAD, CVA, HTN, [place] Current History The patient was recently admitted to [facility] following a chris CVA. Reviewed History: Yes Speech PLF/Current-Dysphagia Prior Level of Function The patient and her niece denied prior difficulties with swallowing any consistency or signs/symptoms of aspiration. Subjective The patient was sitting upright in bed, eating breakfast upon entrance. Per patient's niece, the patient has struggled with drinking liquids, especially through a straw, since admission. The niece reports the patient coughs and chokes so "she just chooses not to drink anymore and it's making her hydration worse." The patient stated she has difficulty swallowing "all things" including liquids. As the patient is admitted with a pneumonia diagnosis, a clinical bedside swallowing evaluation will occur. Cognitive Status Patient Orientation: Person, Place, Situation Oral Motor Skills Dentition: Natural Current Food Consistancy: Regular, Thin Liquids Ability to Follow Directions: Hard of Hearing Oral Expression Ability: Moderate Impairment Voice Voice Phonatory-Based Quality: Breathy, Weak Voice Pitch: Normal Voice Loudness: Moderately Soft/Quiet Face Facial Symmetry: Asymmetrical (Slight right decreased range of motion.) Oral-Facial Assessment Oral-Facial Dentition: Normal Labial Seal Description: Reduced ROM (Right.) Smile: Reduced ROM (Right.) Lingual Protrusion: Normal Lingual ROM: Abnormal (reduced right sided range of motion.) Lingual Strength: Normal Pharynx Velopharyngeal Move.: Normal Volitional Dry Swallow: Yes Productive Cough: Yes (The patient has a productive, rigorous cough at baseline.) Productive Throat Clear: Yes Dysphagia Evaluation Consistencies Presented: Regular, Thin Liquid, Pureed Oral Phase: Anterior Spillage (Thin liquid.) Pharyngeal Phase: Multiple Swallow Attempts, Reduced Laryngeal Elevation - No signs/symptoms of aspiration were demonstrated with thin liquid (via teaspoon or cup sip), puree, or solid consistency. The patient displayed an intermittent cough throughout the trials, however, the cough was present at baseline, did not correlate to swallowing boluses, and did not change in strength, frequency, or quality. Dietary Recommendations: Regular Liquid Recommendations: Thin Swallowing Precautions: Liquids from Cup, No Straw, Small Bites and Sips, Sitting 90 Degrees 30 Post Intake Dysphagia Evaluation Summary The patient displays mild oropharyngeal dysphagia characterized by decreased labial and lingual range of motion and decreased laryngeal elevation. Speech Short Term Goals Short Term Goals Short Term Goals 1. The patient will demonstrate 60% accuracy with repetition of single and multi -syllabic bilabial words. 2. The patient will display 75% accuracy with oral motor exercises. Time Frame-STG: Three Days Speech Product Design Engineer Goals [facility] Goals 1. The patient will display increased intelligibility through expressive communication. Time Frame: One Week Speech-Plan Treatment Plan Speech Therapy Treatment Plan: Discontinue ST Evaluation, only. Treatment Duration: Mar 02, 2018 Frequency: Modified Program (IRF) (Evaluation, only.) Estimated Hrs Per Day: Other (Evaluation, only.) Rehab Potential: Guarded Safety Risks/Education Teaching Recipient: Patient, Family Teaching Methods: Discussion Response to Teaching: Verbalize Understanding Education Topics Provided: Results, Recommendations [facility] Time Speech Therapy Time In: 08:20 Speech Therapy Time Out: 08:35 Total Billed Time: 15 Billed Treatment Time 1 DARWIN BRITO Feb 23, 2018 09:06
[2018-02-23 09:29] LABS: HEMATOCRIT 30 % (35-52); HEMOGLOBIN 9.2 G/DL (11.5-16.0); MEAN CORPUSCULAR HEMOGLOBIN 26 PG (25-34); MEAN CORPUSCULAR HGB CONC 31 G/DL (32-36); MEAN CORPUSCULAR VOLUME 83 FL (80-99); PLATELET COUNT 102 10^3/uL (130-400); RED BLOOD COUNT 3.56 10^6/uL (4.35-5.85); RED CELL DISTRIBUTION WIDTH 18.7 % (10.0-14.5)
[2018-02-23 09:42] LABS: CALCIUM 8.4 MG/DL (8.5-10.1); CREATININE SERUM 0.92 MG/DL (0.60-1.30); POTASSIUM 4.8 MMOL/L (3.6-5.0)
--- NOTE | 2018-02-23 09:56 | Physical Therapy Evaluation ---
PT Evaluation-General Medical Diagnosis Admission Date Feb 19, 2018 at 22:37 Medical Diagnosis: CVA (Chris), Pneumonia, Delirium Onset Date: Feb 19, 2018 Therapy Diagnosis Therapy Diagnosis: generalized weakness/debility Height/Weight Height (Feet): 5 Height (Inches): 2.00 Weight (Pounds): 95 Weight (Ounces): 2.0 Precautions Precautions/Isolations: Fall Prevention, Standard Precautions Weight Bear Status Right Lower Extremity: Right Full Weight Bearing Left Lower Extremity: Left Full Weight Bearing Referral Physician: Nani Reason for Referral: Evaluation/Treatment Medical History Pertinent Medical History: Atrial Fib, Arthritis, CAD, CVA (2014), HTN, [place], Renal Insufficiency Current History ED secondary to SOB and dysarthria Reviewed History: Yes Social History Home: Single Level Current Living Status: Alone Entry Into Home: Stairs With Railing PT Steps Into Home: 4 Prior/Core FIM Prior Level of Function Functional [place] Measure 0=Not Assessed/NA 4=Minimal Assistance 1=Total Assistance 5=Supervision or Setup 2=Maximal Assistance 6=Modified [place] 3=Moderate Assistance 7=Complete [place] Bed Mobility: 6 Transfers (B,C,W/C) (FIM): 6 Gait: 6 per patient report PT Evaluation-Current Subjective Patient agrees to PT. Pain Numeric Pain Scale: 0-No Pain Location: No Pain Reported Objective Patient Orientation: Normal For Age Problem Solving: Fair Attachments: Oxygen, IV ROM/Strength ROM Lower Extremities bilateral LE WNL Strength Lower Extremities right LE 3/5 grossly/left LE 3-/5 grossly Integumentary/Posture Integumentary refer to nursing notes Bladder Incontinence: Yes (PLOF) Posture slightly kyphotic Neuromuscular (Tone, Coordination, Reflexes) severely diminished coordination and proprioception. Noted ataxic movement with Poor balance Sensory Vision: Wears Glasses Hearing: Functional Sensation Right Lower Extremit: Intact Sensation Left Lower Extremity: Intact Transfers Functional [place] Measure 0=Not Assessed/NA 4=Minimal Assistance 1=Total Assistance 5=Supervision or Setup 2=Maximal Assistance 6=Modified [place] 3=Moderate Assistance 7=Complete [place] Transfers (B, C, W/C) (FIM): 2 Scootin Rollin Supine to/from Sit: 5 Sit to/from Stand: 2 max assist with sit to stand due to ataxia and weakness Gait Mode of Locomotion: Walk Anticipated Mode of Locomotion: Both Gait (FIM): 1 Distance (FIM): 1=up to 49 ft Distance: 30' x 2 Gait Level of Assist: 2 Gait Persons Needed: 1 Gait Assistive Device: FWW Comments/Gait Description extremely ataxic with POOR balance with gait training with FWW. Patient incontinent during session requiring dependent assist to cleanse and change clothing Balance Sitting Static: Fair Sitting Dynamic: Fair Standing Static: Poor Standing Dynamic: Poor Assessment/Needs 87 y.o. female, will benefit from skilled PT to address functional strength and mobility to improve current LOF. From a PT standpoint, patient will require extended care facility due to patient's LOF and nature of CVA. Rehab Potential: Fair PT Assisted Goals Cryptozoologist Goals PT Cryptozoologist Goals Time Frame: Mar 06, 2018 Transfers (B,C,W/C) (FIM): 4 Gait (FIM): 2 Gait distance (FIM): 1=375-15 ft Distance: 125' Gait Level of Assist: 4 Gait Assistive Device: FWW PT Plan Problem List Problem List: Activity Tolerance, Functional Strength, Safety, Balance, Gait, Transfer Treatment/Plan Treatment Plan: Continue Plan of Care Treatment Plan: Bed Mobility, Education, Functional Activity Larry, Functional Strength, Gait, Safety, Therapeutic Exercise, Transfers Treatment Duration: Mar 06, 2018 Frequency: 6 times per week Estimated Hrs Per Day: .5 hour per day Patient and/or Family Agrees t: Yes Safety Risks/Education Patient Education: Gait Training, Safety Issues Teaching Recipient: Patient Teaching Methods: Discussion Response to Teaching: Reinforcement Needed Discharge Recommendations Therapy D/C Recommendations: [facility] Placement, [facility] (TCU/[facility]) Time/GCodes Time In: 921 Time Out: 941 Total Billed Treatment Time: 20 Total [facility] Codes Necessary: GIRISH Chairez PT Feb 23, 2018 09:56
[2018-02-23 10:16] LABS: CHOLESTEROL 97 MG/DL (< 200); HDL CHOLESTEROL 27 MG/DL (40-60); TRIGLYCERIDES 79 MG/DL (<150); VLDL CHOLESTEROL 16 MG/DL (5-40)
--- NOTE | 2018-02-23 10:59 | Diagnostic Imaging Report ---
PROCEDURE: US carotid duplex, bilateral. TECHNIQUE: Multiple real-time grayscale images were obtained over the carotid arteries in various projections, bilaterally. Additional duplex Doppler and color Doppler images were also obtained. INDICATION: CVA and atrial fibrillation. There is mild plaque identified in the proximal internal carotid arteries bilaterally. No significant velocity elevation or stenosis is seen. Both vertebral arteries demonstrate antegrade flow. Parameters based on the consensus panel Tejada-Scale and Doppler ultrasound criteria published July 2003, Radiology, Volume 229. DOPPLER (peak systolic velocity M/S Right Left CCA .42 .38 ICA Proximal .77 .45 ICA Mid .82 .6 ICA Distal .78 .56 RATIO 1.84 1.16 ECA .59 .57 VERT .25 .50 Impression: Mild bilateral carotid plaque. There is no evidence of a hemodynamically significant stenosis. Dictated by: Dictated on workstation # [id number]
--- NOTE | 2018-02-23 12:15 | Progress Note-Cardiology ---
Cardiology SOAP Progress Note Subjective: No new symptoms Continues with dysarthria No cp or palp or syncope or shortness of breath at rest Objective: I&O/Vital Signs 02/23/18 02/23/18 02/23/18 02/23/18 01:00 04:00 07:00 07:29 Temp 96.6 Pulse 98 106 91 Resp 16 B/P (MAP) 128/80 (96) Pulse Ox 94 88 O2 Delivery Nasal Cannula Nasal Cannula O2 Flow Rate 3.00 02/23/18 02/23/18 08:00 08:30 Temp 97.4 Pulse 88 Resp 18 B/P (MAP) 121/77 (92) Pulse Ox 97 O2 Delivery Nasal Cannula Nasal Cannula O2 Flow Rate 3.00 3.00 02/23/18 00:00 Intake Total 1550 ml Balance 1550 ml Weight (Pounds): 95 Weight (Ounces): 2.0 Weight (Calculated Kilograms): [id number] Constitutional: AAO x 3, well-developed, other (thin appearing) Respiratory: No accessory muscle use; lungs clear to percussion, lungs clear to auscultation Cardiovascular: irregularly irregular, S1 and S2, systolic murmur (soft BRIGID at card base) Gastrointestional: No tender; soft; No guarding, No rebound; audible bowel sounds Extremities: No clubbing, No cyanosis, No significant edema Neurologic/Psychiatric: other (dysrthria; move all limbs equally; alert and oriented) Skin: No rash on exposed areas, No ulcerations on exposed areas Results/Procedures: Labs Laboratory Tests 02/23/18 09:18: White Blood Count 9.0, Red Blood Count 3.56L, Hemoglobin 9.2L, Hematocrit 30L, Mean Corpuscular Volume 83, Mean Corpuscular Hemoglobin 26, Mean Corpuscular Hemoglobin Concent 31L, Red Cell Distribution Width 18.7H, Platelet Count 102L, Mean Platelet Volume , Sodium Level 137, Potassium Level 4.8, Chloride Level 106 , Carbon Dioxide Level 19L, Anion Gap 12, Blood Urea Nitrogen 22H, Creatinine 0.92, Estimat Glomerular Filtration Rate 58, BUN/Creatinine Ratio 24, Glucose Level 166H, Calcium Level 8.4L, B-Type Natriuretic Peptide 4240.6H, Triglycerides Level 79, Cholesterol Level 97, LDL Cholesterol Direct 57, VLDL Cholesterol 16, HDL Cholesterol 27L Microbiology 02/19/18 Blood Culture - Preliminary, Resulted No growth Laboratory Tests 02/21/18 21:01 02/22/18 05:25 02/23/18 09:18 A/P: Assessment: R [place] non-hemorrhagic stroke on 02/19/18 - Medical Service managing Chronic persistent A fib, first diagnosed in Oct 2013, rate currently not well controlled Chronic rivaroxaban therapy for stroke prophylaxis. Elevated INR due to chronic rivaroxaban therapy. INR is elevated in most patients on Direct Xa inhibitors ( especially rivaroxaban) and cannot be used to monitor therapy or adjust dose Metabolic acidosis is indicated on blood work of 02/22/18 Acute on chronic systolic CHF, clinically improved, but still considerable BNP elevation CAD. S/p mid RCA stent (Integrity 2.75x12) in early Oct 2013 following presentation with ac NSTEMI. The rest of the cors had diffuse mod disease with stenoses of upto 50-60%. MPI of 07/11/17 showed no ischemia of infarction and LVEF of 45% (subjectively felt to be higher) Ischemic cm. Cath of 11/08/13, prior to PCI, showed LVEF 35-40% and elev LVEDP Apparently intolerant to ANTOINE-inhibitor and ARB due to worsening of renal function. This is being managed by Dr Alvarez Echocardiogram of 01/24/17: LVEF 40%, triv MR and TR, PASP 35 mm Hg. ( essentially unchanged compaed to echo of December 2014) Carotid u/s from January 09, 2015 showed bilat plaque at the carotid bifurcation with velocities suggestive of underlying stenosis in the range of 60-79% in the right ICA, and in the left ICA 0-40%, unchanged on subsequent carotid u/s of . Carotid u/s of January 2017 showed mod bilat carotid plaque Anemia diagnosed at time of hospitalization of Oct 2013. Etiology unclear. 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 Cr 1.16 and eGFR 43 on 12/30/16 Plan: * iv furosemide today * D/c iv fluids * Monitor labs * Medical Svce to manage stroke * I discussed her CV issues with her and her daughter Clinical Quality Measures Stroke: Date of last known well: Feb 19, 2018 RONNI YEE MD FACP FACC CCDS Feb 23, 2018 12:15
[2018-02-23 12:30] VITALS: BP 125/85
[2018-02-23 16:00] VITALS: BP 111/68
--- NOTE | 2018-02-23 16:39 | Occupational Therapy Eval ---
OT Evaluation-General/PLF Medical Diagnosis Admission Date Feb 19, 2018 at 22:37 Medical Diagnosis: CVA (Chris), Pneumonia, Delirium Onset Date: Feb 19, 2018 Therapy Diagnosis Therapy Diagnosis: Weakness Height/Weight Height (Feet): 5 Height (Inches): 2.00 Weight (Pounds): 95 Weight (Ounces): 2.0 Precautions Precautions/Isolations: Fall Prevention, Standard Precautions Safety Interventions: Bed Exit Alarm Referral Physician: Nani Referral Reason: Activity Tolerance, Self Care, Evaluation/Treatment, Strengthening/ROM Medical History Pertinent Medical History: Atrial Fib, Arthritis, CAD, CVA (2015), HTN, [place], Renal Insufficiency Additional Medical History coronary stent, osteoporosis Current History Pt. is somewhat difficult to understand. Demonstrates slurred words and left sided facial droop. Reviewed History: Yes Social History Home: Single Level Current Living Status: Alone Entry Into Home: Stairs With Railing Steps Into Home: 4 ADL-Prior Level of Function ADL PLOF Comments Pt. is able to state that she was independent before this hospitalization. She lives alone in [place]. Pt. states that she still drives, cooks, cleans, and is independent with her ADLs. DME/Equipment: Bath Chair, Tub/Shower Drive Self: Yes OT Current Status Subjective No pain reported. Appearance Pt. alert. Agrees to work with therapy. Mental Status/Objective Patient Orientation: Person Current Glasses/Contacts: Yes Hand Dominance: Right Upper Extremity ROM WFL Upper Extremity Strength 3+/5 right UE strength 3/5 left ADL-Treatment Functional [place] Measure 0=Not Assessed/NA 4=Minimal Assistance 1=Total Assistance 5=Supervision or Setup 2=Maximal Assistance 6=Modified [place] 3=Moderate Assistance 7=Complete IndependenceIRFPAI Quality Coding Scale 6 Independent with activity with or without an assistive device 5 Patient requires set up or clean up by helper. Patient completes activity by themselves 4 Supervision or touching assist (CGA). [place] provide cues , steadying assist 3 The helper provides less than half the effort to complete the activity 2 The helper provides more than half the effort to complete the activity 1 Dependent. The helper does all the effort to complete an activity 7 Patient refused to complete or attempt activity 9 The patient did not perform the activity before the current illness or injury 88 Not attempted due to Medical conditions or safety concerns Lower Body Dressing (FIM): 5 Transfers (B, C, W/C) (FIM): 5 (Supine-sit, sit-stand, stand-sit and supine.) Education OT Patient Education: Correct positioning, Modified ADL techniques, Progress toward Goal/Update tx plan, Purpose of tx/functional activities, Reviewed precautions, Rehab process, Transfer techniques Teaching Recipient: Patient Teaching Methods: Demonstration, Discussion Response to Teaching: Verbalize Understanding, Return Demonstration OT Short Term Goals Short Term Goals 1=Demonstrate adherence to instructed precautions during ADL tasks. 2=Patient will verbalize/demonstrate understanding of assistive devices/ modifications for ADL. 3=Patient will improve strength/tolerance for activity to enable patient to perform ADL's. OT Patient Support Assistant Goals Group Home Goals Time Frame: Mar 09, 2018 Eating (FIM): 6 Grooming(FIM): 6 Bathing(FIM): 5 Upper Body Dressing(FIM): 6 Lower Body Dressing(FIM): 6 Toileting(FIM): 6 Transfers (B,C,W/C) (FIM): 6 Toilet/Commode Transfer(FIM): 6 Shower Transfer(FIM): 5 Additional Goals: 1-Demonstrate ADL Tasks, 2-Verbalize Understanding, 3- ImproveStrength/Larry 1=Demonstrate adherence to instructed precautions during ADL tasks. 2=Patient will verbalize/demonstrate understanding of assistive devices/ modifications for ADL. 3=Patient will improve strength/tolerance for activity to enable patient to perform ADL's. OT Education/Plan Problem List/Assessment Assessment: Decreased Activ Tolerance, Impaired I ADL's, Impaired Self-Care Skills Discharge Recommendations Plan/Recommendations: Continue POC Therapy D/C Recommendations: Home w/ Family Support, Occupational Therapy Home Care Patient/Family Goals To return home. Treatment Plan/Plan of Care Treatment,Training & Education: Yes Patient would benefit from OT for education, treatment and training to promote independence in ADL's, mobility, safety and/or upper extremity function for ADL' s. Plan of Care: ADL Retraining, Functional Mobility Treatment Duration: Mar 09, 2018 Frequency: 5 times per week Estimated Hrs Per Day: .25 hour per day Agreement: Yes Rehab Potential: Fair Time/GCodes Start Time: 11:00 Stop Time: 11:15 Total Time Billed (hr/min): 15 Billed Treatment Time 1, FAM REYNOLDS OT Feb 23, 2018 16:39
[2018-02-23] MEDS: RIVAROXABAN 15 MG TABLET (XARELTO) PO SCH (17:48)
[2018-02-23 20:00] VITALS: BP 108/69
[2018-02-23] MEDS: ATORVASTATIN 10 MG (LIPITOR) TABLET PO SCH (20:30)
[2018-02-24] VITALS (7 sets, daily range): BP systolic 100–125; BP diastolic 65–82
[2018-02-24] MEDS: PIPERACILLIN/TAZOBACTAM 3.375 GM in D5W 100 ML IVPB 100 ML IV SCH ×3 (04:25→21:16)
[2018-02-24] MEDS: PANTOPRAZOLE 20 MG TABLET (PROTONIX) PO SCH (04:25)
[2018-02-24] MEDS: CATHETER FLUSH 10 ML SYR IV SCH ×3 (04:25→21:17)
[2018-02-24 07:02] LABS: HEMATOCRIT 28 % (35-52); HEMOGLOBIN 9.1 G/DL (11.5-16.0); MEAN CORPUSCULAR HEMOGLOBIN 27 PG (25-34); MEAN CORPUSCULAR HGB CONC 32 G/DL (32-36); MEAN CORPUSCULAR VOLUME 82 FL (80-99); PLATELET COUNT 98 10^3/uL (130-400); RED BLOOD COUNT 3.44 10^6/uL (4.35-5.85); RED CELL DISTRIBUTION WIDTH 18.5 % (10.0-14.5); WHITE BLOOD COUNT 9.6 10^3/uL (4.3-11.0)
--- NOTE | 2018-02-24 07:31 | Pulmonary Progress Note ---
Subjective Time Seen by Provider: 07:30 Subjective/Events-last exam appears to be doing better. Will repeat CXR. Exam Exam Vital Signs Date Time Temp Pulse Resp B/P (MAP) Pulse Ox O2 Delivery O2 Flow Rate FiO2 02/24/18 04:57 97.8 79 17 123/74 (90) 98 Room Air 02/24/18 01:00 81 02/24/18 00:05 98.1 77 17 125/82 (96) 98 Room Air 02/23/18 20:00 98.6 81 20 108/69 (82) 95 Room Air 02/23/18 20:00 Nasal Cannula 3.00 02/23/18 19:18 98 Nasal Cannula 4.00 02/23/18 19:00 91 02/23/18 16:00 97.9 73 20 111/68 (82) 99 Room Air 02/23/18 13:00 89 02/23/18 12:30 97.3 89 26 125/85 (98) 97 Room Air 02/23/18 08:30 97.4 88 18 121/77 (92) 97 Nasal Cannula 3.00 02/23/18 08:00 Nasal Cannula 3.00 02/23/18 07:29 88 Nasal Cannula I & O 02/24/18 07:00 Intake Total 1540 ml Output Total 1870 ml Balance -330 ml General Appearance: No Apparent Distress, Thin HEENT: Normal ENT Inspection, Other (CVA affecting speech) Neck: Full Range of Motion, Normal Inspection Respiratory: No Accessory Muscle Use, No Respiratory Distress, Other (Loose congestion when he coughs) Cardiovascular: Irregularly Irregular Capillary Refill: Less Than 3 Seconds Gastrointestinal: non tender, soft, other (And move all extremities) Extremity: Normal Capillary Refill, Normal Inspection Neurologic/Psychiatric: Alert, No Motor/Sensory Deficits, Normal Mood/Affect, Other (subtle poor recall, dysarthria) Skin: Normal Color, Warm/Dry Lymphatic: No Adenopathy Results Lab Laboratory Tests 02/23/18 09:18 02/24/18 05:50 Assessment/Plan Assessment/Plan CVA /R [place] non-hemorrhagic stroke on 02/19/18 Worsening metabolic acidosis with hyperkalemia - Bicarb gtt -Labs for this AM are pending -Afebrile -repeat CXR CHF EF is 35-40% SOB with pulmonary edema with hypoxia -monitor close -repeat CXR possible JOANNE -will schedule out patient sleep study at f/u appt with me. Persistent AFIB -On Xarelto 232 SHAHBAZ NOLAN DO Feb 24, 2018 07:31
[2018-02-24] MEDS: RT-ALBUTEROL SULF 2.5 MG/3 ML PRE-MIX VIAL INH SCH ×2 (07:33→19:11)
[2018-02-24 07:50] LABS: CALCIUM 8.4 MG/DL (8.5-10.1); CREATININE SERUM 0.89 MG/DL (0.60-1.30); POTASSIUM 3.8 MMOL/L (3.6-5.0)
--- NOTE | 2018-02-24 08:04 | Progress Note (SOAP) ---
Subjective Time Seen by Provider: 08:00 Subjective/Events-last exam Patient doing better today. CVA. Dysarthria. Patient knows what to +2 equals. Patient can pronounce her name. Patient work in progress. BNP 4000. Atrial fibrillation area CAD Objective Exam Vital Signs Date Time Temp Pulse Resp B/P (MAP) Pulse Ox O2 Delivery O2 Flow Rate FiO2 02/24/18 07:35 93 Nasal Cannula 4.00 02/24/18 04:57 97.8 79 17 123/74 (90) 98 Room Air 02/24/18 01:00 81 02/24/18 00:05 98.1 77 17 125/82 (96) 98 Room Air 02/23/18 20:00 98.6 81 20 108/69 (82) 95 Room Air 02/23/18 20:00 Nasal Cannula 3.00 02/23/18 19:18 98 Nasal Cannula 4.00 02/23/18 19:00 91 02/23/18 16:00 97.9 73 20 111/68 (82) 99 Room Air 02/23/18 13:00 89 02/23/18 12:30 97.3 89 26 125/85 (98) 97 Room Air 02/23/18 08:30 97.4 88 18 121/77 (92) 97 Nasal Cannula 3.00 I & O 02/24/18 07:00 Intake Total 1540 ml Output Total 1870 ml Balance -330 ml Capillary Refill : Less Than 3 Seconds General Appearance: No Apparent Distress, Thin HEENT: Normal ENT Inspection Neck: Full Range of Motion, Normal Inspection Respiratory: No Accessory Muscle Use, No Respiratory Distress Cardiovascular: Irregularly Irregular Gastrointestinal: non tender, soft Results Lab Laboratory Tests 02/23/18 09:18: White Blood Count 9.0, Red Blood Count 3.56L, Hemoglobin 9.2L, Hematocrit 30L, Mean Corpuscular Volume 83, Mean Corpuscular Hemoglobin 26, Mean Corpuscular Hemoglobin Concent 31L, Red Cell Distribution Width 18.7H, Platelet Count 102L, Mean Platelet Volume , Sodium Level 137, Potassium Level 4.8, Chloride Level 106 , Carbon Dioxide Level 19L, Anion Gap 12, Blood Urea Nitrogen 22H, Creatinine 0.92, Estimat Glomerular Filtration Rate 58, BUN/Creatinine Ratio 24, Glucose Level 166H, Calcium Level 8.4L, B-Type Natriuretic Peptide 4240.6H, Triglycerides Level 79, Cholesterol Level 97, LDL Cholesterol Direct 57, VLDL Cholesterol 16, HDL Cholesterol 27L 02/24/18 05:50: White Blood Count 9.6, Red Blood Count 3.44L, Hemoglobin 9.1L, Hematocrit 28L, Mean Corpuscular Volume 82, Mean Corpuscular Hemoglobin 27, Mean Corpuscular Hemoglobin Concent 32, Red Cell Distribution Width 18.5H, Platelet Count 98L, Mean Platelet Volume , Sodium Level 137, Potassium Level 3.8, Chloride Level 104 , Carbon Dioxide Level 21, Anion Gap 12, Blood Urea Nitrogen 24H, Creatinine 0.89, Estimat Glomerular Filtration Rate 60, BUN/Creatinine Ratio 27, Glucose Level 96, Calcium Level 8.4L Microbiology 02/19/18 Blood Culture - Preliminary, Resulted No growth Assessment/Plan Assessment/Plan Assess & Plan/Chief Complaint CVA. A. fib. CHF. Dysarthria. Coronary artery disease. Chest x-ray looks worse the other day. . 02/24/18. Acute CVA. A. fib. CHF. Dysarthria. Chest x-ray ordered this morning very Coronary artery disease. Speech is improving. niece Is not here this morning Clinical Quality Measures Admission Status Admission Dx CVA. Pulmonary edema. Pneumonia. Short of breath. Mumbled speech. Atrial fibrillation. Cataracts DVT/VTE Risk/Contraindication: Risk Factor Score Per Nursin RFS Level Per Nursing on Admit: 4+=Very High Contraindications-Pharm: Other *list below* Stroke: Date of last known well: Feb 19, 2018 ARGENIS JERRY DO Feb 24, 2018 08:04
[2018-02-24] MEDS ORDERED: FUROSEMIDE 40 MG/4 ML INJ (LASIX) IVP NR (08:30)
--- NOTE | 2018-02-24 09:23 | Speech Therapy Daily Note ---
Speech Daily Progress Note Subjective Date Seen by Provider: Feb 24, 2018 Time Seen by Provider: 08:30 The patient was seated upright in bed upon entrance. The patient's niece was present at bedside. The patient greeted the clinician appropriately and was agreeable to participation in the speech treatment session. Objective Oral Motor Exercises: Oral motor exercises were initiated on this date for improved strength and range of motion of articulators (lips and tongue). The patient displayed fair accuracy with exercises and completed five repetitions of each with maximum clinician cueing. To note, the patient appears to fatigue extremely quickly through limited exercises. The patient closes her eyes and requires intermittent breaks through ten minutes of exercise. Assessment Assessment Current Status: Fair Progress Treatment Plan Continue Plan of Care Speech Short Term Goals Short Term Goals Short Term Goals 1. The patient will demonstrate 60% accuracy with repetition of single and multi -syllabic bilabial words. 2. The patient will display 75% accuracy with oral motor exercises. Time Frame-STG: Three Days Speech Correction Goals Correction Goals 1. The patient will display increased intelligibility through expressive communication. Time Frame: One Week Speech-Plan Treatment Plan Speech Therapy Treatment Plan: Continue Plan of Care Continue skilled speech pathology to target improved intelligibility. Treatment Duration: Mar 02, 2018 Frequency: 3 times per week Estimated Hrs Per Day: .5 hour per day Rehab Potential: Fair Safety Risks/Education Teaching Recipient: Patient, Family Teaching Methods: Demonstration, Handout, Discussion Response to Teaching: Verbalize Understanding Education Topics Provided: Oral Motor Exercises Discharge Recommendations Residential (TCU/NH) (Due to the patient's high level of fatigue, she continues to remain most appropriate for [facility].) Time Speech Therapy Time In: 08:30 Speech Therapy Time Out: 08:42 Total Billed Time: 12 Billed Treatment Time 1REYNA ELIZABETH ST Feb 24, 2018 09:23
[2018-02-24] MEDS: meTOproloL SUCCINATE 50 MG (TOPROL XL) TAB PO SCH (09:42)
[2018-02-24] MEDS: DOCUSATE SODIUM 100 MG (COLACE) CAP PO SCH ×2 (09:42→21:16)
[2018-02-24] MEDS: ASPIRIN 81 MG CHEW (CHILDREN'S ASA) PO SCH (09:43)
[2018-02-24] MEDS: DILTIAZEM 240 MG (CARDIZEM CD) CAP PO SCH (09:43)
[2018-02-24] MEDS: POLYETHYLENE GLYCOL 17 GM (MIRALAX) PACK PO SCH ×2 (09:45→21:17)
--- NOTE | 2018-02-24 09:51 | Diagnostic Imaging Report ---
INDICATION: Pneumonia. COMPARISON: 02/23/2018. FINDINGS: Frontal and lateral views of the chest demonstrate cardiac enlargement with persistent but decreased central vascular congestion. Persistent but decreasing bilateral pleural effusions with dependent atelectasis are present. Underlying infiltrates are likely. There is no pneumothorax. The osseous structures are stable. IMPRESSION: Improved aeration of the lungs as described. Dictated by: Dictated on workstation # [id number]
--- NOTE | 2018-02-24 11:41 | Occupational Ther Daily Note ---
OT Current Status-Daily Note Subjective Pt dozing in recliner, woke to name. Pt agrees to therapy by head and hand gestures. Mental Status/Objective Patient Orientation: Person Functional [place] Measure 0=Not Assessed/NA 4=Minimal Assistance 1=Total Assistance 5=Supervision or Setup 2=Maximal Assistance 6=Modified [place] 3=Moderate Assistance 7=Complete [place] ADL-Treatment Grooming (FIM): 4 (After giving supplies to pt is able to complete oral care by self. Assist to brush only back of head.) Other Treatment Pt was able to complete UE exercises against gravity 1 set 10 reps. Modified chair pushups, pushing with one arm at a time, completed 10x's. Pt use LE's and arms to scoot self back in chair with leg rest elevated. Pt followed directions appropriately. Nrsg in room to check on pt during therapy. Pt had difficulty with rinsing mouth, unable to control liquid in mouth and coughed after spitting out. Small sips from straw with chin tuck helped with liquid control. After therapy, pt sitting in recliner with call light/phone in reach. All needs met in room. OT Short Term Goals Short Term Goals 1=Demonstrate adherence to instructed precautions during ADL tasks. 2=Patient will verbalize/demonstrate understanding of assistive devices/ modifications for ADL. 3=Patient will improve strength/tolerance for activity to enable patient to perform ADL's. OT [employer] Trader Goals Correction Goals Time Frame: Mar 09, 2018 Eating (FIM): 6 Grooming(FIM): 6 Bathing(FIM): 5 Upper Body Dressing(FIM): 6 Lower Body Dressing(FIM): 6 Toileting(FIM): 6 Transfers (B,C,W/C) (FIM): 6 Toilet/Commode Transfer(FIM): 6 Shower Transfer(FIM): 5 Additional Goals: 1-Demonstrate ADL Tasks, 2-Verbalize Understanding, 3- ImproveStrength/Larry 1=Demonstrate adherence to instructed precautions during ADL tasks. 2=Patient will verbalize/demonstrate understanding of assistive devices/ modifications for ADL. 3=Patient will improve strength/tolerance for activity to enable patient to perform ADL's. OT Education/Plan Discharge Recommendations Plan/Recommendations: Continue POC Treatment Plan/Plan of Care Patient would benefit from OT for education, treatment and training to promote independence in ADL's, mobility, safety and/or upper extremity function for ADL' s. Plan of Care: ADL Retraining, Functional Mobility Treatment Duration: Mar 09, 2018 Frequency: 5 times per week Estimated Hrs Per Day: .25 hour per day Agreement: Yes Rehab Potential: Fair Time/GCodes Start Time: 11:15 Stop Time: 11:38 Total Time Billed (hr/min): 20 Billed Treatment Time 1 visit-ADL 1 (13 min) EX 1 (10 min) GUI MCKEON Feb 24, 2018 11:41
--- NOTE | 2018-02-24 11:43 | Physical Therapy Daily Note ---
PT Daily Note-Current Subjective Patient is in bed and agrees to PT. Pain Numeric Pain Scale: 0-No Pain Location: No Pain Reported Mental Status Patient Orientation: Non-Verbal/Aphasic (unable to understand patient on this date) Attachments: Oxygen Transfers Functional [place] Measure 0=Not Assessed/NA 4=Minimal Assistance 1=Total Assistance 5=Supervision or Setup 2=Maximal Assistance 6=Modified [place] 3=Moderate Assistance 7=Complete IndependenceIRFPAI Quality Coding Scale 6 Independent with activity with or without an assistive device 5 Patient requires set up or clean up by helper. Patient completes activity by themselves 4 Supervision or touching assist (CGA). [place] provide cues , steadying assist 3 The helper provides less than half the effort to complete the activity 2 The helper provides more than half the effort to complete the activity 1 Dependent. The helper does all the effort to complete an activity 7 Patient refused to complete or attempt activity 9 The patient did not perform the activity before the current illness or injury 88 Not attempted due to Medical conditions or safety concerns Transfers (B, C, W/C) (FIM): 2 Scootin Supine to/from Sit: 4 Sit to/from Stand: 2 Bed to/from Chair: 2 Patient continues to demonstrate severe ataxia with sit to stand and standing mobility Weight Bearing Right Lower Extremity: Right Full Weight Bearing Left Lower Extremity: Left Full Weight Bearing Gait Training Gait (FIM): 2 Distance (FIM): 3=150 ft Distance: 150' Gait Level of Assist: 2 Gait Persons Needed: 2 Gait Assistive Device: FWW scissor gait with lean to left requiring max assist by PT for patient to remain upright. Patient demonstrates POOR dynamic balance and is impulsive to let go of FWW. Exercises Supine Ex: Ankle pumps, Quad Set, Heel Slides, Straight leg raise Supine Reps: 10 Seated Therapy Exercises: Long arc quads Seated Reps: 15 Assessment Patient is able to perform supine and seated exercises, however, demonstrates POOR balance and inability to remain upright in stand without max assist by PT. Patient is currently up in recliner with needs met. Chair alarm activated and reeducation with patient on button to push for assistance. PT Care Home Goals Care Home Goals PT Care Home Goals Time Frame: Mar 06, 2018 Transfers (B,C,W/C) (FIM): 4 Gait (FIM): 2 Gait distance (FIM): 0=311-78 ft Distance: 125' Gait Level of Assist: 4 Gait Assistive Device: FWW PT Plan Treatment/Plan Treatment Plan: Continue Plan of Care Treatment Plan: Bed Mobility, Education, Functional Activity Larry, Functional Strength, Gait, Safety, Therapeutic Exercise, Transfers Treatment Duration: Mar 06, 2018 Frequency: 6 times per week Estimated Hrs Per Day: .5 hour per day Patient and/or Family Agrees t: Yes Discharge Recommendations Therapy D/C Recommendations: Intermediate Placement, Senior Living (TCU/NH) Time/GCodes Time In: 1035 Time Out: 1058 Total Billed Treatment Time: 23 Total Billed Treatment 1 visit EX 8 min GT 15 min GIRISH MONTES DE OCA PT Feb 24, 2018 11:43
--- NOTE | 2018-02-24 12:04 | Progress Note-Cardiology ---
Cardiology SOAP Progress Note Subjective: Sitting up in a chair at the bedside working with therapy. Nods head no when asked if having CP, palpitations or SOB. Objective: I&O/Vital Signs 02/24/18 02/24/18 02/24/18 02/24/18 07:00 07:35 08:00 08:30 Temp 97.5 Pulse 77 82 Resp 16 B/P (MAP) 111/74 (86) Pulse Ox 93 97 O2 Delivery Nasal Cannula Room Air Nasal Cannula O2 Flow Rate 4.00 3.00 02/24/18 02/24/18 12:00 13:00 Temp 98.3 Pulse 69 86 Resp 20 B/P (MAP) 100/68 (79) Pulse Ox 97 O2 Delivery Room Air 02/24/18 00:00 Intake Total 1290 ml Output Total 1670 ml Balance -380 ml Weight (Pounds): 97 Weight (Ounces): 2.0 Weight (Calculated Kilograms): 44.892175 Constitutional: AAO x 3, well-developed, other (thin appearing) Respiratory: No accessory muscle use; lungs clear to percussion, lungs clear to auscultation Cardiovascular: irregularly irregular, S1 and S2, systolic murmur (soft BRIGID at card base) Gastrointestional: No tender; soft; No guarding, No rebound; audible bowel sounds Extremities: No clubbing, No cyanosis, No significant edema Neurologic/Psychiatric: other (dysrthria; move all limbs equally; alert and oriented) Skin: No rash on exposed areas, No ulcerations on exposed areas Results/Procedures: Labs Laboratory Tests 02/24/18 05:50: White Blood Count 9.6, Red Blood Count 3.44L, Hemoglobin 9.1L, Hematocrit 28L, Mean Corpuscular Volume 82, Mean Corpuscular Hemoglobin 27, Mean Corpuscular Hemoglobin Concent 32, Red Cell Distribution Width 18.5H, Platelet Count 98L, Mean Platelet Volume , Sodium Level 137, Potassium Level 3.8, Chloride Level 104 , Carbon Dioxide Level 21, Anion Gap 12, Blood Urea Nitrogen 24H, Creatinine 0.89, Estimat Glomerular Filtration Rate 60, BUN/Creatinine Ratio 27, Glucose Level 96, Calcium Level 8.4L, Magnesium Level 1.9 Microbiology 02/19/18 Blood Culture - Preliminary, Resulted No growth Laboratory Tests 02/23/18 09:18 02/24/18 05:50 A/P: Assessment: R [place] non-hemorrhagic stroke on 02/19/18 - Medical Service managing Chronic persistent A fib, first diagnosed in Oct 2013, rate currently not well controlled Chronic rivaroxaban therapy for stroke prophylaxis. Elevated INR due to chronic rivaroxaban therapy. INR is elevated in most patients on Direct Xa inhibitors ( especially rivaroxaban) and cannot be used to monitor therapy or adjust dose Metabolic acidosis is indicated on blood work of 02/22/18 Acute on chronic systolic CHF, clinically improved, but still considerable BNP elevation CAD. S/p mid RCA stent (Integrity 2.75x12) in early Oct 2013 following presentation with ac NSTEMI. The rest of the cors had diffuse mod disease with stenoses of upto 50-60%. MPI of 07/11/17 showed no ischemia of infarction and LVEF of 45% (subjectively felt to be higher) Ischemic cm. Cath of 11/08/13, prior to PCI, showed LVEF 35-40% and elev LVEDP Apparently intolerant to ANTOINE-inhibitor and ARB due to worsening of renal function. This is being managed by Dr Alvarez Echocardiogram of 01/24/17: LVEF 40%, triv MR and TR, PASP 35 mm Hg. ( essentially unchanged compaed to echo of December 2014) Carotid u/s from January 09, 2015 showed bilat plaque at the carotid bifurcation with velocities suggestive of underlying stenosis in the range of 60-79% in the right ICA, and in the left ICA 0-40%, unchanged on subsequent carotid u/s of . Carotid u/s of January 2017 showed mod bilat carotid plaque Anemia diagnosed at time of hospitalization of Oct 2013. Etiology unclear. 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 Cr 1.16 and eGFR 43 on 12/30/16 Plan: * IV lasix given today * Monitor labs * Medical Svce to manage stroke * Dr. Aguillon has discussed her CV issues with her and her daughter Physician Assessment Physician Assessment No cp or palp or syncope or shortness of breath Lungs: decreased air entry at the bases Cor: irreg Ext: no c/c/e A&R * As documented in our note above that I updated (italics) and as noted below * Monitor labs * Dr Blake covering card svce beginning tomorrow until 03/02/18. Please call as needed Clinical Quality Measures Stroke: Date of last known well: Feb 19, 2018 RYLAN CHO Feb 24, 2018 12:04 RONNI AGUILLON MD FACP FAC CCDS Feb 24, 2018 17:22
[2018-02-24] MEDS: RIVAROXABAN 15 MG TABLET (XARELTO) PO SCH (17:33)
[2018-02-24] MEDS: RT-ALBUTEROL SULF 2.5 MG/3 ML PRE-MIX VIAL INH PRN (20:52)
[2018-02-24] MEDS: ATORVASTATIN 10 MG (LIPITOR) TABLET PO SCH (21:16)
[2018-02-24] MEDS ORDERED: KCL 20 MEQ TAB (K-DUR) PO ONE ×2 (22:15→22:34)
[2018-02-24] MEDS ORDERED: FUROSEMIDE 40 MG/4 ML INJ (LASIX) IVP ONE (22:15)
[2018-02-24] MEDS ORDERED: PANTOPRAZOLE 40 MG/10 ML (PROTONIX) VIAL IV ONE (22:15)
[2018-02-24] MEDS ORDERED: ALPRAZolam 0.25 MG (XANAX) TAB PO PRN (22:30)
[2018-02-24] MEDS ORDERED: PANTOPRAZOLE 40 MG/10 ML (PROTONIX) VIAL ONE (22:32)
[2018-02-24] MEDS ORDERED: FUROSEMIDE 40 MG/4 ML INJ (LASIX) ONE (22:32)
[2018-02-24] MEDS ORDERED: NITROGLYCERIN 2% OINT 1 GM UNIT DOSE PACKET ONE (22:33)
[2018-02-24] MEDS ORDERED: ALPRAZolam 0.25 MG (XANAX) TAB ONE (22:33)
[2018-02-24] MEDS: NITROGLYCERIN 2% OINT 1 GM UNIT DOSE PACKET TOP SCH (22:40)
[2018-02-24 23:14] LABS: BUN/CREATININE RATIO 31; CALCIUM 8.6 MG/DL (8.5-10.1); CARBON DIOXIDE 24 MMOL/L (21-32); CHLORIDE 101 MMOL/L (98-107); CREATININE SERUM 1.12 MG/DL (0.60-1.30); GFR ESTIMATED 46; GLUCOSE 114 MG/DL (70-105); POTASSIUM 3.9 MMOL/L (3.6-5.0); SODIUM 137 MMOL/L (135-145)
[2018-02-25] VITALS (8 sets, daily range): BP systolic 106–121; BP diastolic 58–80
[2018-02-25] MEDS: PIPERACILLIN/TAZOBACTAM 3.375 GM in D5W 100 ML IVPB 100 ML IV SCH (05:04)
[2018-02-25 05:55] LABS: HEMATOCRIT 29 % (35-52); HEMOGLOBIN 9.1 G/DL (11.5-16.0); MEAN CORPUSCULAR HEMOGLOBIN 26 PG (25-34); MEAN CORPUSCULAR HGB CONC 32 G/DL (32-36); MEAN CORPUSCULAR VOLUME 82 FL (80-99); PLATELET COUNT 110 10^3/uL (130-400); RED BLOOD COUNT 3.47 10^6/uL (4.35-5.85); RED CELL DISTRIBUTION WIDTH 18.6 % (10.0-14.5); WHITE BLOOD COUNT 10.5 10^3/uL (4.3-11.0)
[2018-02-25 06:15] LABS: CALCIUM 8.2 MG/DL (8.5-10.1); CREATININE SERUM 1.03 MG/DL (0.60-1.30); POTASSIUM 3.5 MMOL/L (3.6-5.0)
[2018-02-25] MEDS: CATHETER FLUSH 10 ML SYR IV SCH ×3 (07:04→21:32)
[2018-02-25] MEDS: PANTOPRAZOLE 20 MG TABLET (PROTONIX) PO SCH (07:04)
[2018-02-25] MEDS: NITROGLYCERIN 2% OINT 1 GM UNIT DOSE PACKET TOP SCH ×3 (07:04→21:35)
[2018-02-25] MEDS: RT-ALBUTEROL SULF 2.5 MG/3 ML PRE-MIX VIAL INH SCH ×2 (07:34→18:49)
--- NOTE | 2018-02-25 08:25 | Progress Note (SOAP) ---
Subjective Time Seen by Provider: 08:20 Subjective/Events-last exam Patient had a rough night last night. Patient short of breath last night. Today patient is tired. Patient was 40 a half pounds. Platelet count 110,000. BNP on the 2200 better than 4000. GFR in the 50s Objective Exam Vital Signs Date Time Temp Pulse Resp B/P (MAP) Pulse Ox O2 Delivery O2 Flow Rate FiO2 02/25/18 07:34 99 Nasal Cannula 3.00 02/25/18 07:05 75 114/67 (83) 02/25/18 05:00 97.8 78 16 114/66 (82) 95 Nasal Cannula 1.00 02/25/18 01:00 74 02/25/18 00:00 97.4 73 19 116/80 (92) 99 Nasal Cannula 1.00 02/24/18 21:50 95 Nasal Cannula 2.00 02/24/18 21:41 71 98 28 02/24/18 20:52 98 Nasal Cannula 2.00 02/24/18 20:00 Nasal Cannula 3.00 02/24/18 20:00 97.5 78 20 100/65 (77) 97 Room Air 02/24/18 19:11 98 Nasal Cannula 4.00 02/24/18 19:00 70 02/24/18 16:00 98.1 73 20 104/66 (79) 100 Room Air 02/24/18 13:00 86 02/24/18 12:00 98.3 69 20 100/68 (79) 97 Room Air 02/24/18 08:30 Nasal Cannula 3.00 I & O 02/25/18 07:00 Intake Total 1377 ml Output Total 1200 ml Balance 177 ml Capillary Refill : Less Than 3 Seconds General Appearance: No Apparent Distress, Thin HEENT: Normal ENT Inspection Neck: Full Range of Motion, Normal Inspection Respiratory: Chest Non Tender, No Accessory Muscle Use, No Respiratory Distress Cardiovascular: Irregularly Irregular Gastrointestinal: non tender, soft Results Lab Laboratory Tests 02/24/18 22:40 02/25/18 05:28 Laboratory Tests 02/24/18 22:40: Sodium Level 137, Potassium Level 3.9, Chloride Level 101, Carbon Dioxide Level 24, Anion Gap 12, Blood Urea Nitrogen 35H, Creatinine 1.12, Estimat Glomerular Filtration Rate 46, BUN/Creatinine Ratio 31, Glucose Level 114H, Calcium Level 8.6, Troponin I < 0.30 02/25/18 05:28: Sodium Level 138, Potassium Level 3.5L, Chloride Level 100, Carbon Dioxide Level 26, Anion Gap 12, Blood Urea Nitrogen 32H, Creatinine 1.03, Estimat Glomerular Filtration Rate 51, BUN/Creatinine Ratio 31, Glucose Level 103, Calcium Level 8.2L, White Blood Count 10.5, Red Blood Count 3.47L, Hemoglobin 9.1L, Hematocrit 29L, Mean Corpuscular Volume 82, Mean Corpuscular Hemoglobin 26 , Mean Corpuscular Hemoglobin Concent 32, Red Cell Distribution Width 18.6H, Platelet Count 110L, Mean Platelet Volume , B-Type Natriuretic Peptide 2174.3H Microbiology 02/19/18 Blood Culture - Preliminary, Resulted No growth Assessment/Plan Assessment/Plan Assess & Plan/Chief Complaint CVA. A. fib. CHF. Dysarthria. Coronary artery disease. Chest x-ray looks worse the other day. . 02/24/18. Acute CVA. A. fib. CHF. Dysarthria. Chest x-ray ordered this morning very Coronary artery disease. Speech is improving. niece Is not here this morning. . 02/25/18. Acute CVA. A. fib. CHF. Dysarthria. Coronary artery disease. Patient weak this a.m. BNP coming down. Clinical Quality Measures Admission Status Admission Dx CVA. Pulmonary edema. Pneumonia. Short of breath. Mumbled speech. Atrial fibrillation. Cataracts DVT/VTE Risk/Contraindication: Risk Factor Score Per Nursin RFS Level Per Nursing on Admit: 4+=Very High Contraindications-Pharm: Other *list below* Stroke: Date of last known well: Feb 19, 2018 ARGENIS JERRY DO Feb 25, 2018 08:25
--- NOTE | 2018-02-25 08:41 | Diagnostic Imaging Report ---
INDICATION: Shortness of air. Exam is timed 10:35 PM and compared with study performed earlier this same date. FINDINGS: The heart is enlarged. There is central vascular congestion. There is increased perihilar edema with bilateral pleural effusions not substantially changed. Lower lobe atelectasis is probably decreased. No pneumothorax. IMPRESSION: Mixed changes, improvements in lower lobe atelectasis, however findings suggest worsened failure pattern with increased heart size, vascular distention and perihilar edema. Dictated by: Dictated on workstation # [id number]
[2018-02-25] MEDS ORDERED: FUROSEMIDE 40 MG/4 ML INJ (LASIX) IVP NR (08:43)
--- NOTE | 2018-02-25 09:14 | Speech Therapy Progress Note ---
Therapy Progress Note Speech pathology attempted speech treatment on this date. Upon arrival, the patient was sleeping in bed. With maximum verbal prompting, including verbal and gentle tactile cues, the patient would promptly re-close eyes and mumble to the clinician. Following a chart review, it appears the patient was up several times through the night with breathing difficulty. The patient politely requested to continue resting. The clinician will reattempt treatment session at a more appropriate time when the patient is able to more fully participate and displays improved alertness. DARWIN MULLEN Feb 25, 2018 09:14
--- NOTE | 2018-02-25 09:36 | Diagnostic Imaging Report ---
INDICATION: Pneumonia. TECHNIQUE: Single view chest at 3:50 AM. CORRELATION STUDY: 02/24/2018. FINDINGS: The heart size remains enlarged; however, the severity of vascular congestion and perihilar edema has adversely changed. Bilateral pleural effusions with scattered areas of infiltrate versus edema about the mid and lower lung chapin also appear somewhat progressed. Irregular parenchymal density in the right lung apex is persisting as well. IMPRESSION: 1. Overall generally adverse change about the appearance of the chest with what appears to be worsening features of fluid overload or failure. Superimposed areas of edema versus infiltrate/pneumonia of the mid and lower lung chapin along with bilateral pleural effusions also appear increased. 2. Density at the right lung apex could reflect an additional area of infiltrate. Mass lesion would be difficult to exclude at this time. Dictated by: Dictated on workstation # [id number]
--- NOTE | 2018-02-25 10:15 | Physical Therapy Progress Note ---
Therapy Progress Note FRUIT HARVESTER MACHINE OPERATOR attempted tx at approx. 940 and pt is asleep and requests to remaining sleeping right now. Per overnight note & Nurse, pt did not sleep well and is resting now. FRUIT HARVESTER MACHINE OPERATOR will check back on pt later for tx. 1 visit, no tx rendered LETICIA PRITCHARD PTA Feb 25, 2018 10:15
[2018-02-25] MEDS: POLYETHYLENE GLYCOL 17 GM (MIRALAX) PACK PO SCH ×2 (10:33→21:32)
[2018-02-25] MEDS: ASPIRIN 81 MG CHEW (CHILDREN'S ASA) PO SCH (10:50)
[2018-02-25] MEDS: meTOproloL SUCCINATE 50 MG (TOPROL XL) TAB PO SCH (10:50)
[2018-02-25] MEDS: DILTIAZEM 240 MG (CARDIZEM CD) CAP PO SCH (10:51)
[2018-02-25] MEDS: CEFEPIME 2 GM/NS 50 ML IVPB IV SCH ×2 (10:51)
[2018-02-25] MEDS: DOCUSATE SODIUM 100 MG (COLACE) CAP PO SCH ×2 (10:51→21:32)
--- NOTE | 2018-02-25 10:56 | Occ Therapy Progress Note ---
Therapy Progress Note Attempted to see pt at 0910. Difficulty waking pt. Pt would open eyes then close them and fall back to sleep. HALL to check on pt later today. GUI MCKEON Feb 25, 2018 10:56
--- NOTE | 2018-02-25 11:36 | ST Dysphagia Evaluation ---
Speech Evaluation-General Medical Diagnosis CVA ([place]), Pneumonia, Delirium Onset Date: Feb 19, 2018 Therapy Diagnosis Therapy Diagnosis: Moderate Oropharyngeal Dysphagia Precautions Precautions: Aspiration Precautions/Isolations: Fall Prevention, Standard Precautions Referral Referring Physician: Dr. Yulia Cardoza Reason for Referral: Evaluation/Treatment Clinical Bedside Swallowing Evaluation Medical History Pertinent Medical History: Atrial Fib, Arthritis, CAD, CVA (2014), HTN, VT, Renal Insufficiency Current History The patient was recently admitted to [facility] following a CVA ([place]) . Reviewed History: Yes Social History Current Living Status: Alone Speech PLF/Current-Dysphagia Subjective At the request of the patient's RN (Mandie), the speech pathologist will re- evaluate the patient's swallowing function. The speech pathologist evaluated the patient's swallowing function on 02/23/2018 which revealed reduced coordination, however, absent signs/symptoms of aspiration with thin liquids and regular solids (with the exception of straw use). Per patient's RN, the patient displayed extreme difficulty taking morning medication in puree and displayed overt signs/symptoms of aspiration. The patient's chart was reviewed, which does reveal worsening function of the patient's chest, as well as, increased shortness of breath and reduced alertness. As CHF is known to correlate with dysphagia, the patient's swallowing function could be declining due to her reduced respiratory effort and declining lung function. Due to the chart review and the RN's request, speech pathology will complete a re-evaluation of the patient's swallowing function. Upon arrival, the patient was reclined in bed. The patient was positioned to 90 degrees upright in bed prior to the onset of the evaluation. The patient was agreeable to the assessment. Cognitive Status Patient Orientation: Person, Place, Time, Situation Oral Motor Skills Dentition: Natural Current Food Consistancy: Regular, Thin Liquids Ability to Follow Directions: Good Oral Expression Ability: Moderate Impairment Voice Voice Phonatory-Based Quality: Normal Voice Pitch: Normal Voice Loudness: Normal Face Facial Symmetry: Asymmetrical (Reduced right facial retraction remained present.) Oral-Facial Assessment Oral-Facial Dentition: Normal Labial Seal Description: Reduced ROM (Right.) Smile: Reduced ROM Puff Cheeks: Reduced Strength (Right>Left (however, reduced bilaterally)) Lingual Protrusion: Abnormal (Slight right sided deviation upon protrusion.) Lingual ROM: Abnormal (Decreased right sided range of motion.) Pharynx Velopharyngeal Move.: Normal Volitional Dry Swallow: Yes Voluntary Cough: Yes Can Clear Throat Volitionally: Yes Productive Cough: Yes (To note, the patient displays a rigorous cough at baseline.) Productive Throat Clear: Yes Dysphagia Evaluation Consistencies Presented: Thin Liquid, Rico Thick Liquid, Honey Thick Liquid, Pureed Oral Phase: Anterior Spillage (Right side (minimal)- liquid consistencies.), Reduced Oral Transit The patient continues to demonstrate a poorly coordinated oral phase, displaying tongue pumping behaviors intermittently. Pharyngeal Phase: Multiple Swallow Attempts, Reduced Laryngeal Elevation Funct. Velo/Pharyngeal Symptom: Cough After Swallow - Thin Liquid (teaspoon): An immediate, rigorous cough was demonstrated following two of two teaspoons of thin liquid. - Rico-Thick Liquid (teaspoon, cup sip), Honey-Thick Liquid (teaspoon, cup sip ), Puree: No signs/symptoms of aspiration were demonstrated with multiple boluses (ten teaspoons, five cup sips- total of 4 ounces each) of nectar-thick liquid or honey-thick liquid, as well as, three ounces of puree (chocolate pudding). To note, the patient appears more fatigued throughout bolus trials. Due to increased fatigue, the speech pathologist recommends avoiding solid consistencies to ease the patient's "workload" throughout meals while masticating items. Dietary Recommendations: Pureed Liquid Recommendations: Rico Consistancy - Small, more frequent meals (PO intake appears to fatigue the patient at this time. More frequent, smaller meals would allow the patient to consume calories while avoiding exercise). - Crush medication and place in puree (please avoid applesauce per patient request). - Monitor for signs/symptoms of aspiration throughout meals. Please contact speech pathology if observed. Swallowing Precautions: Decreased Bolus 1/4 Tsp, Decreased Rate of Oral Intake , Liquids from Cup, No Straw, Oral Supervision Staff, Oral Supervision Caregiver , Small Bites and Sips, Sitting 90 Degrees 30 Post Intake Dysphagia Evaluation Summary The patient displays moderate oropharyngeal dysphagia which has demonstrated worsening characteristics of aspiration throughout her stay. The patient's dysphagia is characterized by poor lingual and labial range of motion and strength, reduced laryngeal elevation, and poor airway protection in the presence of bolus material. The clinician believes the patient's worsening CHF may correlate to her worsening dysphagia as the swallowing mechanism is directly impacted by respiratory function. Barriers to Learning Poor Respiratory Function Speech Short Term Goals Short Term Goals Short Term Goals 1. The patient will demonstrate 60% accuracy with repetition of single and multi -syllabic bilabial words. 2. The patient will display 75% accuracy with oral motor exercises. 3. The patient will tolerate 10/10 bolus trials with nectar-thick liquids without signs/symptoms of aspiration. Time Frame-STG: Three Days Speech House Wrecker Goals House Wrecker Goals 1. The patient will display increased intelligibility through expressive communication. 2. The patient will tolerate the least restrictive diet without signs/symptoms of aspiration. Time Frame: One Week Speech-Plan Treatment Plan Speech Therapy Treatment Plan: Continue Plan of Care Continue skilled speech pathology to target improved swallowing safety. Treatment Duration: Mar 02, 2018 Frequency: 3 times per week Estimated Hrs Per Day: .5 hour per day Rehab Potential: Fair Safety Risks/Education Teaching Recipient: Patient Teaching Methods: Discussion Response to Teaching: Verbalize Understanding Education Topics Provided: Diet Consistency Modifications, Signs/Symptoms of Aspiration, Swallowing Strategies, Correlation between the Respiratory System and Dysphagia (Discussed recommendations with RN). Discharge Recommendations Correction (TCU/NH) Time Speech Therapy Time In: 11:05 Speech Therapy Time Out: 11:30 Total Billed Time: 25 Billed Treatment Time 1 DARWIN BRITO Feb 25, 2018 11:36
--- NOTE | 2018-02-25 13:22 | Physical Therapy Daily Note ---
PT Daily Note-Current Subjective Pt laying Supine in bed upon arrival. Pt agrees to PT for Supine EX. Pain Location: No Pain Reported Mental Status Patient Orientation: Person, Situation Attachments: Oxygen Transfers Functional [place] Measure 0=Not Assessed/NA 4=Minimal Assistance 1=Total Assistance 5=Supervision or Setup 2=Maximal Assistance 6=Modified [place] 3=Moderate Assistance 7=Complete IndependenceIRFPAI Quality Coding Scale 6 Independent with activity with or without an assistive device 5 Patient requires set up or clean up by helper. Patient completes activity by themselves 4 Supervision or touching assist (CGA). [place] provide cues , steadying assist 3 The helper provides less than half the effort to complete the activity 2 The helper provides more than half the effort to complete the activity 1 Dependent. The helper does all the effort to complete an activity 7 Patient refused to complete or attempt activity 9 The patient did not perform the activity before the current illness or injury 88 Not attempted due to Medical conditions or safety concerns Weight Bearing Right Lower Extremity: Right Full Weight Bearing Left Lower Extremity: Left Full Weight Bearing Exercises Supine Ex: Ankle pumps, Quad Set, Glut sets, Heel Slides, Straight leg raise, Hip abd/add Supine Reps: 10 Treatments Pt completes Supine Ex in bed with a couple rest breaks. Pt's daughter was instructed on how pt is to complete Ex so pt can work on them throughout the day. Pt resting in bed at end of tx with all needs met, including call light next pt. Assessment Current Status: Fair Progress Pt fatigues easy. Pt's daughter reports that this is not usual for pt. PT Life Educator Goals Life Educator Goals PT Care Home Goals Time Frame: Mar 06, 2018 Transfers (B,C,W/C) (FIM): 4 Gait (FIM): 2 Gait distance (FIM): 8=282-88 ft Distance: 125' Gait Level of Assist: 4 Gait Assistive Device: FWW PT Plan Problem List Problem List: Activity Tolerance, Functional Strength, Safety, Balance, Gait, Transfer, Bed Mobility Treatment/Plan Treatment Plan: Continue Plan of Care Treatment Plan: Bed Mobility, Education, Functional Activity Larry, Functional Strength, Gait, Safety, Therapeutic Exercise, Transfers Treatment Duration: Mar 06, 2018 Frequency: 6 times per week Estimated Hrs Per Day: .5 hour per day Patient and/or Family Agrees t: Yes Safety Risks/Education Patient Education: Correct Positioning, Safety Issues Teaching Recipient: Patient, Family Teaching Methods: Discussion Response to Teaching: Verbalize Understanding Time/GCodes Time In: 1250 Time Out: 1305 Total Billed Treatment Time: 15 Total Billed Treatment 1, EX (15m) G Codes Necessary: LETICIA Romero RUG WEAVER Feb 25, 2018 13:22
--- NOTE | 2018-02-25 13:41 | Occupational Ther Daily Note ---
OT Current Status-Daily Note Subjective Pt finished up with PLASTICS TOOLING ENGINEER. Pt sitting up in bed. Pt agrees to therapy. Pt fatigues easily. Mental Status/Objective Patient Orientation: Person, Place, Time, Situation Functional [place] Measure 0=Not Assessed/NA 4=Minimal Assistance 1=Total Assistance 5=Supervision or Setup 2=Maximal Assistance 6=Modified [place] 3=Moderate Assistance 7=Complete [place] Attachments: IV, Oxygen ADL-Treatment Set up supplies for pt to complete oral care. Pt able to open toothpaste then had difficulty time squeezing toothpaste out of tube. Pt able to complete brushing teeth by self. Pt was SOA after brushing teeth. Pt declined to complete anymore therapy. After therapy, pt laying in bed with call light/ phone in reach. All needs met in room. Grooming (FIM): 5 OT Short Term Goals Short Term Goals 1=Demonstrate adherence to instructed precautions during ADL tasks. 2=Patient will verbalize/demonstrate understanding of assistive devices/ modifications for ADL. 3=Patient will improve strength/tolerance for activity to enable patient to perform ADL's. OT Half-Way Goals Half-Way Goals Time Frame: Mar 09, 2018 Eating (FIM): 6 Grooming(FIM): 6 Bathing(FIM): 5 Upper Body Dressing(FIM): 6 Lower Body Dressing(FIM): 6 Toileting(FIM): 6 Transfers (B,C,W/C) (FIM): 6 Toilet/Commode Transfer(FIM): 6 Shower Transfer(FIM): 5 Additional Goals: 1-Demonstrate ADL Tasks, 2-Verbalize Understanding, 3- ImproveStrength/Larry 1=Demonstrate adherence to instructed precautions during ADL tasks. 2=Patient will verbalize/demonstrate understanding of assistive devices/ modifications for ADL. 3=Patient will improve strength/tolerance for activity to enable patient to perform ADL's. OT Education/Plan Discharge Recommendations Plan/Recommendations: Continue POC Treatment Plan/Plan of Care Patient would benefit from OT for education, treatment and training to promote independence in ADL's, mobility, safety and/or upper extremity function for ADL' s. Plan of Care: ADL Retraining, Functional Mobility Treatment Duration: Mar 09, 2018 Frequency: 5 times per week Estimated Hrs Per Day: .25 hour per day Agreement: Yes Rehab Potential: Fair Time/GCodes Start Time: 11:35 Stop Time: 11:45 Total Time Billed (hr/min): 10 Billed Treatment Time 1 visit-ADL 1 (10 min) GUI MCKEON Feb 25, 2018 13:41
[2018-02-25] MEDS: RIVAROXABAN 15 MG TABLET (XARELTO) PO SCH (16:52)
[2018-02-25] MEDS ORDERED: ATORVASTATIN 40 MG (LIPITOR) TABLET PO SCH (21:00)
[2018-02-26 00:04] VITALS: BP 116/80
[2018-02-26 04:05] VITALS: BP 115/66
[2018-02-26 06:00] LABS: BASOPHILS % (AUTO) 0 % (0-10); EOSINOPHILS % (AUTO) 0 % (0-10); HEMATOCRIT 29 % (35-52); HEMOGLOBIN 9.3 G/DL (11.5-16.0); LYMPHOCYTES # (AUTO) 0.8 X 10^3 (1.0-4.0); LYMPHOCYTES % (AUTO) 5 % (12-44); MEAN CORPUSCULAR HEMOGLOBIN 27 PG (25-34); MEAN CORPUSCULAR HGB CONC 32 G/DL (32-36); MEAN CORPUSCULAR VOLUME 83 FL (80-99); MONOCYTES # (AUTO) 2.2 X 10^3 (0.0-1.0); MONOCYTES % (AUTO) 15 % (0-12); NEUTROPHILS # (AUTO) 11.4 X 10^3 (1.8-7.8); NEUTROPHILS % (AUTO) 79 % (42-75); PLATELET COUNT 116 10^3/uL (130-400); RED BLOOD COUNT 3.48 10^6/uL (4.35-5.85); RED CELL DISTRIBUTION WIDTH 18.4 % (10.0-14.5); WHITE BLOOD COUNT 14.4 10^3/uL (4.3-11.0)
[2018-02-26 06:13] LABS: ANISOCYTOSIS MODERATE; BAND NEUTROPHILS 0 %; BASOPHILS % (MANUAL) 0 %; ELLIPT/OVALOCYTES MARKED; EOSINOPHILS % (MANUAL) 0 %; HYPOCHROMASIA MARKED; LYMPHOCYTES % (MANUAL) 2 %; MONOCYTES % (MANUAL) 16 %; NEUTROPHILS % (MANUAL) 82 %; POIKILOCYTOSIS SLIGHT; POLYCHROMASIA SLIGHT
[2018-02-26] MEDS: PANTOPRAZOLE 20 MG TABLET (PROTONIX) PO SCH (06:25)
[2018-02-26] MEDS: NITROGLYCERIN 2% OINT 1 GM UNIT DOSE PACKET TOP SCH ×3 (06:25→22:50)
[2018-02-26] MEDS: CATHETER FLUSH 10 ML SYR IV SCH ×3 (06:25→20:26)
[2018-02-26 06:33] LABS: ALANINE AMINOTRANSFERASE 97 U/L (0-55); ALBUMIN 2.8 GM/DL (3.2-4.5); ALKALINE PHOSPHATASE 61 U/L (40-136); BILIRUBIN,TOTAL 0.9 MG/DL (0.1-1.0); BUN/CREATININE RATIO 35; CALCIUM 8.4 MG/DL (8.5-10.1); CARBON DIOXIDE 27 MMOL/L (21-32); CHLORIDE 101 MMOL/L (98-107); CREATININE SERUM 0.82 MG/DL (0.60-1.30); GFR ESTIMATED > 60; GLUCOSE 108 MG/DL (70-105); POTASSIUM 3.4 MMOL/L (3.6-5.0); SODIUM 137 MMOL/L (135-145); TOTAL PROTEIN 5.4 GM/DL (6.4-8.2)
--- NOTE | 2018-02-26 06:51 | Pulmonary Progress Note ---
Subjective Time Seen by Provider: 09:11 Subjective/Events-last exam denies worsening SOB> Exam Exam Vital Signs Date Time Temp Pulse Resp B/P (MAP) Pulse Ox O2 Delivery O2 Flow Rate FiO2 02/26/18 04:05 98.6 80 17 115/66 (82) 94 Nasal Cannula 1.00 02/26/18 01:00 95 02/26/18 00:04 97.7 87 18 116/80 (92) 92 Nasal Cannula 1.00 02/25/18 20:00 Nasal Cannula 3.00 02/25/18 20:00 99.0 64 20 106/65 (79) 100 Nasal Cannula 2.00 02/25/18 19:00 73 02/25/18 18:49 92 Nasal Cannula 2.00 02/25/18 16:00 99.6 81 18 113/70 (84) 99 Nasal Cannula 2.00 02/25/18 14:32 120/60 (80) 02/25/18 12:00 98.6 82 22 114/66 (82) 94 Nasal Cannula 2.00 02/25/18 08:40 97.7 65 16 121/58 (79) 97 Nasal Cannula 2.00 02/25/18 08:00 Nasal Cannula 3.00 02/25/18 07:34 99 Nasal Cannula 3.00 02/25/18 07:05 75 114/67 (83) 02/25/18 07:00 76 I & O 02/26/18 07:00 Intake Total 1510 ml Output Total 900 ml Balance 610 ml General Appearance: No Apparent Distress, Thin HEENT: Normal ENT Inspection Neck: Full Range of Motion, Normal Inspection Respiratory: Chest Non Tender, No Accessory Muscle Use, No Respiratory Distress Cardiovascular: Irregularly Irregular Capillary Refill: Less Than 3 Seconds Gastrointestinal: non tender, soft Extremity: Normal Capillary Refill, Normal Inspection Neurologic/Psychiatric: Alert, No Motor/Sensory Deficits, Normal Mood/Affect, Other (subtle poor recall, dysarthria) Skin: Normal Color, Warm/Dry Lymphatic: No Adenopathy Results Lab Laboratory Tests 02/24/18 22:40 02/25/18 05:28 02/26/18 05:28 Assessment/Plan Assessment/Plan CVA /R [place] non-hemorrhagic stroke on 02/19/18 Dysphagia -speech therapy is following -Pt is on dysphagia diet -Aspiration precautions leukocytosis r/o aspiration pneumonia -check stafford cultures and repeat CBC -Advance Abx if repeat WBC still elevated. metabolic acidosis-- improved CHF EF is 35-40% SOB with pulmonary edema with hypoxia -monitor close -repeat CXR possible JOANNE -will schedule out patient sleep study at f/u appt with me. Persistent AFIB -On Xarelto CXR and labs reviewed 232 SHAHBAZ NOLAN DO Feb 26, 2018 06:51
[2018-02-26] MEDS: RT-ALBUTEROL SULF 2.5 MG/3 ML PRE-MIX VIAL INH SCH ×2 (07:41→19:47)
--- NOTE | 2018-02-26 08:16 | Progress Note (SOAP) ---
Subjective Time Seen by Provider: 08:10 Subjective/Events-last exam According to the niece patient doing better today. Patient alert. Patient BNP increased. Kidney function good. Patient put on and dressed oh. Patient given Lasix IV. 40 mg. Focused Exam Lactate Level 02/26/18 07:16: Lactic Acid Level 0.96 Lactic Acid Level Laboratory Tests Test 02/26/18 07:16 Lactic Acid Level 0.96 MMOL/L (0.50-2.00) Objective Exam Vital Signs Date Time Temp Pulse Resp B/P (MAP) Pulse Ox O2 Delivery O2 Flow Rate FiO2 02/26/18 07:41 94 Nasal Cannula 2.00 02/26/18 04:05 98.6 80 17 115/66 (82) 94 Nasal Cannula 1.00 02/26/18 01:00 95 02/26/18 00:04 97.7 87 18 116/80 (92) 92 Nasal Cannula 1.00 02/25/18 20:00 Nasal Cannula 3.00 02/25/18 20:00 99.0 64 20 106/65 (79) 100 Nasal Cannula 2.00 02/25/18 19:00 73 02/25/18 18:49 92 Nasal Cannula 2.00 02/25/18 16:00 99.6 81 18 113/70 (84) 99 Nasal Cannula 2.00 02/25/18 14:32 120/60 (80) 02/25/18 12:00 98.6 82 22 114/66 (82) 94 Nasal Cannula 2.00 02/25/18 08:40 97.7 65 16 121/58 (79) 97 Nasal Cannula 2.00 I & O 02/26/18 07:00 Intake Total 1710 ml Output Total 900 ml Balance 810 ml Capillary Refill : Less Than 3 SecondsLess Than 3 Seconds General Appearance: No Apparent Distress, Thin HEENT: Normal ENT Inspection, Other (Dysarthria) Neck: Normal Inspection Respiratory: No Accessory Muscle Use, No Respiratory Distress Cardiovascular: Irregularly Irregular Gastrointestinal: non tender, soft Results Lab Laboratory Tests 02/26/18 05:28: White Blood Count 14.4H, Red Blood Count 3.48L, Hemoglobin 9.3L, Hematocrit 29L , Mean Corpuscular Volume 83, Mean Corpuscular Hemoglobin 27, Mean Corpuscular Hemoglobin Concent 32, Red Cell Distribution Width 18.4H, Platelet Count 116L, Mean Platelet Volume , Neutrophils (%) (Auto) 79H, Lymphocytes (%) (Auto) 5L, Monocytes (%) (Auto) 15H, Eosinophils (%) (Auto) 0, Basophils (%) (Auto) 0, Neutrophils # (Auto) 11.4H, Lymphocytes # (Auto) 0.8L, Monocytes # (Auto) 2.2H, Eosinophils # (Auto) 0.0, Basophils # (Auto) 0.0, Neutrophils % (Manual) 82, Lymphocytes % (Manual) 2, Monocytes % (Manual) 16, Eosinophils % (Manual) 0, Basophils % (Manual) 0, Band Neutrophils 0, Polychromasia SLIGHT, Hypochromasia MARKED, Poikilocytosis SLIGHT, Anisocytosis MODERATE, Macrocytosis MODERATE, Elliptocytes MARKED, Sodium Level 137, Potassium Level 3.4L, Chloride Level 101 , Carbon Dioxide Level 27, Anion Gap 9, Blood Urea Nitrogen 29H, Creatinine 0.82 , Estimat Glomerular Filtration Rate > 60, BUN/Creatinine Ratio 35, Glucose Level 108H, Calcium Level 8.4L, Total Bilirubin 0.9, Aspartate Amino Transf (AST /SGOT) 63H, Alanine Aminotransferase (ALT/SGPT) 97H, Alkaline Phosphatase 61, B- Type Natriuretic Peptide 2699.1H, Total Protein 5.4L, Albumin 2.8L 02/26/18 07:16: Lactic Acid Level 0.96 Microbiology 02/19/18 Blood Culture - Final, Complete No growth Assessment/Plan Assessment/Plan Assess & Plan/Chief Complaint CVA. A. fib. CHF. Dysarthria. Coronary artery disease. Chest x-ray looks worse the other day. . 02/24/18. Acute CVA. A. fib. CHF. Dysarthria. Chest x-ray ordered this morning very Coronary artery disease. Speech is improving. niece Is not here this morning. . 02/25/18. Acute CVA. A. fib. CHF. Dysarthria. Coronary artery disease. Patient weak this a.m. BNP coming down.. . 02/26/18. Acute CVA. A. fib. CHF. Liver enzymes elevated area Hold Lipitor. BNP elevated. Patient put on chest oh. Patient given Lasix IV today [facility] to [facility] Clinical Quality Measures Admission Status Admission Dx CVA. Pulmonary edema. Pneumonia. Short of breath. Mumbled speech. Atrial fibrillation. Cataracts DVT/VTE Risk/Contraindication: Risk Factor Score Per Nursin RFS Level Per Nursing on Admit: 4+=Very High Contraindications-Pharm: Other *list below* Stroke: Date of last known well: Feb 19, 2018 ARGENIS JERRY DO Feb 26, 2018 08:16
--- NOTE | 2018-02-26 08:22 | Diagnostic Imaging Report ---
INDICATION: Congestive heart failure. COMPARISON: 02/25/2018. FINDINGS: Two views of the chest are obtained. Heart size remains enlarged. There is minimal central venous distention, significantly improved from the prior study with significant decrease in bilateral hazy perihilar opacity. There is no pneumothorax. There are persistent bilateral pleural effusions and bibasilar atelectasis or infiltrate, also mildly improved. IMPRESSION: Findings of congestive failure showing moderate improvement from the prior study. There is persistent bilateral pleural effusion and bibasilar airspace disease. Dictated by: Dictated on workstation # [id number]
[2018-02-26 08:30] VITALS: BP 106/65
[2018-02-26] MEDS: ASPIRIN 81 MG CHEW (CHILDREN'S ASA) PO SCH (08:41)
[2018-02-26] MEDS: meTOproloL SUCCINATE 50 MG (TOPROL XL) TAB PO SCH (08:42)
[2018-02-26] MEDS: DILTIAZEM 240 MG (CARDIZEM CD) CAP PO SCH (08:42)
[2018-02-26] MEDS: SACUBITRIL/VALSARTAN 24/26 MG (ENTRESTO) TABLET PO SCH ×2 (08:45→20:30)
[2018-02-26] MEDS: DOCUSATE SODIUM 100 MG (COLACE) CAP PO SCH ×2 (08:45→20:26)
[2018-02-26] MEDS: POLYETHYLENE GLYCOL 17 GM (MIRALAX) PACK PO SCH ×2 (08:46→20:26)
[2018-02-26] MEDS ORDERED: FUROSEMIDE 40 MG/4 ML INJ (LASIX) IVP SCH (09:00)
--- NOTE | 2018-02-26 09:02 | Speech Therapy Daily Note ---
Speech Daily Progress Note Subjective Date Seen by Provider: Feb 26, 2018 Time Seen by Provider: 08:40 The patient was seated upright in bed upon entrance. The patient's niece was present at bedside. The patient appeared more alert on this date, however, still reported drowsiness. Objective Due to the patient's fluctuating alertness, strength, respiratory function, and dysphagia, the speech pathologist re-evaluated the patient's swallowing function. Thin Liquid: The patient demonstrated one throat clear following one of five bolus trials. Additionally, the patient's vocal quality appeared consistently "wet." Edwards-Thick Liquid: No signs/symptoms of aspiration were demonstrated with multiple boluses of nectar-thick liquid. The patient's vocal quality remained clear. The patient's niece requested toast for the patient. The rationale behind avoiding solid consistencies at this time (energy conservation) was discussed with the niece, who verbalized comprehension. The patient continues to fatigue quickly throughout meals. The patient requested to rest following the session. Assessment Assessment Current Status: Fair Progress Treatment Plan Continue Plan of Care Speech Short Term Goals Short Term Goals Short Term Goals 1. The patient will demonstrate 60% accuracy with repetition of single and multi -syllabic bilabial words. 2. The patient will display 75% accuracy with oral motor exercises. 3. The patient will tolerate 10/10 bolus trials with nectar-thick liquids without signs/symptoms of aspiration. Time Frame-STG: Three Days Speech Mcc Goals Mcc Goals 1. The patient will display increased intelligibility through expressive communication. 2. The patient will tolerate the least restrictive diet without signs/symptoms of aspiration. Time Frame: One Week Speech-Plan Treatment Plan Speech Therapy Treatment Plan: Continue Plan of Care Continue skilled speech pathology to target swallowing safety. Treatment Duration: Mar 02, 2018 Frequency: 3 times per week Estimated Hrs Per Day: .5 hour per day Rehab Potential: Fair Safety Risks/Education Teaching Recipient: Patient Teaching Methods: Discussion Response to Teaching: Reinforcement Needed Education Topics Provided: Results, Recommendations Time Speech Therapy Time In: 08:40 Speech Therapy Time Out: 09:00 Total Billed Time: 20 Billed Treatment Time CHRISTIAN Oden PAZDARWIN ST Feb 26, 2018 09:02
[2018-02-26 09:23] LABS: BASOPHILS % (AUTO) 0 % (0-10); EOSINOPHILS % (AUTO) 0 % (0-10); HEMATOCRIT 29 % (35-52); HEMOGLOBIN 9.2 G/DL (11.5-16.0); LYMPHOCYTES # (AUTO) 0.7 X 10^3 (1.0-4.0); LYMPHOCYTES % (AUTO) 5 % (12-44); MEAN CORPUSCULAR HEMOGLOBIN 27 PG (25-34); MEAN CORPUSCULAR HGB CONC 32 G/DL (32-36); MEAN CORPUSCULAR VOLUME 84 FL (80-99); MEAN PLATELET VOLUME 13.2 FL (7.4-10.4); MONOCYTES # (AUTO) 1.9 X 10^3 (0.0-1.0); MONOCYTES % (AUTO) 13 % (0-12); NEUTROPHILS # (AUTO) 12.3 X 10^3 (1.8-7.8); NEUTROPHILS % (AUTO) 82 % (42-75); PLATELET COUNT 118 10^3/uL (130-400); RED BLOOD COUNT 3.47 10^6/uL (4.35-5.85); RED CELL DISTRIBUTION WIDTH 18.4 % (10.0-14.5); WHITE BLOOD COUNT 14.9 10^3/uL (4.3-11.0)
--- NOTE | 2018-02-26 10:31 | Physical Therapy Daily Note ---
PT Daily Note-Current Subjective Patient agrees to PT. She states she is very tired. Pain Numeric Pain Scale: 0-No Pain Location: No Pain Reported Mental Status Patient Orientation: Person, Time, Situation Attachments: Oxygen Transfers Functional [place] Measure 0=Not Assessed/NA 4=Minimal Assistance 1=Total Assistance 5=Supervision or Setup 2=Maximal Assistance 6=Modified [place] 3=Moderate Assistance 7=Complete IndependenceIRFPAI Quality Coding Scale 6 Independent with activity with or without an assistive device 5 Patient requires set up or clean up by helper. Patient completes activity by themselves 4 Supervision or touching assist (CGA). [place] provide cues , steadying assist 3 The helper provides less than half the effort to complete the activity 2 The helper provides more than half the effort to complete the activity 1 Dependent. The helper does all the effort to complete an activity 7 Patient refused to complete or attempt activity 9 The patient did not perform the activity before the current illness or injury 88 Not attempted due to Medical conditions or safety concerns Transfers (B, C, W/C) (FIM): 3 Scootin Sit to/from Stand: 3 Bed to/from Chair: 3 Patient is very impulsive to sit from standing position requiring mod assist to safely attain sit in recliner Weight Bearing Right Lower Extremity: Right Full Weight Bearing Left Lower Extremity: Left Full Weight Bearing Gait Training Gait (FIM): 2 Distance (FIM): 0=041-55 ft Distance: 125' Gait Level of Assist: 3 Gait Persons Needed: 1 (with assist of 1 for O2 tank) Gait Assistive Device: FWW scissor gait sequence with left lean Exercises Seated Therapy Exercises: Ankle pumps, Long arc quads, Hip flexion Seated Reps: 20 (2 sets) Assessment Patient tolerated treatment and remains up in recliner with chair alarm activated. Patient is progressing slowly and continues to require assistance due to Poor balance and safety concerns. PT Airworthiness Inspector Goals Airworthiness Inspector Goals PT Airworthiness Inspector Goals Time Frame: Mar 06, 2018 Transfers (B,C,W/C) (FIM): 4 Gait (FIM): 2 Gait distance (FIM): 2=573-81 ft Distance: 125' Gait Level of Assist: 4 Gait Assistive Device: FWW PT Plan Problem List Problem List: Activity Tolerance, Functional Strength, Safety, Balance, Gait, Transfer, Bed Mobility Treatment/Plan Treatment Plan: Continue Plan of Care Treatment Plan: Bed Mobility, Education, Functional Activity Larry, Functional Strength, Gait, Safety, Therapeutic Exercise, Transfers Treatment Duration: Mar 06, 2018 Frequency: 6 times per week Estimated Hrs Per Day: .5 hour per day Patient and/or Family Agrees t: Yes Discharge Recommendations Therapy D/C Recommendations: Halfway Placement, Longterm (TCU/NH) Time/GCodes Time In: 1007 Time Out: 1020 Total Billed Treatment Time: 13 Total Billed Treatment 1 visit FA 13 min GIRISH MONTES DE OCA PT Feb 26, 2018 10:31
[2018-02-26 10:57] LABS: BILIRUBIN,URINE NEGATIVE (NEGATIVE); CLARITY,URINE CLEAR; COLOR,URINE YELLOW; GLUCOSE, URINE (UA) NEGATIVE (NEGATIVE); KETONES,URINE NEGATIVE (NEGATIVE); LEUKOCYTE ESTERASE ,URINE 2+ (NEGATIVE); NITRITE,URINE NEGATIVE (NEGATIVE); PH,URINE 8 (5-9); PROTEIN,URINE NEGATIVE (NEGATIVE); UROBILINOGEN,URINE NORMAL (NORMAL)
[2018-02-26 11:07] LABS: AMORPHOUS SEDIMENT,UR FEW AMOR PHOSPHATE /LPF; BACTERIA,URINE LARGE /HPF; SQUAMOUS EPITHELIAL CELL,UR 0-2 /HPF
[2018-02-26] MEDS: CEFEPIME 2 GM/NS 50 ML IVPB IV SCH ×2 (11:37)
[2018-02-26 12:30] VITALS: BP 110/75
--- NOTE | 2018-02-26 12:32 | Cardiology Progress Note ---
Subjective Date Seen by Provider: Feb 26, 2018 Time Seen by Provider: 12:27 Subjective/Events-last exam Patient is laying down in bed, lethargic. No chest pain. No palpitation, not dyspneic. Review of Systems General: No Chills, No Night Sweats, No Fatigue, No Malaise, No Appetite, No Other HEENT: No Head Aches, No Visual Changes, No Eye Pain, No Ear Pain, No Dysphasia , No Sinus Congestion, No Post Nasal Drip, No Sore Throat, No Other Pulmonary: No Dyspnea, No Cough, No Pleuritic Chest Pain, No Other Cardiovascular: No: Chest Pain, Palpitations, Orthopnea, Paroxysmal Noc. Dyspnea, Edema, Lt Headedness, Other Focused Exam Lactate Level 02/26/18 07:16: Lactic Acid Level 0.96 Objective-Cardiology Exam Last Set of Vital Signs Vital Signs 02/24/18 02/26/18 21:41 08:30 Temp 96.2 Pulse 79 Resp 16 B/P (MAP) 106/65 (79) Pulse Ox 97 O2 Delivery Nasal Cannula O2 Flow Rate 1.00 FiO2 28 Capillary Refill : Less Than 3 SecondsLess Than 3 Seconds I&O Intake and Output 02/26/18 00:00 Intake Total 1660 ml Output Total 2100 ml Balance -440 ml Intake Oral 1410 ml IV Total 250 ml Output Urine Total 2100 ml # Voids 2 # Bowel Movements 4 General: Alert, Oriented X3, Cooperative HEENT: Atraumatic, PERRLA Neck: Supple, No JVD, No Thyromegaly Lungs: Clear to Auscultation, Normal Air Movement Heart: Normal S1, Normal S2, No Murmurs, Other (Irregular rhythm) Abdomen: Normal Bowel Sounds, Soft, No Tenderness, No Hepatosplenomegaly, No Masses Extremities: No Clubbing, No Cyanosis, No Edema, Normal Pulses, No Tenderness/ Swelling Skin: No Rashes, No Breakdown, No Significant Lesion Neuro: Normal Tone, Sensation Intact Psych/Mental Status: Mood NL Results Lab Laboratory Tests 02/26/18 05:28 02/26/18 09:15 A/P-Cardiology Admission Diagnosis Acute CVA Paroxysmal atrial fibrillation Congestive heart failure Coronary artery disease Assessment/Plan 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 Elevated INR due to chronic rivaroxaban therapy. INR is elevated in most patients on Direct Xa inhibitors (especially rivaroxaban) and cannot be used to monitor therapy or adjust dose Acute on chronic systolic CHF, ischemic cardiomyopathy, ejection fraction 35-40 percent, chest x-ray showed persistent pulmonary edema, BNP level is worse, I will repeat 2-D echocardiogram, continue on Lasix and monitor response CAD. S/p mid RCA stent (Integrity 2.75x12) in early Oct 2013 following presentation with ac NSTEMI. The rest of the cors had diffuse mod disease with stenoses of upto 50-60%. Continue to monitor at this time MPI of 07/11/17 showed no ischemia of infarction and LVEF of 45% (subjectively felt to be higher) Apparently intolerant to ANTOINE-inhibitor and ARB due to worsening of renal function. This is being managed by Dr Alvarez Carotid u/s from January 09, 2015 showed bilat plaque at the carotid bifurcation with velocities suggestive of underlying stenosis in the range of 60-79% in the right ICA, and in the left ICA 0-40%, unchanged on subsequent carotid u/s of . Carotid u/s of January 2017 showed mod bilat carotid plaque Anemia diagnosed at time of hospitalization of Oct 2013. Etiology unclear. Stable post blood transfusions during hosp of Oct 2013 Hyperlipidemia, treated with atorvastatin and followed by Dr Alvarez CKD stage 2-3, monitor renal function H/O CVA in December 2014 Clinical Quality Measures DVT/VTE Risk/Contraindication: Risk Factor Score Per Nursin RFS Level Per Nursing on Admit: 4+=Very High Contraindications-Pharm: Other *list below* Stroke: Date of last known well: Feb 19, 2018 UNIQUE MCCARTNEY MD Feb 26, 2018 12:32
--- NOTE | 2018-02-26 13:33 | Occupational Ther Daily Note ---
OT Current Status-Daily Note Subjective Pt sleeping in bed. Pt opened eyes to name. Using vocalization, hand gestures and nodding head to communicate. Mental Status/Objective Patient Orientation: Person, Place Functional [place] Measure 0=Not Assessed/NA 4=Minimal Assistance 1=Total Assistance 5=Supervision or Setup 2=Maximal Assistance 6=Modified [place] 3=Moderate Assistance 7=Complete [place] Attachments: IV, Oxygen, Telemetry Other Treatment Pt communicated she was tired and did not want to work with therapy. HALL encouraged pt to move up in bed and use LE's to assist with mobility. Pt was able to bend legs and push self up in bed with min A. Pt then held onto cup and take sip, tucking chin with swallowing. Pt then closed eyes and fell asleep. Call light/phone in reach. Safety measures in place. All needs met in room. OT Short Term Goals Short Term Goals 1=Demonstrate adherence to instructed precautions during ADL tasks. 2=Patient will verbalize/demonstrate understanding of assistive devices/ modifications for ADL. 3=Patient will improve strength/tolerance for activity to enable patient to perform ADL's. OT Control Electrician Goals Control Electrician Goals Time Frame: Mar 09, 2018 Eating (FIM): 6 Grooming(FIM): 6 Bathing(FIM): 5 Upper Body Dressing(FIM): 6 Lower Body Dressing(FIM): 6 Toileting(FIM): 6 Transfers (B,C,W/C) (FIM): 6 Toilet/Commode Transfer(FIM): 6 Shower Transfer(FIM): 5 Additional Goals: 1-Demonstrate ADL Tasks, 2-Verbalize Understanding, 3- ImproveStrength/Larry 1=Demonstrate adherence to instructed precautions during ADL tasks. 2=Patient will verbalize/demonstrate understanding of assistive devices/ modifications for ADL. 3=Patient will improve strength/tolerance for activity to enable patient to perform ADL's. OT Education/Plan Discharge Recommendations Plan/Recommendations: Continue POC Treatment Plan/Plan of Care Patient would benefit from OT for education, treatment and training to promote independence in ADL's, mobility, safety and/or upper extremity function for ADL' s. Plan of Care: ADL Retraining, Functional Mobility Treatment Duration: Mar 09, 2018 Frequency: 5 times per week Estimated Hrs Per Day: .25 hour per day Agreement: Yes Rehab Potential: Fair Time/GCodes Start Time: 13:20 Stop Time: 13:30 Total Time Billed (hr/min): 10 Billed Treatment Time 1 visit-FA 1 (10 min) GUI MCKEON Feb 26, 2018 13:33
[2018-02-26 16:15] VITALS: BP 118/59
[2018-02-26] MEDS ORDERED: FUROSEMIDE 40 MG/4 ML INJ (LASIX) IVP NR (16:45)
[2018-02-26] MEDS: RIVAROXABAN 15 MG TABLET (XARELTO) PO SCH (19:13)
[2018-02-26 19:15] VITALS: BP 103/58
[2018-02-27] VITALS (7 sets, daily range): BP systolic 91–112; BP diastolic 51–75
[2018-02-27] MEDS: NITROGLYCERIN 2% OINT 1 GM UNIT DOSE PACKET TOP SCH ×3 (05:39→22:20)
[2018-02-27] MEDS: CATHETER FLUSH 10 ML SYR IV SCH ×3 (05:39→20:36)
[2018-02-27] MEDS ORDERED: PIPERACILLIN SODIUM/TAZOBACTAM 4.5 GM in D5W 100 ML IVPB 100 ML IV SCH (06:00)
[2018-02-27] MEDS ORDERED: PHARMACY TO DOSE IV SCH (06:00)
--- NOTE | 2018-02-27 06:03 | Pulmonary Progress Note ---
Subjective Time Seen by Provider: 06:08 Subjective/Events-last exam pt complains of SOB with exertion. Focused Exam Lactate Level 02/26/18 07:16: Lactic Acid Level 0.96 Exam Exam Vital Signs Date Time Temp Pulse Resp B/P (MAP) Pulse Ox O2 Delivery O2 Flow Rate FiO2 02/27/18 04:21 98.0 82 18 108/60 (76) 94 Nasal Cannula 1.00 02/27/18 01:00 70 02/27/18 00:32 97.7 73 19 112/59 (76) 96 Nasal Cannula 1.00 02/26/18 20:26 96 Nasal Cannula 2.00 02/26/18 19:47 84 Nasal Cannula 1.00 02/26/18 19:15 97.7 38 16 103/58 (73) 96 Nasal Cannula 1.00 02/26/18 19:00 74 02/26/18 16:15 98.5 76 20 118/59 (78) 98 Nasal Cannula 1.00 02/26/18 13:00 58 02/26/18 12:30 97.8 83 18 110/75 (87) 98 Nasal Cannula 1.00 02/26/18 08:30 96.2 79 16 106/65 (79) 97 Nasal Cannula 1.00 02/26/18 08:00 96 Nasal Cannula 1.00 02/26/18 07:42 81 02/26/18 07:41 94 Nasal Cannula 2.00 I & O 02/27/18 07:00 Intake Total 640 ml Output Total 1370 ml Balance -730 ml General Appearance: No Apparent Distress, Thin HEENT: Normal ENT Inspection Neck: Full Range of Motion, Normal Inspection Respiratory: Chest Non Tender, No Accessory Muscle Use, No Respiratory Distress Cardiovascular: Irregularly Irregular Capillary Refill: Less Than 3 Seconds Gastrointestinal: non tender, soft Extremity: Normal Capillary Refill, Normal Inspection Neurologic/Psychiatric: Alert, No Motor/Sensory Deficits, Normal Mood/Affect, Other (subtle poor recall, dysarthria) Skin: Normal Color, Warm/Dry Lymphatic: No Adenopathy Results Lab Laboratory Tests 02/26/18 05:28 02/26/18 09:15 Assessment/Plan Assessment/Plan CVA /R [place] non-hemorrhagic stroke on 02/19/18 Dysphagia -speech therapy is following -Pt is on dysphagia diet -Aspiration precautions leukocytosis r/o aspiration pneumonia -change Abx to Zosyn, to Vanco. -add daily labs, and CXR metabolic acidosis-- improved CHF EF is 35-40% SOB with pulmonary edema with hypoxia -monitor close -repeat CXR possible JOANNE -will schedule out patient sleep study at f/u appt with me. Persistent AFIB -On Xarelto CXR and labs reviewed 233 SHAHBAZ NOLAN DO Feb 27, 2018 06:03
[2018-02-27 06:16] LABS: BASOPHILS % (AUTO) 0 % (0-10); EOSINOPHILS # (AUTO) 0.1 10^3/uL (0.0-0.3); EOSINOPHILS % (AUTO) 1 % (0-10); HEMATOCRIT 31 % (35-52); HEMOGLOBIN 9.4 G/DL (11.5-16.0); LYMPHOCYTES # (AUTO) 0.9 X 10^3 (1.0-4.0); LYMPHOCYTES % (AUTO) 6 % (12-44); MEAN CORPUSCULAR HEMOGLOBIN 26 PG (25-34); MEAN CORPUSCULAR HGB CONC 31 G/DL (32-36); MEAN CORPUSCULAR VOLUME 83 FL (80-99); MONOCYTES # (AUTO) 2.9 X 10^3 (0.0-1.0); MONOCYTES % (AUTO) 20 % (0-12); NEUTROPHILS # (AUTO) 10.9 X 10^3 (1.8-7.8); NEUTROPHILS % (AUTO) 74 % (42-75); PLATELET COUNT 137 10^3/uL (130-400); RED BLOOD COUNT 3.68 10^6/uL (4.35-5.85); RED CELL DISTRIBUTION WIDTH 18.5 % (10.0-14.5); WHITE BLOOD COUNT 14.8 10^3/uL (4.3-11.0)
[2018-02-27 06:38] LABS: ALANINE AMINOTRANSFERASE 72 U/L (0-55); ALBUMIN 2.7 GM/DL (3.2-4.5); ALKALINE PHOSPHATASE 57 U/L (40-136); BILIRUBIN,TOTAL 0.9 MG/DL (0.1-1.0); BUN/CREATININE RATIO 39; CALCIUM 8.2 MG/DL (8.5-10.1); CARBON DIOXIDE 26 MMOL/L (21-32); CHLORIDE 101 MMOL/L (98-107); CREATININE SERUM 0.76 MG/DL (0.60-1.30); GFR ESTIMATED > 60; GLUCOSE 99 MG/DL (70-105); MAGNESIUM 2.1 MG/DL (1.8-2.4); SODIUM 136 MMOL/L (135-145); TOTAL PROTEIN 5.5 GM/DL (6.4-8.2)
[2018-02-27] MEDS: PANTOPRAZOLE 20 MG TABLET (PROTONIX) PO SCH (06:38)
[2018-02-27] MEDS ORDERED: VANCOMYCIN 750 MG/NS 250 ML IVPB IV NR ×2 (07:00)
[2018-02-27] MEDS ORDERED: PIPERACILLIN/TAZO 3.375 GM/D5W 100 ML IV NR ×2 (07:00)
--- NOTE | 2018-02-27 07:46 | Progress Note (SOAP) ---
Subjective Time Seen by Provider: 07:45 Subjective/Events-last exam Patient continues to improve. BNP over 1700. Patient have increase Lasix. Patient speaking better. But still a work in progress. Atrial fibrillation. Pulmonary edema increase the Lasix IV. Patient put on and chest oh. Monitor kidney function White blood cell count still elevated. Potassium 3. Liver tests improving Focused Exam Lactate Level 02/26/18 07:16: Lactic Acid Level 0.96 Objective Exam Vital Signs Date Time Temp Pulse Resp B/P (MAP) Pulse Ox O2 Delivery O2 Flow Rate FiO2 02/27/18 04:21 98.0 82 18 108/60 (76) 94 Nasal Cannula 1.00 02/27/18 01:00 70 02/27/18 00:32 97.7 73 19 112/59 (76) 96 Nasal Cannula 1.00 02/26/18 20:26 96 Nasal Cannula 2.00 02/26/18 19:47 84 Nasal Cannula 1.00 02/26/18 19:15 97.7 38 16 103/58 (73) 96 Nasal Cannula 1.00 02/26/18 19:00 74 02/26/18 16:15 98.5 76 20 118/59 (78) 98 Nasal Cannula 1.00 02/26/18 13:00 58 02/26/18 12:30 97.8 83 18 110/75 (87) 98 Nasal Cannula 1.00 02/26/18 08:30 96.2 79 16 106/65 (79) 97 Nasal Cannula 1.00 02/26/18 08:00 96 Nasal Cannula 1.00 I & O 02/27/18 07:00 Intake Total 640 ml Output Total 1370 ml Balance -730 ml Capillary Refill : Less Than 3 SecondsLess Than 3 Seconds General Appearance: No Apparent Distress, Thin HEENT: Normal ENT Inspection Neck: Full Range of Motion, Non Tender Respiratory: No Accessory Muscle Use, No Respiratory Distress Cardiovascular: Irregularly Irregular Gastrointestinal: non tender, soft Results Lab Laboratory Tests 02/26/18 09:15 02/27/18 06:03 Laboratory Tests 02/26/18 09:15: White Blood Count 14.9H, Red Blood Count 3.47L, Hemoglobin 9.2L, Hematocrit 29L , Mean Corpuscular Volume 84, Mean Corpuscular Hemoglobin 27, Mean Corpuscular Hemoglobin Concent 32, Red Cell Distribution Width 18.4H, Platelet Count 118L, Mean Platelet Volume 13.2H, Neutrophils (%) (Auto) 82H, Lymphocytes (%) (Auto) 5L, Monocytes (%) (Auto) 13H, Eosinophils (%) (Auto) 0, Basophils (%) (Auto) 0, Neutrophils # (Auto) 12.3H, Lymphocytes # (Auto) 0.7L, Monocytes # (Auto) 1.9H, Eosinophils # (Auto) 0.0, Basophils # (Auto) 0.0 02/26/18 10:45: Urine Color YELLOW, Urine Clarity CLEAR, Urine pH 8, Urine Specific [place] 1.010L, Urine Protein NEGATIVE, Urine Glucose (UA) NEGATIVE, Urine Ketones NEGATIVE, Urine Nitrite NEGATIVE, Urine Bilirubin NEGATIVE, Urine Urobilinogen NORMAL, Urine Leukocyte Esterase 2+H, Urine RBC (Auto) 5+H, Urine RBC 10-25H, Urine WBC 10-25H, Urine Squamous Epithelial Cells 0-2, Urine Crystals PRESENTH, Urine Amorphous Sediment FEW LORENZO PHOSPHATEH, Urine Bacteria LARGEH, Urine Casts NONE, Urine Mucus NEGATIVE, Urine Culture Indicated YES 02/27/18 06:03: White Blood Count 14.8H, Red Blood Count 3.68L, Hemoglobin 9.4L, Hematocrit 31L , Mean Corpuscular Volume 83, Mean Corpuscular Hemoglobin 26, Mean Corpuscular Hemoglobin Concent 31L, Red Cell Distribution Width 18.5H, Platelet Count 137, Mean Platelet Volume , Neutrophils (%) (Auto) 74, Lymphocytes (%) (Auto) 6L, Monocytes (%) (Auto) 20H, Eosinophils (%) (Auto) 1, Basophils (%) (Auto) 0, Neutrophils # (Auto) 10.9H, Lymphocytes # (Auto) 0.9L, Monocytes # (Auto) 2.9H, Eosinophils # (Auto) 0.1, Basophils # (Auto) 0.0, Sodium Level 136, Potassium Level 3.0L, Chloride Level 101, Carbon Dioxide Level 26, Anion Gap 9, Blood Urea Nitrogen 30H, Creatinine 0.76, Estimat Glomerular Filtration Rate > 60, BUN /Creatinine Ratio 39, Glucose Level 99, Calcium Level 8.2L, Magnesium Level 2.1 , Total Bilirubin 0.9, Aspartate Amino Transf (AST/SGOT) 39H, Alanine Aminotransferase (ALT/SGPT) 72H, Alkaline Phosphatase 57, B-Type Natriuretic Peptide 1724.7H, Total Protein 5.5L, Albumin 2.7L Microbiology 02/19/18 Blood Culture - Final, Complete No growth Assessment/Plan Assessment/Plan Assess & Plan/Chief Complaint CVA. A. fib. CHF. Dysarthria. Coronary artery disease. Chest x-ray looks worse the other day. . 02/24/18. Acute CVA. A. fib. CHF. Dysarthria. Chest x-ray ordered this morning very Coronary artery disease. Speech is improving. niece Is not here this morning. . 02/25/18. Acute CVA. A. fib. CHF. Dysarthria. Coronary artery disease. Patient weak this a.m. BNP coming down.. . 02/26/18. Acute CVA. A. fib. CHF. Liver enzymes elevated area Hold Lipitor. BNP elevated. Patient put on chest oh. Patient given Lasix IV today Patient to go to jail probably tomorrow. 02/27/18. Acute CVA. A. fib. Pulmonary edema. Elevated liver tests improving. BNP over 1700 better. Increased the dose of Lasix. Pneumonia Clinical Quality Measures Admission Status Admission Dx CVA. Pulmonary edema. Pneumonia. Short of breath. Mumbled speech. Atrial fibrillation. Cataracts DVT/VTE Risk/Contraindication: Risk Factor Score Per Nursin RFS Level Per Nursing on Admit: 4+=Very High Contraindications-Pharm: Other *list below* Stroke: Date of last known well: Feb 19, 2018 ARGENIS JERRY DO Feb 27, 2018 07:46
[2018-02-27] MEDS: FUROSEMIDE 40 MG/4 ML INJ (LASIX) IVP SCH (07:54)
[2018-02-27] MEDS: meTOproloL SUCCINATE 50 MG (TOPROL XL) TAB PO SCH (07:55)
[2018-02-27] MEDS: DILTIAZEM 240 MG (CARDIZEM CD) CAP PO SCH (07:55)
[2018-02-27] MEDS: DOCUSATE SODIUM 100 MG (COLACE) CAP PO SCH ×2 (07:55→20:36)
[2018-02-27] MEDS: POLYETHYLENE GLYCOL 17 GM (MIRALAX) PACK PO SCH ×2 (07:56→20:36)
--- NOTE | 2018-02-27 08:10 | Diagnostic Imaging Report ---
INDICATION: Congestive heart failure Portable chest 3:27 AM There is cardiomegaly with pulmonary vascular congestion and bilateral effusions with basilar atelectasis and/or infiltrate. IMPRESSION: Pulmonary venous hypertension with pleural effusions and basilar consolidation that could be infiltrate or atelectasis. Dictated by: Dictated on workstation # [id number]
[2018-02-27] MEDS: ASPIRIN 81 MG CHEW (CHILDREN'S ASA) PO SCH (08:17)
[2018-02-27] MEDS: SACUBITRIL/VALSARTAN 24/26 MG (ENTRESTO) TABLET PO SCH ×2 (08:18→20:39)
[2018-02-27] MEDS: RT-ALBUTEROL SULF 2.5 MG/3 ML PRE-MIX VIAL INH SCH ×2 (09:13→18:28)
--- NOTE | 2018-02-27 10:55 | Physical Therapy Daily Note ---
PT Daily Note-Current Subjective Patient in bed pre tx, agrees to PT, no complaints of pain. Appearance Patient back to bed post tx with nurse call, phone, tray, bed alarm on. Mental Status Patient Orientation: Person Attachments: Oxygen, IV Transfers Functional [place] Measure 0=Not Assessed/NA 4=Minimal Assistance 1=Total Assistance 5=Supervision or Setup 2=Maximal Assistance 6=Modified [place] 3=Moderate Assistance 7=Complete IndependenceIRFPAI Quality Coding Scale 6 Independent with activity with or without an assistive device 5 Patient requires set up or clean up by helper. Patient completes activity by themselves 4 Supervision or touching assist (CGA). [place] provide cues , steadying assist 3 The helper provides less than half the effort to complete the activity 2 The helper provides more than half the effort to complete the activity 1 Dependent. The helper does all the effort to complete an activity 7 Patient refused to complete or attempt activity 9 The patient did not perform the activity before the current illness or injury 88 Not attempted due to Medical conditions or safety concerns Transfers (B, C, W/C) (FIM): 3 Scootin Rollin Supine to/from Sit: 5 Sit to/from Stand: 3 Bed to/from Chair: 3 Weight Bearing Right Lower Extremity: Right Full Weight Bearing Left Lower Extremity: Left Full Weight Bearing Gait Training Gait (FIM): 3 Distance: 150' Gait Level of Assist: 3 Gait Persons Needed: 1 Gait Assistive Device: FWW Patient ambulates with walker too far out in front, slumped, very poor coordination. Exercises Seated Therapy Exercises: Ankle pumps, Long arc quads Seated Reps: 15 Treatments bed mobility and transfers, ambulation, functional strengthening Assessment Current Status: Poor Progress Patient has poor coordination during mobility PT Fdc Goals Fdc Goals PT Fdc Goals Time Frame: Mar 06, 2018 Transfers (B,C,W/C) (FIM): 4 Gait (FIM): 2 Gait distance (FIM): 5=368-29 ft Distance: 125' Gait Level of Assist: 4 Gait Assistive Device: FWW PT Plan Problem List Problem List: Activity Tolerance, Functional Strength, Safety, Balance, Gait, Transfer, Bed Mobility Treatment/Plan Treatment Plan: Continue Plan of Care Treatment Plan: Bed Mobility, Education, Functional Activity Larry, Functional Strength, Gait, Safety, Therapeutic Exercise, Transfers Treatment Duration: Mar 06, 2018 Frequency: 6 times per week Estimated Hrs Per Day: .5 hour per day Patient and/or Family Agrees t: Yes Safety Risks/Education Patient Education: Gait Training, Transfer Techniques, Correct Positioning, Safety Issues Teaching Recipient: Patient Teaching Methods: Demonstration, Discussion Response to Teaching: Reinforcement Needed Time/GCodes Time In: 1035 Time Out: 1055 Total Billed Treatment Time: 15 Total Billed Treatment 1 visit GT 15' JESUS CHACON PT Feb 27, 2018 10:55
--- NOTE | 2018-02-27 11:05 | Speech Therapy Daily Note ---
Speech Daily Progress Note Subjective Date Seen by Provider: Feb 27, 2018 Time Seen by Provider: 10:45 The patient was laying in bed, sleeping upon entrance. The patient woke to her spoken name and was agreeable to participation in the dysphagia treatment session. Objective Thin Liquid (teaspoon): The patient demonstrated a delayed cough and throat clear in correlation to two of two teaspoons of thin liquid provided. [place]- Thick Liquid: No signs/symptoms of aspiration were demonstrated with multiple trials of nectar-thick liquid. The patient's vocal quality remained clear. Puree: No signs/symptoms of aspiration were demonstrated with multiple trials of puree consistency. Mechanical Soft: In attempts to upgrade the patient's solid consistency, a heidy cracker was crushed and placed in puree (vanilla pudding). The patient demonstrated extreme fatigue with mastication, as well as, appeared to fall asleep prior to finishing cracker. With verbal prompting, the patient continued mastication, however, displayed an immediate cough upon swallowing. Recommendations: The patient should continue on her current diet consistency recommendations. To note, the patient appeared greatly fatigued, requiring consistent verbal prompting for appropriate alertness. Assessment Assessment Current Status: Fair Progress Treatment Plan Continue Plan of Care Speech Short Term Goals Short Term Goals Short Term Goals 1. The patient will demonstrate 60% accuracy with repetition of single and multi -syllabic bilabial words. 2. The patient will display 75% accuracy with oral motor exercises. 3. The patient will tolerate 10/10 bolus trials with nectar-thick liquids without signs/symptoms of aspiration. Time Frame-STG: Three Days Speech Fire Chief'S Aide Goals Halfway Goals 1. The patient will display increased intelligibility through expressive communication. 2. The patient will tolerate the least restrictive diet without signs/symptoms of aspiration. Time Frame: One Week Speech-Plan Treatment Plan Speech Therapy Treatment Plan: Continue Plan of Care Continue skilled speech pathology to target swallowing safety. Treatment Duration: Mar 02, 2018 Frequency: 3 times per week Estimated Hrs Per Day: .5 hour per day Rehab Potential: Fair Safety Risks/Education Teaching Recipient: Patient Teaching Methods: Discussion Response to Teaching: Verbalize Understanding Education Topics Provided: Results, Recommendations Time Speech Therapy Time In: 10:45 Speech Therapy Time Out: 11:05 Total Billed Time: 20 Billed Treatment Time CHRISTIAN Oden DARWIN MULLEN Feb 27, 2018 11:05
[2018-02-27] MEDS: CEFEPIME 2 GM/NS 50 ML IVPB IV SCH ×2 (11:16)
[2018-02-27] MEDS: POTASSIUM CL 10MEQ/50ML IVPB 50 ML IV SCH ×4 (11:24→16:37)
[2018-02-27] MEDS: NS IV 500 ML 500 ML IV SCH (12:19)
--- NOTE | 2018-02-27 12:49 | Occupational Ther Daily Note ---
OT Current Status-Daily Note Subjective Pt alert, lying in bed. Visitors present in room. Pt agrees to therapy. Mental Status/Objective Patient Orientation: Person, Place, Time, Situation Functional [place] Measure 0=Not Assessed/NA 4=Minimal Assistance 1=Total Assistance 5=Supervision or Setup 2=Maximal Assistance 6=Modified [place] 3=Moderate Assistance 7=Complete [place] Attachments: IV, Oxygen Other Treatment Pt more alert today. Eyes open throughout session. Pt using vocalization, hand and head gestures to communicate. Pt was able to complete 5 UE exercises against gravity, 5 reps, without SOA. Pt's R UE able to complete exercises with full ROM, L UE became fatigued and went through only partial ROM. HALL attempted to get pt to sit up in recliner, pt declined. After therapy, pt lying in bed with call light/phone in reach. All needs met in room. Visitors present in room. OT Short Term Goals Short Term Goals 1=Demonstrate adherence to instructed precautions during ADL tasks. 2=Patient will verbalize/demonstrate understanding of assistive devices/ modifications for ADL. 3=Patient will improve strength/tolerance for activity to enable patient to perform ADL's. OT Snf Goals Snf Goals Time Frame: Mar 09, 2018 Eating (FIM): 6 Grooming(FIM): 6 Bathing(FIM): 5 Upper Body Dressing(FIM): 6 Lower Body Dressing(FIM): 6 Toileting(FIM): 6 Transfers (B,C,W/C) (FIM): 6 Toilet/Commode Transfer(FIM): 6 Shower Transfer(FIM): 5 Additional Goals: 1-Demonstrate ADL Tasks, 2-Verbalize Understanding, 3- ImproveStrength/Larry 1=Demonstrate adherence to instructed precautions during ADL tasks. 2=Patient will verbalize/demonstrate understanding of assistive devices/ modifications for ADL. 3=Patient will improve strength/tolerance for activity to enable patient to perform ADL's. OT Education/Plan Discharge Recommendations Plan/Recommendations: Continue POC Treatment Plan/Plan of Care Patient would benefit from OT for education, treatment and training to promote independence in ADL's, mobility, safety and/or upper extremity function for ADL' s. Plan of Care: ADL Retraining, Functional Mobility Treatment Duration: Mar 09, 2018 Frequency: 5 times per week Estimated Hrs Per Day: .25 hour per day Agreement: Yes Rehab Potential: Fair Time/GCodes Start Time: 12:30 Stop Time: 12:43 Total Time Billed (hr/min): 13 Billed Treatment Time 1 visit-EX 1 (13 min) GUI MCKEON Feb 27, 2018 12:49
--- NOTE | 2018-02-27 13:33 | Speech Therapy Progress Note ---
Therapy Progress Note Speech pathology received a call from the patient's RN, wondering if the patient would be re-evaluated on this date. The clinician directed the RN to the location of the clinician's evaluation on this date, approximately two hours prior. At this time, the patient remains appropriate for a puree consistency diet with nectar-thick liquid, as signs/symptoms of aspiration were demonstrated with mechanically altered and thin liquid consistencies throughout the evaluation. Speech pathology will re-assess the patient, as appropriate. The patient's niece requested additional [place] cups provided for the patient, as it is easier for the patient to consume liquids from a smaller cup. [place] cups were provided to the patient at this time by the clinician. While present, the speech pathologist attempted to re-assess the patient's swallowing for a second time on this date, however, she continued to nod off (demonstrating similar fatigue to the earlier evaluation). Due to this, PO was not provided by the clinician. The clinician dated the patient's appropriate diet consistency on the white board. DARWIN MULLEN Feb 27, 2018 13:33
[2018-02-27] MEDS ORDERED: PIPERACILLIN/TAZO 3.375 GM/D5W 100 ML IV SCH ×2 (15:00)
[2018-02-27] MEDS: RIVAROXABAN 15 MG TABLET (XARELTO) PO SCH (18:20)
[2018-02-28 00:29] VITALS: BP 102/56
[2018-02-28] MEDS: NS IV 500 ML 500 ML IV SCH ×2 (03:59→21:11)
[2018-02-28] MEDS: NITROGLYCERIN 2% OINT 1 GM UNIT DOSE PACKET TOP SCH ×3 (05:48→21:11)
[2018-02-28] MEDS: CATHETER FLUSH 10 ML SYR IV SCH ×3 (05:48→21:11)
[2018-02-28] MEDS: PANTOPRAZOLE 20 MG TABLET (PROTONIX) PO SCH (05:48)
[2018-02-28] MEDS ORDERED: TROUGH ORDER-PHARMACY XX NR (06:00)
[2018-02-28 07:00] LABS: BASOPHILS % (AUTO) 0 % (0-10); EOSINOPHILS # (AUTO) 0.2 10^3/uL (0.0-0.3); EOSINOPHILS % (AUTO) 1 % (0-10); HEMATOCRIT 29 % (35-52); HEMOGLOBIN 9.3 G/DL (11.5-16.0); LYMPHOCYTES % (AUTO) 7 % (12-44); MEAN CORPUSCULAR HEMOGLOBIN 26 PG (25-34); MEAN CORPUSCULAR HGB CONC 32 G/DL (32-36); MEAN CORPUSCULAR VOLUME 83 FL (80-99); MONOCYTES # (AUTO) 2.5 X 10^3 (0.0-1.0); MONOCYTES % (AUTO) 18 % (0-12); NEUTROPHILS # (AUTO) 10.1 X 10^3 (1.8-7.8); NEUTROPHILS % (AUTO) 73 % (42-75); PLATELET COUNT 128 10^3/uL (130-400); RED BLOOD COUNT 3.53 10^6/uL (4.35-5.85); RED CELL DISTRIBUTION WIDTH 18.3 % (10.0-14.5); WHITE BLOOD COUNT 13.8 10^3/uL (4.3-11.0)
[2018-02-28 07:23] LABS: ALANINE AMINOTRANSFERASE 52 U/L (0-55); ALBUMIN 2.7 GM/DL (3.2-4.5); ALKALINE PHOSPHATASE 59 U/L (40-136); BILIRUBIN,TOTAL 0.8 MG/DL (0.1-1.0); BUN/CREATININE RATIO 41; CALCIUM 8.4 MG/DL (8.5-10.1); CARBON DIOXIDE 25 MMOL/L (21-32); CHLORIDE 104 MMOL/L (98-107); CREATININE SERUM 0.81 MG/DL (0.60-1.30); GFR ESTIMATED > 60; GLUCOSE 100 MG/DL (70-105); MAGNESIUM 2.1 MG/DL (1.8-2.4); POTASSIUM 3.9 MMOL/L (3.6-5.0); SODIUM 139 MMOL/L (135-145); TOTAL PROTEIN 5.6 GM/DL (6.4-8.2)
[2018-02-28 07:31] LABS: VANCOMYCIN,TROUGH 7.5 UG/ML (10.0-20.0)
[2018-02-28 08:00] VITALS: BP 94/55
--- NOTE | 2018-02-28 08:02 | Diagnostic Imaging Report ---
Indication: Dyspnea. Discussion: Single portable upright view of the chest was obtained, comparison 02/27/2018. Cardiomegaly is again noted. Opacities within the medial right lung base are better seen on today's exam. This could represent atelectasis, pneumonia, or asymmetrical pulmonary edema. Recommend continued clinical correlation and radiographic followup. No pneumothorax or osseous abnormality. No linda pulmonary edema. Impression: 1. Cardiomegaly with persistent right lung base opacities. Dictated by: Dictated on workstation # [id number]
[2018-02-28] MEDS: meTOproloL SUCCINATE 50 MG (TOPROL XL) TAB PO SCH (08:59)
[2018-02-28] MEDS: SACUBITRIL/VALSARTAN 24/26 MG (ENTRESTO) TABLET PO SCH ×2 (08:59→21:11)
[2018-02-28] MEDS: ASPIRIN 81 MG CHEW (CHILDREN'S ASA) PO SCH (08:59)
[2018-02-28] MEDS: DOCUSATE SODIUM 100 MG (COLACE) CAP PO SCH ×2 (09:00→21:11)
[2018-02-28] MEDS: FUROSEMIDE 40 MG/4 ML INJ (LASIX) IVP SCH (09:00)
[2018-02-28] MEDS: DILTIAZEM 240 MG (CARDIZEM CD) CAP PO SCH (09:00)
[2018-02-28] MEDS: POLYETHYLENE GLYCOL 17 GM (MIRALAX) PACK PO SCH ×2 (09:01→21:11)
[2018-02-28] MEDS: VANCOMYCIN 500 MG/D5W 100 ML IV SCH ×2 (09:01)
[2018-02-28] MEDS: RT-ALBUTEROL SULF 2.5 MG/3 ML PRE-MIX VIAL INH SCH ×2 (10:15→19:52)
--- NOTE | 2018-02-28 10:16 | Physical Therapy Daily Note ---
PT Daily Note-Current Subjective Pt in bed, agreeable to ambulate. Pt denies pain. Reports she feels "a little unsteady but pretty good" with gait. Mental Status Patient Orientation: Person, Place, Time Attachments: Oxygen, IV Transfers Functional [place] Measure 0=Not Assessed/NA 4=Minimal Assistance 1=Total Assistance 5=Supervision or Setup 2=Maximal Assistance 6=Modified [place] 3=Moderate Assistance 7=Complete IndependenceIRFPAI Quality Coding Scale 6 Independent with activity with or without an assistive device 5 Patient requires set up or clean up by helper. Patient completes activity by themselves 4 Supervision or touching assist (CGA). [place] provide cues , steadying assist 3 The helper provides less than half the effort to complete the activity 2 The helper provides more than half the effort to complete the activity 1 Dependent. The helper does all the effort to complete an activity 7 Patient refused to complete or attempt activity 9 The patient did not perform the activity before the current illness or injury 88 Not attempted due to Medical conditions or safety concerns Transfers (B, C, W/C) (FIM): 4 Scootin Supine to/from Sit: 4 Sit to/from Stand: 4 Weight Bearing Right Lower Extremity: Right Full Weight Bearing Left Lower Extremity: Left Full Weight Bearing Gait Training Gait (FIM): 4 Distance (FIM): 3=150 ft Distance: 150 Gait Level of Assist: 4 Gait Persons Needed: 1 Gait Assistive Device: FWW Pt ambulates with flexed posture, unsteady but no linda LOB. VCS for safety with gait as Pt is mildly impulsive, especially with turning. Treatments Gait training with FWW. Pt returned to bed with rails up, alarm activated and O2 in situ, needs met. Assessment Current Status: Good Progress Pt tolerated well. Min A x 1 and VCS for safety with gait with FWW. PT Fdc Goals Patient Registration Clerk Goals PT Patient Registration Clerk Goals Time Frame: Mar 06, 2018 Transfers (B,C,W/C) (FIM): 4 Gait (FIM): 2 Gait distance (FIM): 4=521-73 ft Distance: 125' Gait Level of Assist: 4 Gait Assistive Device: FWW PT Plan Problem List Problem List: Activity Tolerance, Functional Strength, Safety, Balance, Gait, Transfer, Bed Mobility Treatment/Plan Treatment Plan: Continue Plan of Care Treatment Plan: Bed Mobility, Education, Functional Activity Larry, Functional Strength, Gait, Safety, Therapeutic Exercise, Transfers Treatment Duration: Mar 06, 2018 Frequency: 6 times per week Estimated Hrs Per Day: .5 hour per day Patient and/or Family Agrees t: Yes Safety Risks/Education Patient Education: Gait Training, Safety Issues Teaching Recipient: Patient Teaching Methods: Discussion Response to Teaching: Reinforcement Needed Time/GCodes Time In: 09 Time Out: 0939 Total Billed Treatment Time: 18 Total Billed Treatment 1, GT x 18' G Codes Necessary: ARIC Cruz DPT Feb 28, 2018 10:15
--- NOTE | 2018-02-28 10:40 | Cardiology Progress Note ---
Subjective Date Seen by Provider: Feb 28, 2018 Time Seen by Provider: 10:37 Subjective/Events-last exam patient is laying down in bed, lethargic, following commands. Denied any chest pain. Review of Systems General: No Chills, No Night Sweats; Fatigue, Malaise; No Appetite, No Other HEENT: No Head Aches, No Visual Changes, No Eye Pain, No Ear Pain, No Dysphasia , No Sinus Congestion, No Post Nasal Drip, No Sore Throat, No Other Pulmonary: No Dyspnea, No Cough, No Pleuritic Chest Pain, No Other Cardiovascular: No: Chest Pain, Palpitations, Orthopnea, Paroxysmal Noc. Dyspnea, Edema, Lt Headedness, Other Focused Exam Lactate Level 02/26/18 07:16: Lactic Acid Level 0.96 Objective-Cardiology Exam Last Set of Vital Signs Vital Signs 02/28/18 02/28/18 02/28/18 02/28/18 02/28/18 00:29 04:30 07:00 09:08 10:15 Temp 98.0 Pulse 71 Resp 18 B/P (MAP) 102/56 (71) Pulse Ox 95 O2 Delivery Nasal Cannula O2 Flow Rate 2.00 FiO2 24 Capillary Refill : Less Than 3 SecondsLess Than 3 Seconds I&O Intake and Output 02/28/18 00:00 Intake Total 810 ml Output Total 1100 ml Balance -290 ml Intake Oral 810 ml Output Urine Total 1100 ml # Voids 1 # Bowel Movements 1 General: Alert, Oriented X3, Cooperative, Mild Distress HEENT: Atraumatic, PERRLA Neck: Supple, No JVD, No Thyromegaly Lungs: Clear to Auscultation, Normal Air Movement Heart: Normal S1, Normal S2, No Murmurs, Other (Irregular rhythm) Abdomen: Normal Bowel Sounds, Soft, No Tenderness, No Hepatosplenomegaly, No Masses Extremities: No Clubbing, No Cyanosis, No Edema, Normal Pulses, No Tenderness/ Swelling Skin: No Rashes, No Breakdown, No Significant Lesion Neuro: Normal Tone, Sensation Intact Psych/Mental Status: Mood NL Results Lab Laboratory Tests 02/28/18 06:02 A/P-Cardiology Admission Diagnosis Acute CVA Paroxysmal atrial fibrillation Congestive heart failure Coronary artery disease Assessment/Plan 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 Elevated INR due to chronic rivaroxaban therapy. INR is elevated in most patients on Direct Xa inhibitors (especially rivaroxaban) and cannot be used to monitor therapy or adjust dose Acute on chronic systolic CHF, ischemic cardiomyopathy, repeat echocardiogram showed deterioration the left ventricular function with ejection fraction 10-15 percent, large pleural effusion. Pleural effusion, worse on x-ray, followed by medical service CAD. S/p mid RCA stent (Integrity 2.75x12) in early Oct 2013 following presentation with ac NSTEMI. The rest of the cors had diffuse mod disease with stenoses of up to 50-60%. Continue to monitor at this time MPI of 07/11/17 showed no ischemia of infarction and LVEF of 45% (subjectively felt to be higher) Apparently intolerant to ANTOINE-inhibitor and ARB due to worsening of renal function. This is being managed by Dr Alvarez Carotid u/s from January 09, 2015 showed bilat plaque at the carotid bifurcation with velocities suggestive of underlying stenosis in the range of 60-79% in the right ICA, and in the left ICA 0-40%, unchanged on subsequent carotid u/s of . Carotid u/s of January 2017 showed mod bilat carotid plaque Anemia diagnosed at time of hospitalization of Oct 2013. Etiology unclear. Stable post blood transfusions during hosp of Oct 2013 Hyperlipidemia, treated with atorvastatin and followed by Dr Alvarez CKD stage 2-3, monitor renal function H/O CVA in December 2014 Clinical Quality Measures DVT/VTE Risk/Contraindication: Risk Factor Score Per Nursin RFS Level Per Nursing on Admit: 4+=Very High Contraindications-Pharm: Other *list below* Stroke: Date of last known well: Feb 19, 2018 UNIQUE MCCARTNEY MD Feb 28, 2018 10:40
--- NOTE | 2018-02-28 11:39 | Progress Note-Hospitalist ---
Subjective HPI/CC On Admission Date Seen by Provider: Feb 28, 2018 Time Seen by Provider: 10:30 per family patient's speech is a little bit better she is able to get out several words at a timebut still hasconsiderable dysarthria. She voices no complaints and apparently been asking family about going home. They have not noted any respiratory distress with mild nonproductive cough. Focused Exam Lactate Level 02/26/18 07:16: Lactic Acid Level 0.96 Objective Exam Vital Signs Vital Signs Date Time Temp Pulse Resp B/P (MAP) Pulse Ox O2 Delivery O2 Flow Rate FiO2 02/28/18 10:15 95 Nasal Cannula 2.00 02/28/18 09:08 24 02/28/18 08:00 98.9 81 18 94/55 (68) Capillary Refill : Less Than 3 SecondsLess Than 3 Seconds General Appearance: No Apparent Distress, Chronically ill Respiratory: No Accessory Muscle Use, No Respiratory Distress, Other (by basilar rales without wheezing a few scattered rhonchi) Cardiovascular: No JVD, No Murmur, Irregularly Irregular Gastrointestinal: Normal Bowel Sounds, No Organomegaly, No Pulsatile Mass, Non Tender, Soft Neurologic/Psychiatric: Alert, Other (dysarthria per family's report improving. ) Skin: Pallor Results/Procedures Lab Laboratory Tests 02/28/18 06:02 Patient resulted labs reviewed. Assessment/Plan Assessment and Plan Assess & Plan/Chief Complaint a/P 1. Acute CVA withexpressive aphasia and dysarthria improving. 2. Bibasilar infiltrates possible aspiration pneumonia continue antibiotics and speech therapy with dysphasia precautions. 3. Persistent atrial fibrillation continue anticoagulant therapyand rate control medication per CV. Clinical Quality Measures DVT/VTE Risk/Contraindication: Risk Factor Score Per Nursin RFS Level Per Nursing on Admit: 4+=Very High Contraindications-Pharm: Other *list below* Stroke: Date of last known well: Feb 19, 2018 CROW MCLAUGHLIN MD Feb 28, 2018 11:39
[2018-02-28 12:00] VITALS: BP 97/59
[2018-02-28] MEDS: CEFEPIME 2 GM/NS 50 ML IVPB IV SCH ×2 (12:01)
[2018-02-28 15:48] VITALS: BP 101/59
[2018-02-28] MEDS: RIVAROXABAN 15 MG TABLET (XARELTO) PO SCH (17:57)
[2018-02-28 20:32] VITALS: BP 104/64
[2018-03-01] VITALS (7 sets, daily range): BP systolic 101–153; BP diastolic 54–73
[2018-03-01] MEDS: NITROGLYCERIN 2% OINT 1 GM UNIT DOSE PACKET TOP SCH ×3 (05:20→20:41)
[2018-03-01] MEDS: PANTOPRAZOLE 20 MG TABLET (PROTONIX) PO SCH (05:20)
[2018-03-01 05:33] LABS: BASOPHILS % (AUTO) 0 % (0-10); EOSINOPHILS # (AUTO) 0.4 10^3/uL (0.0-0.3); EOSINOPHILS % (AUTO) 4 % (0-10); HEMATOCRIT 30 % (35-52); HEMOGLOBIN 9.3 G/DL (11.5-16.0); LYMPHOCYTES # (AUTO) 1.1 X 10^3 (1.0-4.0); LYMPHOCYTES % (AUTO) 10 % (12-44); MEAN CORPUSCULAR HEMOGLOBIN 26 PG (25-34); MEAN CORPUSCULAR HGB CONC 31 G/DL (32-36); MEAN CORPUSCULAR VOLUME 84 FL (80-99); MONOCYTES # (AUTO) 2.3 X 10^3 (0.0-1.0); MONOCYTES % (AUTO) 20 % (0-12); NEUTROPHILS # (AUTO) 7.5 X 10^3 (1.8-7.8); NEUTROPHILS % (AUTO) 66 % (42-75); PLATELET COUNT 150 10^3/uL (130-400); RED BLOOD COUNT 3.63 10^6/uL (4.35-5.85); RED CELL DISTRIBUTION WIDTH 18.6 % (10.0-14.5); WHITE BLOOD COUNT 11.4 10^3/uL (4.3-11.0)
[2018-03-01 05:55] LABS: ALANINE AMINOTRANSFERASE 42 U/L (0-55); ALBUMIN 2.9 GM/DL (3.2-4.5); ALKALINE PHOSPHATASE 59 U/L (40-136); BILIRUBIN,TOTAL 0.8 MG/DL (0.1-1.0); BUN/CREATININE RATIO 42; CALCIUM 8.7 MG/DL (8.5-10.1); CARBON DIOXIDE 23 MMOL/L (21-32); CHLORIDE 105 MMOL/L (98-107); CREATININE SERUM 0.79 MG/DL (0.60-1.30); GFR ESTIMATED > 60; GLUCOSE 99 MG/DL (70-105); MAGNESIUM 2.3 MG/DL (1.8-2.4); PHOSPHORUS 2.5 MG/DL (2.3-4.7); POTASSIUM 4.4 MMOL/L (3.6-5.0); SODIUM 139 MMOL/L (135-145)
[2018-03-01] MEDS: CATHETER FLUSH 10 ML SYR IV SCH ×3 (05:57→20:41)
[2018-03-01] MEDS: VANCOMYCIN 500 MG/D5W 100 ML IV SCH ×2 (05:57)
[2018-03-01] MEDS: RT-ALBUTEROL SULF 2.5 MG/3 ML PRE-MIX VIAL INH SCH ×2 (06:50→19:52)
--- NOTE | 2018-03-01 07:20 | Diagnostic Imaging Report ---
Indication: Dyspnea. Discussion: Single portable upright view of the chest was obtained, comparison 02/28/2018. Cardiomegaly is again noted. Consolidation within the right lung base is stable. Suspect small bilateral pleural effusions. No pneumothorax. Impression: 1. Stable chest. Dictated by: Dictated on workstation # [id number]
[2018-03-01] MEDS: SACUBITRIL/VALSARTAN 24/26 MG (ENTRESTO) TABLET PO SCH ×2 (09:11→20:41)
[2018-03-01] MEDS: DOCUSATE SODIUM 100 MG (COLACE) CAP PO SCH ×2 (09:11→20:41)
[2018-03-01] MEDS: DILTIAZEM 240 MG (CARDIZEM CD) CAP PO SCH (09:12)
[2018-03-01] MEDS: meTOproloL SUCCINATE 50 MG (TOPROL XL) TAB PO SCH (09:12)
[2018-03-01] MEDS: FUROSEMIDE 40 MG/4 ML INJ (LASIX) IVP SCH (09:12)
[2018-03-01] MEDS: ASPIRIN 81 MG CHEW (CHILDREN'S ASA) PO SCH (09:12)
[2018-03-01] MEDS: POLYETHYLENE GLYCOL 17 GM (MIRALAX) PACK PO SCH ×2 (09:13→16:46)
--- NOTE | 2018-03-01 10:45 | Cardiology Progress Note ---
Subjective Date Seen by Provider: Mar 01, 2018 Time Seen by Provider: 10:44 Subjective/Events-last exam Patient is laying down in bed, no significant dyspnea, still having slurred speech. No chest pain. Review of Systems General: No Chills, No Night Sweats, No Fatigue, No Malaise, No Appetite, No Other Pulmonary: No Dyspnea, No Cough, No Pleuritic Chest Pain, No Other Cardiovascular: No: Chest Pain, Palpitations, Orthopnea, Paroxysmal Noc. Dyspnea, Edema, Lt Headedness, Other Objective-Cardiology Exam Last Set of Vital Signs Vital Signs 02/28/18 03/01/18 09:08 08:00 Temp 98.1 Pulse 78 Resp 18 B/P (MAP) 110/73 (85) Pulse Ox 99 O2 Delivery Nasal Cannula O2 Flow Rate 1.00 FiO2 24 Capillary Refill : Less Than 3 SecondsLess Than 3 Seconds I&O Intake and Output 03/01/18 00:00 Intake Total 950 ml Output Total 1300 ml Balance -350 ml Intake Oral 800 ml IV Total 150 ml Output Urine Total 1300 ml General: Alert, Oriented X3, Cooperative, Mild Distress HEENT: Atraumatic, PERRLA Neck: Supple, No JVD, No Thyromegaly Lungs: Clear to Auscultation, Normal Air Movement Heart: Normal S1, Normal S2, No Murmurs, Other (Irregular rhythm) Abdomen: Normal Bowel Sounds, Soft, No Tenderness, No Hepatosplenomegaly, No Masses Extremities: No Clubbing, No Cyanosis, No Edema, Normal Pulses, No Tenderness/ Swelling Skin: No Rashes, No Breakdown, No Significant Lesion Neuro: Normal Tone, Sensation Intact Psych/Mental Status: Mood NL Results Lab Laboratory Tests 03/01/18 05:12 A/P-Cardiology Admission Diagnosis Acute CVA Paroxysmal atrial fibrillation Congestive heart failure Coronary artery disease Assessment/Plan 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 Elevated INR due to chronic rivaroxaban therapy. INR is elevated in most patients on Direct Xa inhibitors (especially rivaroxaban) and cannot be used to monitor therapy or adjust dose Acute on chronic systolic CHF, ischemic cardiomyopathy, repeat echocardiogram showed deterioration the left ventricular function with ejection fraction 10-15 percent, large pleural effusion. BNP is worse, continue on IV Lasix and monitor her tolerance and response Pleural effusion, chest x-ray today did not show significant changes. Continue on diuretics and monitor tolerance and response CAD. S/p mid RCA stent (Integrity 2.75x12) in early Oct 2013 following presentation with ac NSTEMI. The rest of the cors had diffuse mod disease with stenoses of up to 50-60%. Continue to monitor at this time MPI of 07/11/17 showed no ischemia of infarction and LVEF of 45% (subjectively felt to be higher) Apparently intolerant to ANTOINE-inhibitor and ARB due to worsening of renal function. This is being managed by Dr Alvarez Carotid u/s from January 09, 2015 showed bilat plaque at the carotid bifurcation with velocities suggestive of underlying stenosis in the range of 60-79% in the right ICA, and in the left ICA 0-40%, unchanged on subsequent carotid u/s of . Carotid u/s of January 2017 showed mod bilat carotid plaque Anemia diagnosed at time of hospitalization of Oct 2013. Etiology unclear. Stable post blood transfusions during hosp of Oct 2013 Hyperlipidemia, treated with atorvastatin and followed by Dr Alvarez CKD stage 2-3, monitor renal function H/O CVA in December 2014 Clinical Quality Measures DVT/VTE Risk/Contraindication: Risk Factor Score Per Nursin RFS Level Per Nursing on Admit: 4+=Very High Contraindications-Pharm: Other *list below* Stroke: Date of last known well: Feb 19, 2018 UNIQUE MCCARTNEY MD Mar 01, 2018 10:45
[2018-03-01] MEDS: CEFEPIME 2 GM/NS 50 ML IVPB IV SCH ×2 (11:32)
--- NOTE | 2018-03-01 11:50 | Progress Note-Hospitalist ---
Subjective HPI/CC On Admission Date Seen by Provider: Mar 01, 2018 Time Seen by Provider: 10:15 per family patient's speech is a little bit better she is able to get out several words at a timebut still hasconsiderable dysarthria. She voices no complaints and apparently been asking family about going home. They have not noted any respiratory distress with mild nonproductive cough. Subjective/Events-last exam Patient appears to be in no acute distress denying chest pain or shortness of breath at rest. She still has significant expressive aphasia with dysarthria and is difficult to understand. Objective Exam Vital Signs Vital Signs Date Time Temp Pulse Resp B/P (MAP) Pulse Ox O2 Delivery O2 Flow Rate FiO2 03/01/18 08:00 Nasal Cannula 2.00 03/01/18 08:00 98.1 78 18 110/73 (85) 99 02/28/18 09:08 24 Capillary Refill : Less Than 3 SecondsLess Than 3 Seconds General Appearance: No Apparent Distress, Chronically ill, Thin Respiratory: No Accessory Muscle Use, No Respiratory Distress, Other (Chest relatively clear anteriorly there are diminished breath sounds in both bases with a few rales no wheezing is noted) Cardiovascular: Regular Rate, Rhythm, No Gallop, No JVD, No Murmur Extremity: Normal Range of Motion, Other (Trace bilateral edema) Neurologic/Psychiatric: Alert, Other (Expressive aphasia and dysarthria unchanged from yesterday patient able to move all extremities unchanged from yesterday) Results/Procedures Lab Laboratory Tests 03/01/18 05:12 Patient resulted labs reviewed. Assessment/Plan Assessment and Plan Assess & Plan/Chief Complaint a/P 1. Acute CVA with expressive aphasia and dysarthria improving. 2. Bibasilar infiltrates possible aspiration pneumonia continue antibiotics and speech therapy with dysphasia precautions. 3. Persistent atrial fibrillation continue anticoagulant therapy and rate control medication per CV. 4. History of severe ischemic cardiomyopathy ejection fraction 10-[address] Jackson with worsening BNP although not clinically different in regards to heart failure compared to yesterday continue IV diuretic defer to cardiology. Long-term prognosis poor Clinical Quality Measures DVT/VTE Risk/Contraindication: Risk Factor Score Per Nursin RFS Level Per Nursing on Admit: 4+=Very High Contraindications-Pharm: Other *list below* Stroke: Date of last known well: Feb 19, 2018 CROW MCLAUGHLIN MD Mar 01, 2018 11:50
[2018-03-01] MEDS: RIVAROXABAN 15 MG TABLET (XARELTO) PO SCH (17:15)
[2018-03-02 04:59] VITALS: BP 114/72
[2018-03-02] MEDS ORDERED: TROUGH ORDER-PHARMACY XX NR (06:00)
[2018-03-02 06:13] LABS: BASOPHILS % (AUTO) 0 % (0-10); EOSINOPHILS # (AUTO) 0.4 10^3/uL (0.0-0.3); EOSINOPHILS % (AUTO) 4 % (0-10); HEMATOCRIT 28 % (35-52); HEMOGLOBIN 8.8 G/DL (11.5-16.0); LYMPHOCYTES % (AUTO) 10 % (12-44); MEAN CORPUSCULAR HEMOGLOBIN 26 PG (25-34); MEAN CORPUSCULAR HGB CONC 32 G/DL (32-36); MEAN CORPUSCULAR VOLUME 83 FL (80-99); MEAN PLATELET VOLUME 12.7 FL (7.4-10.4); MONOCYTES # (AUTO) 2.1 X 10^3 (0.0-1.0); MONOCYTES % (AUTO) 21 % (0-12); NEUTROPHILS # (AUTO) 6.2 X 10^3 (1.8-7.8); NEUTROPHILS % (AUTO) 65 % (42-75); PLATELET COUNT 145 10^3/uL (130-400); RED BLOOD COUNT 3.35 10^6/uL (4.35-5.85); RED CELL DISTRIBUTION WIDTH 18.2 % (10.0-14.5); WHITE BLOOD COUNT 9.7 10^3/uL (4.3-11.0)
[2018-03-02 06:35] LABS: ALANINE AMINOTRANSFERASE 38 U/L (0-55); ALBUMIN 2.8 GM/DL (3.2-4.5); ALKALINE PHOSPHATASE 60 U/L (40-136); BILIRUBIN,TOTAL 0.8 MG/DL (0.1-1.0); BUN/CREATININE RATIO 46; CALCIUM 8.5 MG/DL (8.5-10.1); CARBON DIOXIDE 24 MMOL/L (21-32); CHLORIDE 106 MMOL/L (98-107); CREATININE SERUM 0.78 MG/DL (0.60-1.30); GFR ESTIMATED > 60; GLUCOSE 102 MG/DL (70-105); MAGNESIUM 2.1 MG/DL (1.8-2.4); PHOSPHORUS 2.6 MG/DL (2.3-4.7); POTASSIUM 3.9 MMOL/L (3.6-5.0); SODIUM 140 MMOL/L (135-145); TOTAL PROTEIN 5.6 GM/DL (6.4-8.2)
[2018-03-02] MEDS: RT-ALBUTEROL SULF 2.5 MG/3 ML PRE-MIX VIAL INH SCH ×2 (06:35→19:19)
[2018-03-02] MEDS: CATHETER FLUSH 10 ML SYR IV SCH ×2 (06:40→14:03)
[2018-03-02] MEDS: NITROGLYCERIN 2% OINT 1 GM UNIT DOSE PACKET TOP SCH ×3 (06:40→20:58)
[2018-03-02 06:41] LABS: VANCOMYCIN,TROUGH 11.1 UG/ML (10.0-20.0)
[2018-03-02] MEDS: VANCOMYCIN 500 MG/D5W 100 ML IV SCH ×2 (06:52)
--- NOTE | 2018-03-02 07:31 | Pulmonary Progress Note ---
Subjective Time Seen by Provider: 09:41 Subjective/Events-last exam No complications noted. Exam Exam Vital Signs Date Time Temp Pulse Resp B/P (MAP) Pulse Ox O2 Delivery O2 Flow Rate FiO2 03/02/18 06:37 93 Room Air 03/02/18 04:59 98.9 70 18 114/72 (86) 96 Nasal Cannula 1.00 03/02/18 01:00 83 03/01/18 23:34 98.7 74 18 112/71 (85) 95 Nasal Cannula 1.00 03/01/18 20:21 Nasal Cannula 2.00 03/01/18 20:00 98.6 72 18 105/60 (75) 98 Nasal Cannula 1.00 03/01/18 19:52 97 Nasal Cannula 1.00 03/01/18 19:00 71 03/01/18 16:00 98.3 81 18 153/67 (95) 100 Nasal Cannula 1.00 03/01/18 13:00 78 03/01/18 12:00 97.8 74 18 122/54 (76) 97 Nasal Cannula 1.00 03/01/18 08:00 Nasal Cannula 2.00 03/01/18 08:00 98.1 78 18 110/73 (85) 99 Nasal Cannula 1.00 I & O 03/02/18 07:00 Intake Total 910 ml Output Total 400 ml Balance 510 ml General Appearance: No Apparent Distress, Thin HEENT: Normal ENT Inspection Neck: Full Range of Motion, Normal Inspection Respiratory: Chest Non Tender, No Accessory Muscle Use, No Respiratory Distress Cardiovascular: Irregularly Irregular Capillary Refill: Less Than 3 Seconds Gastrointestinal: non tender, soft Extremity: Normal Capillary Refill, Normal Inspection Neurologic/Psychiatric: Alert, No Motor/Sensory Deficits, Normal Mood/Affect, Other (subtle poor recall, dysarthria) Skin: Normal Color, Warm/Dry Lymphatic: No Adenopathy Results Lab Laboratory Tests 03/01/18 05:12 03/02/18 05:35 Assessment/Plan Assessment/Plan CVA /R [place] non-hemorrhagic stroke on 02/19/18 Dysphagia -speech therapy is following -Pt is on dysphagia diet -Aspiration precautions aspiration pneumonia -Zosyn, to Vanco. -Cultures are negative thus far -daily labs, and CXR metabolic acidosis-- improved CHF EF is 35-40% SOB with pulmonary edema with hypoxia -monitor close -repeat CXR possible JOANNE -will schedule out patient sleep study at f/u appt with me. Persistent AFIB -On Xarelto CXR and labs reviewed 232 SHAHBAZ NOLAN DO Mar 02, 2018 07:31
--- NOTE | 2018-03-02 07:56 | Progress Note (SOAP) ---
Subjective Time Seen by Provider: 07:55 Subjective/Events-last exam Patient is talking better. Dysarthria. Patient chest x-ray yesterday looks worse with pneumonia. BNP still elevated. Clinically knee states that patient is getting around better Patient has chronic atrial fibrillation. To reevaluate for rehabilitation. If not expected will go to [facility] Objective Exam Vital Signs Date Time Temp Pulse Resp B/P (MAP) Pulse Ox O2 Delivery O2 Flow Rate FiO2 03/02/18 06:37 93 Room Air 03/02/18 04:59 98.9 70 18 114/72 (86) 96 Nasal Cannula 1.00 03/02/18 01:00 83 03/01/18 23:34 98.7 74 18 112/71 (85) 95 Nasal Cannula 1.00 03/01/18 20:21 Nasal Cannula 2.00 03/01/18 20:00 98.6 72 18 105/60 (75) 98 Nasal Cannula 1.00 03/01/18 19:52 97 Nasal Cannula 1.00 03/01/18 19:00 71 03/01/18 16:00 98.3 81 18 153/67 (95) 100 Nasal Cannula 1.00 03/01/18 13:00 78 03/01/18 12:00 97.8 74 18 122/54 (76) 97 Nasal Cannula 1.00 03/01/18 08:00 Nasal Cannula 2.00 03/01/18 08:00 98.1 78 18 110/73 (85) 99 Nasal Cannula 1.00 I & O 03/02/18 07:00 Intake Total 910 ml Output Total 400 ml Balance 510 ml Capillary Refill : Less Than 3 SecondsLess Than 3 Seconds General Appearance: No Apparent Distress, Thin HEENT: Normal ENT Inspection Neck: Full Range of Motion, Normal Inspection Respiratory: No Accessory Muscle Use, No Respiratory Distress, Decreased Breath Sounds Cardiovascular: Irregularly Irregular Gastrointestinal: non tender, soft Results Lab Laboratory Tests 03/02/18 05:35 Laboratory Tests 03/02/18 05:35: White Blood Count 9.7, Red Blood Count 3.35L, Hemoglobin 8.8L, Hematocrit 28L, Mean Corpuscular Volume 83, Mean Corpuscular Hemoglobin 26, Mean Corpuscular Hemoglobin Concent 32, Red Cell Distribution Width 18.2H, Platelet Count 145, Mean Platelet Volume 12.7H, Neutrophils (%) (Auto) 65, Lymphocytes (%) (Auto) 10L, Monocytes (%) (Auto) 21H, Eosinophils (%) (Auto) 4, Basophils (%) (Auto) 0 , Neutrophils # (Auto) 6.2, Lymphocytes # (Auto) 1.0, Monocytes # (Auto) 2.1H, Eosinophils # (Auto) 0.4H, Basophils # (Auto) 0.0, Sodium Level 140, Potassium Level 3.9, Chloride Level 106, Carbon Dioxide Level 24, Anion Gap 10, Blood Urea Nitrogen 36H, Creatinine 0.78, Estimat Glomerular Filtration Rate > 60, BUN /Creatinine Ratio 46, Glucose Level 102, Calcium Level 8.5, Phosphorus Level 2.6 , Magnesium Level 2.1, Total Bilirubin 0.8, Aspartate Amino Transf (AST/SGOT) 23 , Alanine Aminotransferase (ALT/SGPT) 38, Alkaline Phosphatase 60, Total Protein 5.6L, Albumin 2.8L, Vancomycin Level Trough 11.1 Microbiology 02/26/18 Blood Culture - Preliminary, Resulted No growth 02/26/18 Urine Culture - Final, Complete NO GROWTH Assessment/Plan Assessment/Plan Assess & Plan/Chief Complaint CVA. A. fib. CHF. Dysarthria. Coronary artery disease. Chest x-ray looks worse the other day. . 02/24/18. Acute CVA. A. fib. CHF. Dysarthria. Chest x-ray ordered this morning very Coronary artery disease. Speech is improving. kam Is not here this morning. . 02/25/18. Acute CVA. A. fib. CHF. Dysarthria. Coronary artery disease. Patient weak this a.m. BNP coming down.. . 02/26/18. Acute CVA. A. fib. CHF. Liver enzymes elevated area Hold Lipitor. BNP elevated. Patient put on chest oh. Patient given Lasix IV today Patient to go to [facility] probably tomorrow. 02/27/18. Acute CVA. A. fib. Pulmonary edema. Elevated liver tests improving. BNP over 1700 better. Increased the dose of Lasix. Pneumonia. . 03/02/18. Pneumonia. Acute CVA. Dysarthria. A. fib. Pulmonary edema. Patient clinically improving. Patient is speaking better. According to niece patient getting around better Clinical Quality Measures Admission Status Admission Dx CVA. Pulmonary edema. Pneumonia. Short of breath. Mumbled speech. Atrial fibrillation. Cataracts DVT/VTE Risk/Contraindication: Risk Factor Score Per Nursin RFS Level Per Nursing on Admit: 4+=Very High Contraindications-Pharm: Other *list below* Stroke: Date of last known well: Feb 19, 2018 ARGENIS JERRY DO Mar 02, 2018 07:56
[2018-03-02 08:00] VITALS: BP 105/69
--- NOTE | 2018-03-02 08:06 | Diagnostic Imaging Report ---
Clinical indication: Patient with shortness of air. Exam: Portable chest x-ray upright view. Comparisons: Chest x-ray dated 03/01/2018. Findings: Stable cardiomegaly. There is no significant pulmonary vascular congestion. There is slight progression of consolidation in left lung base. There is slight improved aeration of the right lung base with continued lung infiltrates remaining. There is concern for left pleural effusion and small right pleural effusion. There is no pneumothorax. The remainder of this exam shows no significant interval change compared to the prior study of comparison. Impression: 1.: Slight improved aeration of the right lung base with slight progression of left lung base consolidation. These findings are related to atelectasis and/or lung infiltrate/infectious process. 2: Stable concern for small bilateral pleural effusions. 3: Cardiomegaly with no significant pulmonary vascular congestion. Dictated by: Dictated on workstation # [id number]
[2018-03-02] MEDS: FUROSEMIDE 40 MG/4 ML INJ (LASIX) IVP SCH (08:57)
[2018-03-02] MEDS: DILTIAZEM 240 MG (CARDIZEM CD) CAP PO SCH (08:58)
[2018-03-02] MEDS: SACUBITRIL/VALSARTAN 24/26 MG (ENTRESTO) TABLET PO SCH ×2 (08:58→20:57)
[2018-03-02] MEDS: DOCUSATE SODIUM 100 MG (COLACE) CAP PO SCH ×2 (08:58→20:57)
[2018-03-02] MEDS: POLYETHYLENE GLYCOL 17 GM (MIRALAX) PACK PO SCH ×2 (08:58→20:58)
[2018-03-02] MEDS: ASPIRIN 81 MG CHEW (CHILDREN'S ASA) PO SCH (08:58)
[2018-03-02] MEDS: PANTOPRAZOLE 20 MG TABLET (PROTONIX) PO SCH (08:58)
[2018-03-02] MEDS: meTOproloL SUCCINATE 50 MG (TOPROL XL) TAB PO SCH (08:58)
--- NOTE | 2018-03-02 09:11 | Progress Note-Cardiology ---
Cardiology SOAP Progress Note Subjective: No cp or palp or syncope. Shortness of breath improved Objective: I&O/Vital Signs 03/01/18 03/02/18 03/02/18 03/02/18 23:34 01:00 04:59 06:37 Temp 98.7 98.9 Pulse 74 83 70 Resp 18 18 B/P (MAP) 112/71 (85) 114/72 (86) Pulse Ox 95 96 93 O2 Delivery Nasal Cannula Nasal Cannula Room Air O2 Flow Rate 1.00 1.00 03/02/18 07:00 Pulse 80 03/02/18 00:00 Intake Total 700 ml Output Total 400 ml Balance 300 ml Weight (Pounds): 88 Weight (Ounces): 2.0 Weight (Calculated Kilograms): 39.805888 Constitutional: AAO x 3, well-developed, other (thin appearing) Respiratory: No accessory muscle use; lungs clear to percussion, lungs clear to auscultation Cardiovascular: irregularly irregular, S1 and S2, systolic murmur (soft BRIGID at card base) Gastrointestional: No tender; soft; No guarding, No rebound; audible bowel sounds Extremities: No clubbing, No cyanosis, No significant edema Neurologic/Psychiatric: other (dysrthria; move all limbs equally; alert and oriented) Skin: No rash on exposed areas, No ulcerations on exposed areas Results/Procedures: Labs Laboratory Tests 03/02/18 05:35: White Blood Count 9.7, Red Blood Count 3.35L, Hemoglobin 8.8L, Hematocrit 28L, Mean Corpuscular Volume 83, Mean Corpuscular Hemoglobin 26, Mean Corpuscular Hemoglobin Concent 32, Red Cell Distribution Width 18.2H, Platelet Count 145, Mean Platelet Volume 12.7H, Neutrophils (%) (Auto) 65, Lymphocytes (%) (Auto) 10L, Monocytes (%) (Auto) 21H, Eosinophils (%) (Auto) 4, Basophils (%) (Auto) 0 , Neutrophils # (Auto) 6.2, Lymphocytes # (Auto) 1.0, Monocytes # (Auto) 2.1H, Eosinophils # (Auto) 0.4H, Basophils # (Auto) 0.0, Sodium Level 140, Potassium Level 3.9, Chloride Level 106, Carbon Dioxide Level 24, Anion Gap 10, Blood Urea Nitrogen 36H, Creatinine 0.78, Estimat Glomerular Filtration Rate > 60, BUN /Creatinine Ratio 46, Glucose Level 102, Calcium Level 8.5, Phosphorus Level 2.6 , Magnesium Level 2.1, Total Bilirubin 0.8, Aspartate Amino Transf (AST/SGOT) 23 , Alanine Aminotransferase (ALT/SGPT) 38, Alkaline Phosphatase 60, Total Protein 5.6L, Albumin 2.8L, Vancomycin Level Trough 11.1 Microbiology 02/26/18 Blood Culture - Preliminary, Resulted No growth 02/26/18 Urine Culture - Final, Complete NO GROWTH Laboratory Tests 03/01/18 05:12 03/02/18 05:35 A/P: Assessment: R [place] non-hemorrhagic stroke on 02/19/18 - Medical Service managing Chronic persistent A fib, first diagnosed in Oct 2013, rate currently not well controlled Chronic rivaroxaban therapy for stroke prophylaxis. Elevated INR due to chronic rivaroxaban therapy. INR is elevated in most patients on Direct Xa inhibitors ( especially rivaroxaban) and cannot be used to monitor therapy or adjust dose Acute on chronic systolic CHF, clinically improved, but still considerable BNP elevation CAD. S/p mid RCA stent (Integrity 2.75x12) in early Oct 2013 following presentation with ac NSTEMI. The rest of the cors had diffuse mod disease with stenoses of upto 50-60%. MPI of 07/11/17 showed no ischemia of infarction and LVEF of 45% (subjectively felt to be higher) Ischemic cm. Cath of 11/08/13, prior to PCI, showed LVEF 35-40% and elev LVEDP Echocardiogram of 02/26/18: LVEF 10-15% (deterioration compared to previous), PASP 40 mm Hg. (essentially unchanged compaed to echo of December 2014) Carotid u/s from January 09, 2015 showed bilat plaque at the carotid bifurcation with velocities suggestive of underlying stenosis in the range of 60-79% in the right ICA, and in the left ICA 0-40%, unchanged on subsequent carotid u/s of . Carotid u/s of January 2017 showed mod bilat carotid plaque Ch anemia of undetermined etiology, being managed by Dr Alvarez Hyperlipidemia, treated with atorvastatin and followed by Dr Alvarez CKD stage 2-3 H/O CVA in December 2014 Plan: * I discussed her case with Dr Alvarez. Agree with Luis Enrique that she seems to be tolerating well * Conitnue diuretic therapy * Monitor labs * Medical Svce to manage stroke Clinical Quality Measures Stroke: Date of last known well: Feb 19, 2018 RONNI YEE MD FACP FAC CCDS Mar 02, 2018 09:11
--- NOTE | 2018-03-02 10:02 | Speech Therapy Daily Note ---
Speech Daily Progress Note Subjective Date Seen by Provider: Mar 02, 2018 Time Seen by Provider: 09:25 The patient was seated in recliner, sleeping upon entrance. The patient greeted the clinician and was agreeable to participation in the dysphagia and speech treatment session. Objective Dysphagia: Thin Liquid (cup sip): The patient demonstrated an immediate, rigorous cough with cup sip of thin liquid provided. Per patient, "well that went right down the wrong pipe!" [place]- Thick Liquid: No signs/symptoms of aspiration were demonstrated with multiple trials of nectar-thick liquid (six ounces total). The patient's vocal quality remained clear. Puree: No signs/symptoms of aspiration were demonstrated with multiple trials of puree consistency. Mechanical Soft: In attempts to upgrade the patient's solid consistency, a heidy cracker was crushed and placed in puree (vanilla pudding). The patient demonstrated extreme fatigue with mastication. The patient displayed an immediate cough upon swallowing one of four bites. The patient deferred additional trials. Recommendations: The patient should continue on her current diet consistency recommendations. Speech: Oral Motor Exercises (speech): The patient's speech has demonstrated limited improvement since the time of onset, remaining less than 50% intelligible in known contexts. The patient displays fair accuracy with the exercises, however, requires maximum clinician cueing. Assessment Assessment Current Status: Poor Progress Treatment Plan Continue Plan of Care Speech Short Term Goals Short Term Goals Short Term Goals 1. The patient will demonstrate 60% accuracy with repetition of single and multi -syllabic bilabial words. 2. The patient will display 75% accuracy with oral motor exercises. 3. The patient will tolerate 10/10 bolus trials with nectar-thick liquids without signs/symptoms of aspiration. Time Frame-STG: Three Days Speech Quality Control Supervisor Goals Quality Control Supervisor Goals 1. The patient will display increased intelligibility through expressive communication. 2. The patient will tolerate the least restrictive diet without signs/symptoms of aspiration. Time Frame: One Week Speech-Plan Treatment Plan Speech Therapy Treatment Plan: Continue Plan of Care Continue skilled speech pathology therapy to target improved intelligibility. Treatment Duration: Mar 02, 2018 Frequency: 3 times per week Estimated Hrs Per Day: .5 hour per day Rehab Potential: Fair Safety Risks/Education Teaching Recipient: Patient Teaching Methods: Discussion Response to Teaching: Reinforcement Needed Education Topics Provided: Results, Recommendations. Discharge Recommendations Nursing Home (TCU/NH) (The patient continues to remain most appropriate for intermediate placement following discharge. The patient fatigues quickly with limited therapy.) Time Speech Therapy Time In: 09:25 Speech Therapy Time Out: 09:45 Total Billed Time: 20 Billed Treatment Time 1, DYST (10 minutes) 1, SLTS (10 minutes) DARWIN MULLEN Mar 02, 2018 10:02
--- NOTE | 2018-03-02 10:29 | Physical Therapy Daily Note ---
PT Daily Note-Current Subjective Patient in recliner pre tx, agrees to PT, no complaints of pain. Patient in slumped posture and slid down in chair. Appearance Patient BTB post tx with nurse call, phone, tray, bed alarm on. Mental Status Patient Orientation: Person, Non-Verbal/Aphasic Transfers Functional [place] Measure 0=Not Assessed/NA 4=Minimal Assistance 1=Total Assistance 5=Supervision or Setup 2=Maximal Assistance 6=Modified [place] 3=Moderate Assistance 7=Complete IndependenceIRFPAI Quality Coding Scale 6 Independent with activity with or without an assistive device 5 Patient requires set up or clean up by helper. Patient completes activity by themselves 4 Supervision or touching assist (CGA). [place] provide cues , steadying assist 3 The helper provides less than half the effort to complete the activity 2 The helper provides more than half the effort to complete the activity 1 Dependent. The helper does all the effort to complete an activity 7 Patient refused to complete or attempt activity 9 The patient did not perform the activity before the current illness or injury 88 Not attempted due to Medical conditions or safety concerns Transfers (B, C, W/C) (FIM): 4 Scootin Rollin Supine to/from Sit: 5 Sit to/from Stand: 4 Bed to/from Chair: 4 Patient performs transfers with min assist, cues for hand placement and safety. Weight Bearing Right Lower Extremity: Right Full Weight Bearing Left Lower Extremity: Left Full Weight Bearing Gait Training Gait (FIM): 2 Distance: 70' Gait Level of Assist: 3 Gait Persons Needed: 1 Gait Assistive Device: FWW Patient ambulated 70' with min assist. She has uncoordinated ambulation and tends to keep walker too far out in front but she has improved in both of these areas. Patient tends to try to ambulate quickly and is unsafe and needs min assist to maintain her balance. Patient fatigues very quickly and could only ambulate a short distance before indicating that she needed to go back to the bed. Patient seemed exhausted after ambulating and could perform only one exercise in bed after that. Exercises Supine Ex: Heel Slides Supine Reps: 15 Treatments bed mobility and transfers, ambulation, functional strengthening Assessment Current Status: Fair Progress Improved coordination during ambulation but patient fatigues very quickly. She can only perform activity for a few minutes at a time. PT Assisted Goals Supervisor Electronics Testing Goals PT Assisted Goals Time Frame: Mar 06, 2018 Transfers (B,C,W/C) (FIM): 4 Gait (FIM): 2 Gait distance (FIM): 2=865-97 ft Distance: 125' Gait Level of Assist: 4 Gait Assistive Device: FWW PT Plan Problem List Problem List: Activity Tolerance, Functional Strength, Safety, Balance, Gait, Transfer, Bed Mobility Treatment/Plan Treatment Plan: Continue Plan of Care Treatment Plan: Bed Mobility, Education, Functional Activity Larry, Functional Strength, Gait, Safety, Therapeutic Exercise, Transfers Treatment Duration: Mar 06, 2018 Frequency: 6 times per week Estimated Hrs Per Day: .5 hour per day Patient and/or Family Agrees t: Yes Safety Risks/Education Patient Education: Gait Training, Transfer Techniques, Correct Positioning, Safety Issues Teaching Recipient: Patient Teaching Methods: Demonstration, Discussion Response to Teaching: Reinforcement Needed Time/GCodes Time In: 1007 Time Out: 1018 Total Billed Treatment Time: 11 Total Billed Treatment 1 visit GT 11' JESUS CHACON PT Mar 02, 2018 10:29
[2018-03-02] MEDS: CEFEPIME 2 GM/NS 50 ML IVPB IV SCH ×2 (11:10)
[2018-03-02 12:00] VITALS: BP 101/52
--- NOTE | 2018-03-02 12:02 | Occupational Ther Daily Note ---
OT Current Status-Daily Note Subjective Pt alert, lying in bed. Visitor present in room. Pt agrees to therapy. Uses vocalization, hand and head gestures to communicate. Mental Status/Objective Patient Orientation: Person, Place, Non-Verbal/Aphasic, Time, Situation Functional [place] Measure 0=Not Assessed/NA 4=Minimal Assistance 1=Total Assistance 5=Supervision or Setup 2=Maximal Assistance 6=Modified [place] 3=Moderate Assistance 7=Complete [place] Attachments: IV ADL-Treatment Pt and visitor reported that pt had sponge bath at 0400 and that visitor had given pt wash cloth to wash face. Pt declined washing up for therapy. Did agree to sitting on EOB and brushing teeth. Supine to sitting EOB with SBA. Pt required assist to squeeze out toothpaste, making sure tube was full at top so pt could squeeze. Able to complete brushing teeth with SBA. Pt then indicated need for bathroom. CGA using FWW to ambulate to bathroom and transfer to toilet. Pt rushing to get there, verbal cues to slow down. Assist to hike pants down over hips. Pt cleansed self with CGA. Hiked pants over hips with CGA using FWW and grabbars. Pt then ambulated to recliner to eat lunch. Pt able to hold onto utensil to feed self, using smaller cup to drink with. Pt used hand gestures to indicate she was done with therapy and wanted HALL to leave. Pt took increased time to complete task, fatigues easily. After therapy, pt sitting in recliner with call light/phone in reach. Visitor present in room. Safety measures in place. Eating (FIM): 5 Grooming (FIM): 5 Toileting (FIM): 4 Transfers (B, C, W/C) (FIM): 4 Toilet/Commode Transfer (FIM): 4 OT Short Term Goals Short Term Goals 1=Demonstrate adherence to instructed precautions during ADL tasks. 2=Patient will verbalize/demonstrate understanding of assistive devices/ modifications for ADL. 3=Patient will improve strength/tolerance for activity to enable patient to perform ADL's. OT Lace Winder Goals Jail Goals Time Frame: Mar 09, 2018 Eating (FIM): 6 Grooming(FIM): 6 Bathing(FIM): 5 Upper Body Dressing(FIM): 6 Lower Body Dressing(FIM): 6 Toileting(FIM): 6 Transfers (B,C,W/C) (FIM): 6 Toilet/Commode Transfer(FIM): 6 Shower Transfer(FIM): 5 Additional Goals: 1-Demonstrate ADL Tasks, 2-Verbalize Understanding, 3- ImproveStrength/Larry 1=Demonstrate adherence to instructed precautions during ADL tasks. 2=Patient will verbalize/demonstrate understanding of assistive devices/ modifications for ADL. 3=Patient will improve strength/tolerance for activity to enable patient to perform ADL's. OT Education/Plan Discharge Recommendations Plan/Recommendations: Continue POC Treatment Plan/Plan of Care Patient would benefit from OT for education, treatment and training to promote independence in ADL's, mobility, safety and/or upper extremity function for ADL' s. Plan of Care: ADL Retraining, Functional Mobility Treatment Duration: Mar 09, 2018 Frequency: 5 times per week Estimated Hrs Per Day: .25 hour per day Agreement: Yes Rehab Potential: Fair Time/GCodes Start Time: 11:15 Stop Time: 11:40 Total Time Billed (hr/min): 25 Billed Treatment Time 1 visit-ADL 2 (25 min) GUI MCKEON Mar 02, 2018 12:02
[2018-03-02 16:00] VITALS: BP 107/59
[2018-03-02] MEDS: RIVAROXABAN 15 MG TABLET (XARELTO) PO SCH (16:59)
[2018-03-02 20:00] VITALS: BP 114/69
[2018-03-02 23:58] VITALS: BP 112/62
[2018-03-03] VITALS (7 sets, daily range): BP systolic 95–121; BP diastolic 55–70
[2018-03-03] MEDS: NITROGLYCERIN 2% OINT 1 GM UNIT DOSE PACKET TOP SCH ×3 (06:22→22:14)
[2018-03-03] MEDS: PANTOPRAZOLE 20 MG TABLET (PROTONIX) PO SCH (06:22)
[2018-03-03] MEDS: VANCOMYCIN 500 MG/D5W 100 ML IV SCH ×2 (06:23)
[2018-03-03] MEDS: CATHETER FLUSH 10 ML SYR IV SCH ×4 (06:23→22:14)
--- NOTE | 2018-03-03 07:20 | Pulmonary Progress Note ---
Exam Exam Vital Signs Date Time Temp Pulse Resp B/P (MAP) Pulse Ox O2 Delivery O2 Flow Rate FiO2 03/03/18 03:44 97.6 72 16 114/66 (82) 96 Room Air 03/03/18 01:00 80 03/02/18 23:58 98.0 82 18 112/62 (79) 98 Room Air 03/02/18 20:00 97.9 86 16 114/69 (84) 97 Room Air 03/02/18 20:00 97 Room Air 03/02/18 19:19 97 Nasal Cannula 2.00 03/02/18 19:00 84 03/02/18 16:00 98.3 73 16 107/59 (75) 99 Room Air 0.00 03/02/18 13:00 83 03/02/18 12:00 99.4 70 18 101/52 (68) 99 Nasal Cannula 1.00 03/02/18 08:00 97 Room Air 03/02/18 08:00 98.7 70 20 105/69 (81) 97 Nasal Cannula 1.00 I & O 03/03/18 07:00 Intake Total 1010 ml Output Total 800 ml Balance 210 ml General Appearance: No Apparent Distress, Thin HEENT: Normal ENT Inspection Neck: Full Range of Motion, Normal Inspection Respiratory: Chest Non Tender, No Accessory Muscle Use, No Respiratory Distress Cardiovascular: Irregularly Irregular Capillary Refill: Less Than 3 Seconds Gastrointestinal: non tender, soft Extremity: Normal Capillary Refill, Normal Inspection Neurologic/Psychiatric: Alert, No Motor/Sensory Deficits, Normal Mood/Affect, Other (subtle poor recall, dysarthria) Skin: Normal Color, Warm/Dry Lymphatic: No Adenopathy Results Lab Laboratory Tests 03/02/18 05:35 Assessment/Plan Assessment/Plan CVA /R [place] non-hemorrhagic stroke on 02/19/18 Dysphagia -speech therapy is following -Pt is on dysphagia diet -Aspiration precautions aspiration pneumonia -Cefepime and Vanco. -Cultures are negative thus far -Labs pending -daily labs, and CXR metabolic acidosis-- improved CHF EF is 35-40% SOB with pulmonary edema with hypoxia -monitor close possible JOANNE -will schedule out patient sleep study at f/u appt with me. Persistent AFIB -On Xarelto CXR and labs reviewed 232 SHAHBAZ NOLAN DO Mar 03, 2018 07:20
[2018-03-03 07:25] LABS: BASOPHILS % (AUTO) 0 % (0-10); EOSINOPHILS # (AUTO) 0.1 10^3/uL (0.0-0.3); EOSINOPHILS % (AUTO) 1 % (0-10); HEMATOCRIT 29 % (35-52); HEMOGLOBIN 8.9 G/DL (11.5-16.0); LYMPHOCYTES # (AUTO) 0.8 X 10^3 (1.0-4.0); LYMPHOCYTES % (AUTO) 10 % (12-44); MEAN CORPUSCULAR HEMOGLOBIN 25 PG (25-34); MEAN CORPUSCULAR HGB CONC 31 G/DL (32-36); MEAN CORPUSCULAR VOLUME 83 FL (80-99); MEAN PLATELET VOLUME 12.6 FL (7.4-10.4); MONOCYTES # (AUTO) 1.6 X 10^3 (0.0-1.0); MONOCYTES % (AUTO) 21 % (0-12); NEUTROPHILS # (AUTO) 5.1 X 10^3 (1.8-7.8); NEUTROPHILS % (AUTO) 67 % (42-75); PLATELET COUNT 149 10^3/uL (130-400); RED BLOOD COUNT 3.52 10^6/uL (4.35-5.85); RED CELL DISTRIBUTION WIDTH 18.5 % (10.0-14.5); WHITE BLOOD COUNT 7.7 10^3/uL (4.3-11.0)
[2018-03-03 07:53] LABS: BUN/CREATININE RATIO 41; CALCIUM 8.8 MG/DL (8.5-10.1); CARBON DIOXIDE 26 MMOL/L (21-32); CHLORIDE 107 MMOL/L (98-107); GFR ESTIMATED > 60; GLUCOSE 92 MG/DL (70-105); MAGNESIUM 2.2 MG/DL (1.8-2.4); PHOSPHORUS 2.9 MG/DL (2.3-4.7); POTASSIUM 3.9 MMOL/L (3.6-5.0); SODIUM 143 MMOL/L (135-145)
--- NOTE | 2018-03-03 08:02 | Progress Note (SOAP) ---
Subjective Time Seen by Provider: 08:00 Subjective/Events-last exam Patient doing better. Patient needs 1 more day of IV antibiotics. Plan to discharge tomorrow. Spoke to pulmonology today. Speech is improving. Patient failed rehabilitation Plan to discharge tomorrow to [facility] Objective Exam Vital Signs Date Time Temp Pulse Resp B/P (MAP) Pulse Ox O2 Delivery O2 Flow Rate FiO2 03/03/18 03:44 97.6 72 16 114/66 (82) 96 Room Air 03/03/18 01:00 80 03/02/18 23:58 98.0 82 18 112/62 (79) 98 Room Air 03/02/18 20:00 97.9 86 16 114/69 (84) 97 Room Air 03/02/18 20:00 97 Room Air 03/02/18 19:19 97 Nasal Cannula 2.00 03/02/18 19:00 84 03/02/18 16:00 98.3 73 16 107/59 (75) 99 Room Air 0.00 03/02/18 13:00 83 03/02/18 12:00 99.4 70 18 101/52 (68) 99 Nasal Cannula 1.00 03/02/18 08:00 97 Room Air 03/02/18 08:00 98.7 70 20 105/69 (81) 97 Nasal Cannula 1.00 I & O 03/03/18 07:00 Intake Total 1010 ml Output Total 800 ml Balance 210 ml Capillary Refill : Less Than 3 SecondsLess Than 3 Seconds General Appearance: No Apparent Distress, Thin HEENT: Normal ENT Inspection Neck: Full Range of Motion, Normal Inspection Respiratory: Lungs Clear, No Accessory Muscle Use, No Respiratory Distress, Decreased Breath Sounds Cardiovascular: Irregularly Irregular Gastrointestinal: non tender, soft Results Lab Laboratory Tests 03/03/18 06:27 Laboratory Tests 03/03/18 06:27: White Blood Count 7.7, Red Blood Count 3.52L, Hemoglobin 8.9L, Hematocrit 29L, Mean Corpuscular Volume 83, Mean Corpuscular Hemoglobin 25, Mean Corpuscular Hemoglobin Concent 31L, Red Cell Distribution Width 18.5H, Platelet Count 149, Mean Platelet Volume 12.6H, Neutrophils (%) (Auto) 67, Lymphocytes (%) (Auto) 10L, Monocytes (%) (Auto) 21H, Eosinophils (%) (Auto) 1, Basophils (%) (Auto) 0 , Neutrophils # (Auto) 5.1, Lymphocytes # (Auto) 0.8L, Monocytes # (Auto) 1.6H, Eosinophils # (Auto) 0.1, Basophils # (Auto) 0.0, Sodium Level 143, Potassium Level 3.9, Chloride Level 107, Carbon Dioxide Level 26, Anion Gap 10, Blood Urea Nitrogen 33H, Creatinine 0.80, Estimat Glomerular Filtration Rate > 60, BUN /Creatinine Ratio 41, Glucose Level 92, Calcium Level 8.8, Phosphorus Level 2.9 , Magnesium Level 2.2 Microbiology 02/26/18 Blood Culture - Preliminary, Resulted No growth 02/26/18 Urine Culture - Final, Complete NO GROWTH Assessment/Plan Assessment/Plan Assess & Plan/Chief Complaint CVA. A. fib. CHF. Dysarthria. Coronary artery disease. Chest x-ray looks worse the other day. . 02/24/18. Acute CVA. A. fib. CHF. Dysarthria. Chest x-ray ordered this morning very Coronary artery disease. Speech is improving. kam Is not here this morning. . 02/25/18. Acute CVA. A. fib. CHF. Dysarthria. Coronary artery disease. Patient weak this a.m. BNP coming down.. . 02/26/18. Acute CVA. A. fib. CHF. Liver enzymes elevated area Hold Lipitor. BNP elevated. Patient put on chest oh. Patient given Lasix IV today Patient to go to [facility] probably tomorrow. 02/27/18. Acute CVA. A. fib. Pulmonary edema. Elevated liver tests improving. BNP over 1700 better. Increased the dose of Lasix. Pneumonia. . 03/02/18. Pneumonia. Acute CVA. Dysarthria. A. fib. Pulmonary edema. Patient clinically improving. Patient is speaking better. According to niece patient getting around better. . 03/03/18. Pneumonia. Acute CVA. Dysarthria. A. fib. Pulmonary edema. Patient speech is improving. 1 more day of IV antibiotics. Plan to discharge tomorrow Clinical Quality Measures Admission Status Admission Dx CVA. Pulmonary edema. Pneumonia. Short of breath. Mumbled speech. Atrial fibrillation. Cataracts DVT/VTE Risk/Contraindication: Risk Factor Score Per Nursin RFS Level Per Nursing on Admit: 4+=Very High Contraindications-Pharm: Other *list below* Stroke: Date of last known well: Feb 19, 2018 ARGENIS JERRY DO Mar 03, 2018 8:02 am
--- NOTE | 2018-03-03 08:17 | Diagnostic Imaging Report ---
INDICATION: Shortness of breath, CHF. COMPARISON: 03/02/2018. FINDINGS: Single view of the chest demonstrates cardiac enlargement with persistent but decreased central vascular congestion and borderline pulmonary edema. Stable small effusions are seen. There is no pneumothorax. Osseous structures are stable. IMPRESSION: 1. Cardiac enlargement with persistent but decreased interstitial pulmonary edema and vascular congestion. 2. Unchanged small effusions. Dictated by: Dictated on workstation # [id number]
[2018-03-03] MEDS: DILTIAZEM 240 MG (CARDIZEM CD) CAP PO SCH (08:21)
[2018-03-03] MEDS: ASPIRIN 81 MG CHEW (CHILDREN'S ASA) PO SCH (08:21)
[2018-03-03] MEDS: meTOproloL SUCCINATE 50 MG (TOPROL XL) TAB PO SCH (08:21)
[2018-03-03] MEDS: DOCUSATE SODIUM 100 MG (COLACE) CAP PO SCH ×3 (08:21→20:31)
[2018-03-03] MEDS: POLYETHYLENE GLYCOL 17 GM (MIRALAX) PACK PO SCH ×2 (08:22→20:31)
[2018-03-03] MEDS: SACUBITRIL/VALSARTAN 24/26 MG (ENTRESTO) TABLET PO SCH ×2 (08:26→20:31)
[2018-03-03] MEDS: FUROSEMIDE 40 MG/4 ML INJ (LASIX) IVP SCH (08:27)
[2018-03-03] MEDS: RT-ALBUTEROL SULF 2.5 MG/3 ML PRE-MIX VIAL INH SCH ×2 (08:55→19:25)
--- NOTE | 2018-03-03 09:27 | Physical Therapy Daily Note ---
PT Daily Note-Current Subjective Patient in bed pre tx, agrees to PT, no complaints of pain. Patient indicated that she needed to use the bedside commode, she transferred to the commode with CGA/[place] and went on it and she was able to wipe herself without assist. Appearance Patient in bed post tx with speech therapy taking over after PT. Mental Status Patient Orientation: Person, Non-Verbal/Aphasic Attachments: Oxygen Transfers Functional [place] Measure 0=Not Assessed/NA 4=Minimal Assistance 1=Total Assistance 5=Supervision or Setup 2=Maximal Assistance 6=Modified [place] 3=Moderate Assistance 7=Complete IndependenceIRFPAI Quality Coding Scale 6 Independent with activity with or without an assistive device 5 Patient requires set up or clean up by helper. Patient completes activity by themselves 4 Supervision or touching assist (CGA). [place] provide cues , steadying assist 3 The helper provides less than half the effort to complete the activity 2 The helper provides more than half the effort to complete the activity 1 Dependent. The helper does all the effort to complete an activity 7 Patient refused to complete or attempt activity 9 The patient did not perform the activity before the current illness or injury 88 Not attempted due to Medical conditions or safety concerns Transfers (B, C, W/C) (FIM): 4 Scootin Rollin Supine to/from Sit: 5 Sit to/from Stand: 4 Bed to/from Chair: 4 CGA with transfers, patient moves quickly, impulsive Weight Bearing Right Lower Extremity: Right Full Weight Bearing Left Lower Extremity: Left Full Weight Bearing Gait Training Gait (FIM): 4 Distance: 200' Gait Level of Assist: 4 Gait Persons Needed: 1 Gait Assistive Device: FWW min assist for balance, patient ambulates very quickly and needs cues to slow down and keep walker closer to her. Patient was exhausted after the ambulation. Treatments bed mobility and transfers, ambulation, patient was toileted. Assessment Current Status: Fair Progress improving stability/balance during ambulation PT Skilled Nursing Goals Cosmetologist Goals PT Skilled Nursing Goals Time Frame: Mar 06, 2018 Transfers (B,C,W/C) (FIM): 4 Gait (FIM): 2 Gait distance (FIM): 6=092-22 ft Distance: 125' Gait Level of Assist: 4 Gait Assistive Device: FWW PT Plan Problem List Problem List: Activity Tolerance, Functional Strength, Safety, Balance, Gait, Transfer, Bed Mobility, ROM Treatment/Plan Treatment Plan: Continue Plan of Care Treatment Plan: Bed Mobility, Education, Functional Activity Larry, Functional Strength, Gait, Safety, Therapeutic Exercise, Transfers Treatment Duration: Mar 06, 2018 Frequency: 6 times per week Estimated Hrs Per Day: .5 hour per day Patient and/or Family Agrees t: Yes Safety Risks/Education Patient Education: Gait Training, Transfer Techniques, Correct Positioning, Safety Issues Teaching Recipient: Patient Teaching Methods: Demonstration, Discussion Response to Teaching: Reinforcement Needed Time/GCodes Time In: 904 Time Out: 916 Total Billed Treatment Time: 12 Total Billed Treatment 1 visit GT 12' JESUS CHACON PT Mar 03, 2018 09:26
--- NOTE | 2018-03-03 10:01 | Progress Note-Cardiology ---
Cardiology SOAP Progress Note Subjective: Sitting up in bed. Reports she is tired this morning. No c/o CP, SOB or palpitations. Objective: I&O/Vital Signs 03/03/18 03/03/18 03/03/18 03/03/18 03:44 07:44 08:00 08:00 Temp 97.6 97.4 Pulse 72 81 72 Resp 16 16 B/P (MAP) 114/66 (82) 115/65 (82) Pulse Ox 96 94 O2 Delivery Room Air Room Air Room Air 03/03/18 03/03/18 03/03/18 03/03/18 08:55 09:00 12:00 13:00 Temp 97.9 Pulse 76 83 77 Resp 18 B/P (MAP) 95/55 (68) Pulse Ox 97 97 97 O2 Delivery Nasal Cannula Room Air O2 Flow Rate 2.00 FiO2 28 03/03/18 00:00 Intake Total 1010 ml Output Total 600 ml Balance 410 ml Weight (Pounds): 87 Weight (Ounces): 6.0 Weight (Calculated Kilograms): 39.506386 Constitutional: AAO x 3, well-developed, other (thin appearing) Respiratory: No accessory muscle use; lungs clear to percussion, lungs clear to auscultation Cardiovascular: irregularly irregular, S1 and S2, systolic murmur (soft BRIGID at card base) Gastrointestional: No tender; soft; No guarding, No rebound; audible bowel sounds Extremities: No clubbing, No cyanosis, No significant edema Neurologic/Psychiatric: other (dysrthria; move all limbs equally; alert and oriented) Skin: No rash on exposed areas, No ulcerations on exposed areas Results/Procedures: Labs Laboratory Tests 03/03/18 06:27: White Blood Count 7.7, Red Blood Count 3.52L, Hemoglobin 8.9L, Hematocrit 29L, Mean Corpuscular Volume 83, Mean Corpuscular Hemoglobin 25, Mean Corpuscular Hemoglobin Concent 31L, Red Cell Distribution Width 18.5H, Platelet Count 149, Mean Platelet Volume 12.6H, Neutrophils (%) (Auto) 67, Lymphocytes (%) (Auto) 10L, Monocytes (%) (Auto) 21H, Eosinophils (%) (Auto) 1, Basophils (%) (Auto) 0 , Neutrophils # (Auto) 5.1, Lymphocytes # (Auto) 0.8L, Monocytes # (Auto) 1.6H, Eosinophils # (Auto) 0.1, Basophils # (Auto) 0.0, Sodium Level 143, Potassium Level 3.9, Chloride Level 107, Carbon Dioxide Level 26, Anion Gap 10, Blood Urea Nitrogen 33H, Creatinine 0.80, Estimat Glomerular Filtration Rate > 60, BUN /Creatinine Ratio 41, Glucose Level 92, Calcium Level 8.8, Phosphorus Level 2.9 , Magnesium Level 2.2 Microbiology 02/26/18 Blood Culture - Preliminary, Resulted No growth 02/26/18 Urine Culture - Final, Complete NO GROWTH Laboratory Tests 03/02/18 05:35 03/03/18 06:27 A/P: Assessment: R [place] non-hemorrhagic stroke on 02/19/18 - Medical Service managing Chronic persistent A fib, first diagnosed in Oct 2013, rate currently controlled Chronic rivaroxaban therapy for stroke prophylaxis. Elevated INR due to chronic rivaroxaban therapy. INR is elevated in most patients on Direct Xa inhibitors ( especially rivaroxaban) and cannot be used to monitor therapy or adjust dose Acute on chronic systolic CHF, clinically improved CAD. S/p mid RCA stent (Integrity 2.75x12) in early Oct 2013 following presentation with ac NSTEMI. The rest of the cors had diffuse mod disease with stenoses of up to 50-60%. MPI of 07/11/17 showed no ischemia of infarction and LVEF of 45% (subjectively felt to be higher) Ischemic cm. Cath of 11/08/13, prior to PCI, showed LVEF 35-40% and elev LVEDP Echocardiogram of 02/26/18: LVEF 10-15% (deterioration compared to previous), PASP 40 mm Hg. (essentially unchanged compaed to echo of December 2014) Carotid u/s from January 09, 2015 showed bilat plaque at the carotid bifurcation with velocities suggestive of underlying stenosis in the range of 60-79% in the right ICA, and in the left ICA 0-40%, unchanged on subsequent carotid u/s of . Carotid u/s of January 2017 showed mod bilat carotid plaque Ch anemia of undetermined etiology, being managed by Dr Alvarez Hyperlipidemia, treated with atorvastatin and followed by Dr Alvarez CKD stage 2-3 H/O CVA in December 2014 Plan: * Dr. Aguillon discussed her case with Dr Alvarez. * Continue Entresto that she seems to be tolerating well * Continue diuretic therapy * Monitor labs * Medical Svce to manage stroke * Plan is to discharge home tomorrow to LTC Facility * Out pt f/u Physician Assessment Physician Assessment No new symptoms. Denies cp or palp or syncope or shortness of breath Lungs: good air entry, but diminished at the bases Cor: irreg Ext: no c/c/e A&R * As documented in our note above that I updated (italics) and as noted below * Continue current therapy * Monitor labs Clinical Quality Measures Stroke: Date of last known well: Feb 19, 2018 RYLAN CHO DUSTING AND BRUSHING MACHINE OPERATOR Mar 03, 2018 10:01 RONNI AGUILLON MD FACP FAC CCDS Mar 03, 2018 15:04
--- NOTE | 2018-03-03 10:32 | Speech Therapy Daily Note ---
Speech Daily Progress Note Subjective Date Seen by Provider: Mar 03, 2018 Time Seen by Provider: 09:18 The patient was seated upright in bed, recently finished with PT. The patient greeted the clinician and was agreeable to participation in the dysphagia therapy session. Objective Dysphagia: Thin Liquid (teaspoon): The patient demonstrated an immediate, rigorous cough with two of two teaspoons of thin liquid. [place]- Thick Liquid: No signs/symptoms of aspiration were demonstrated with multiple trials of nectar-thick liquid (six ounces total). The patient's vocal quality remained clear. Puree: No signs/symptoms of aspiration were demonstrated with multiple trials of puree consistency. Solid: No signs/symptoms of aspiration were demonstrated with multiple trials of solid (heidy cracker). The patient did demonstrate minimal right buccal residue which she was able to clear with a subsequent dry swallow. Recommendations: Mechanical soft consistency with nectar-thick liquid. Assess right oral cavity for pocketing throughout meals. Assessment Assessment Current Status: Fair Progress Treatment Plan Continue Plan of Care Speech Short Term Goals Short Term Goals Short Term Goals 1. The patient will demonstrate 60% accuracy with repetition of single and multi -syllabic bilabial words. 2. The patient will display 75% accuracy with oral motor exercises. 3. The patient will tolerate 10/10 bolus trials with nectar-thick liquids without signs/symptoms of aspiration. Time Frame-STG: Three Days Speech Retail Link Analyst Goals Senior Care Goals 1. The patient will display increased intelligibility through expressive communication. 2. The patient will tolerate the least restrictive diet without signs/symptoms of aspiration. Time Frame: One Week Speech-Plan Treatment Plan Speech Therapy Treatment Plan: Continue Plan of Care Continue dysphagia therapy to target swallowing safety. Treatment Duration: Mar 02, 2018 Frequency: 3 times per week Estimated Hrs Per Day: .5 hour per day Rehab Potential: Fair Safety Risks/Education Teaching Recipient: Patient Teaching Methods: Discussion Response to Teaching: Verbalize Understanding Education Topics Provided: Upgrade Diet Recommendations. Time Speech Therapy Time In: 09:17 Speech Therapy Time Out: 09:32 Total Billed Time: 15 Billed Treatment Time CHRISTIAN Oden ELIZALIZZ FLYNN Mar 03, 2018 10:32
--- NOTE | 2018-03-03 11:07 | Occupational Ther Daily Note ---
OT Current Status-Daily Note Subjective Pt dozing in bed, woke to name. Pt agrees to therapy. No c/o pain. Pt is verbalizing though is difficult to understand. Pt does not get frustrated and tries to speak clearer and use hand gestures. Mental Status/Objective Patient Orientation: Person, Place, Non-Verbal/Aphasic, Time, Situation Functional [place] Measure 0=Not Assessed/NA 4=Minimal Assistance 1=Total Assistance 5=Supervision or Setup 2=Maximal Assistance 6=Modified [place] 3=Moderate Assistance 7=Complete [place] Attachments: IV, Oxygen ADL-Treatment Pt declined to ADLs. Other Treatment Pt agrees to complete light resistance theraband exercises for UE's. Completed 4 exercises to increase strength and activity tolerance for daily functional tasks. Pt became SOA after each 5th rep and continued on to 10 reps. Pt took recovery break between each exercise. Pt fatigued quickly with exercise. After therapy, pt lying in bed with call light/phone in reach. All needs met in room. OT Short Term Goals Short Term Goals 1=Demonstrate adherence to instructed precautions during ADL tasks. 2=Patient will verbalize/demonstrate understanding of assistive devices/ modifications for ADL. 3=Patient will improve strength/tolerance for activity to enable patient to perform ADL's. OT Cognos Developer Goals Cognos Developer Goals Time Frame: Mar 09, 2018 Eating (FIM): 6 Grooming(FIM): 6 Bathing(FIM): 5 Upper Body Dressing(FIM): 6 Lower Body Dressing(FIM): 6 Toileting(FIM): 6 Transfers (B,C,W/C) (FIM): 6 Toilet/Commode Transfer(FIM): 6 Shower Transfer(FIM): 5 Additional Goals: 1-Demonstrate ADL Tasks, 2-Verbalize Understanding, 3- ImproveStrength/Larry 1=Demonstrate adherence to instructed precautions during ADL tasks. 2=Patient will verbalize/demonstrate understanding of assistive devices/ modifications for ADL. 3=Patient will improve strength/tolerance for activity to enable patient to perform ADL's. OT Education/Plan Discharge Recommendations Plan/Recommendations: Continue POC Treatment Plan/Plan of Care Patient would benefit from OT for education, treatment and training to promote independence in ADL's, mobility, safety and/or upper extremity function for ADL' s. Plan of Care: ADL Retraining, Functional Mobility Treatment Duration: Mar 09, 2018 Frequency: 5 times per week Estimated Hrs Per Day: .25 hour per day Agreement: Yes Rehab Potential: Fair Time/GCodes Start Time: 10:52 Stop Time: 11:05 Total Time Billed (hr/min): 13 Billed Treatment Time 1 visit-EX 1 (13 min) GUI MCKEON Mar 03, 2018 11:07
[2018-03-03] MEDS: CEFEPIME 2 GM/NS 50 ML IVPB IV SCH ×2 (11:18)
[2018-03-03] MEDS: RIVAROXABAN 15 MG TABLET (XARELTO) PO SCH (17:22)
[2018-03-03] MEDS ORDERED: ACETAMINOPHEN 500 MG TAB (TYLENOL) PO PRN (21:00)
[2018-03-03] MEDS ORDERED: ACETAMINOPHEN 325 MG TABLET PO PRN (21:15)
[2018-03-04 03:38] VITALS: BP 116/64
[2018-03-04 05:26] LABS: BASOPHILS % (AUTO) 1 % (0-10); EOSINOPHILS # (AUTO) 0.1 10^3/uL (0.0-0.3); EOSINOPHILS % (AUTO) 2 % (0-10); HEMATOCRIT 28 % (35-52); HEMOGLOBIN 8.6 G/DL (11.5-16.0); LYMPHOCYTES # (AUTO) 0.7 X 10^3 (1.0-4.0); LYMPHOCYTES % (AUTO) 13 % (12-44); MEAN CORPUSCULAR HEMOGLOBIN 26 PG (25-34); MEAN CORPUSCULAR HGB CONC 31 G/DL (32-36); MEAN CORPUSCULAR VOLUME 84 FL (80-99); MEAN PLATELET VOLUME 12.8 FL (7.4-10.4); MONOCYTES # (AUTO) 1.1 X 10^3 (0.0-1.0); MONOCYTES % (AUTO) 21 % (0-12); NEUTROPHILS # (AUTO) 3.4 X 10^3 (1.8-7.8); NEUTROPHILS % (AUTO) 64 % (42-75); PLATELET COUNT 151 10^3/uL (130-400); RED BLOOD COUNT 3.31 10^6/uL (4.35-5.85); RED CELL DISTRIBUTION WIDTH 18.1 % (10.0-14.5); WHITE BLOOD COUNT 5.4 10^3/uL (4.3-11.0)
[2018-03-04] MEDS: CATHETER FLUSH 10 ML SYR IV SCH ×2 (05:33→14:26)
[2018-03-04 05:36] VITALS: BP 98/71
[2018-03-04] MEDS: NITROGLYCERIN 2% OINT 1 GM UNIT DOSE PACKET TOP SCH (05:36)
[2018-03-04 05:49] LABS: BUN/CREATININE RATIO 44; CALCIUM 8.5 MG/DL (8.5-10.1); CARBON DIOXIDE 24 MMOL/L (21-32); CHLORIDE 103 MMOL/L (98-107); CREATININE SERUM 0.81 MG/DL (0.60-1.30); GFR ESTIMATED > 60; GLUCOSE 95 MG/DL (70-105); MAGNESIUM 2.2 MG/DL (1.8-2.4); PHOSPHORUS 3.1 MG/DL (2.3-4.7); POTASSIUM 3.9 MMOL/L (3.6-5.0); SODIUM 139 MMOL/L (135-145)
[2018-03-04] MEDS: VANCOMYCIN 500 MG/D5W 100 ML IV SCH ×2 (06:00)
[2018-03-04] MEDS: PANTOPRAZOLE 20 MG TABLET (PROTONIX) PO SCH (06:00)
--- NOTE | 2018-03-04 07:01 | Pulmonary Progress Note ---
Exam Exam Vital Signs Date Time Temp Pulse Resp B/P (MAP) Pulse Ox O2 Delivery O2 Flow Rate FiO2 03/04/18 05:36 77 98/71 (80) 03/04/18 03:38 97.7 82 18 116/64 (81) 96 Room Air 03/04/18 01:00 80 03/03/18 23:58 99.7 87 16 111/58 (75) 98 Room Air 03/03/18 22:46 100.2 03/03/18 22:16 100.9 03/03/18 20:31 Nasal Cannula 2.00 03/03/18 20:28 101.0 85 16 121/62 (81) 99 Room Air 03/03/18 19:26 97 Nasal Cannula 2.00 03/03/18 19:00 81 03/03/18 16:00 99.3 72 14 108/70 (83) 99 Room Air 03/03/18 13:00 77 03/03/18 12:00 97.9 83 18 95/55 (68) 97 Room Air 03/03/18 09:00 76 97 28 03/03/18 08:55 97 Nasal Cannula 2.00 03/03/18 08:00 Room Air 03/03/18 08:00 97.4 72 16 115/65 (82) 94 Room Air 03/03/18 07:44 81 I & O 03/04/18 07:00 Intake Total 1610 ml Output Total 1100 ml Balance 510 ml General Appearance: No Apparent Distress, Thin HEENT: Normal ENT Inspection Neck: Full Range of Motion, Normal Inspection Respiratory: Lungs Clear, No Accessory Muscle Use, No Respiratory Distress, Decreased Breath Sounds Cardiovascular: Irregularly Irregular Capillary Refill: Less Than 3 Seconds Gastrointestinal: non tender, soft Extremity: Normal Capillary Refill, Normal Inspection Neurologic/Psychiatric: Alert, No Motor/Sensory Deficits, Normal Mood/Affect, Other (subtle poor recall, dysarthria) Skin: Normal Color, Warm/Dry Lymphatic: No Adenopathy Results Lab Laboratory Tests 03/03/18 06:27 03/04/18 05:01 Assessment/Plan Assessment/Plan CVA /R [place] non-hemorrhagic stroke on 02/19/18 Dysphagia -speech therapy is following -Pt is on dysphagia diet -Aspiration precautions aspiration pneumonia -Cefepime, Vanco -Cultures are negative thus far -Labs pending -daily labs, and CXR metabolic acidosis-- improved CHF EF is 35-40% SOB with pulmonary edema with hypoxia -monitor close possible JOANNE -will schedule out patient sleep study at f/u appt with me. Persistent AFIB -On Xarelto CXR and labs reviewed 232 SHAHBAZ NOLAN DO Mar 04, 2018 07:01
--- NOTE | 2018-03-04 07:58 | Progress Note (SOAP) ---
Subjective Time Seen by Provider: 07:55 Subjective/Events-last exam Patient feeling good this morning. Patient to be discharged today to shelter. Patient is speech has improved. To be seen in the office in one week Objective Exam Vital Signs Date Time Temp Pulse Resp B/P (MAP) Pulse Ox O2 Delivery O2 Flow Rate FiO2 03/04/18 07:36 Nasal Cannula 2.00 03/04/18 05:36 77 98/71 (80) 03/04/18 03:38 97.7 82 18 116/64 (81) 96 Room Air 03/04/18 01:00 80 03/03/18 23:58 99.7 87 16 111/58 (75) 98 Room Air 03/03/18 22:46 100.2 03/03/18 22:16 100.9 03/03/18 20:31 Nasal Cannula 2.00 03/03/18 20:28 101.0 85 16 121/62 (81) 99 Room Air 03/03/18 19:26 97 Nasal Cannula 2.00 03/03/18 19:00 81 03/03/18 16:00 99.3 72 14 108/70 (83) 99 Room Air 03/03/18 13:00 77 03/03/18 12:00 97.9 83 18 95/55 (68) 97 Room Air 03/03/18 09:00 76 97 28 03/03/18 08:55 97 Nasal Cannula 2.00 03/03/18 08:00 Room Air 03/03/18 08:00 97.4 72 16 115/65 (82) 94 Room Air I & O 03/04/18 07:00 Intake Total 1610 ml Output Total 1100 ml Balance 510 ml Capillary Refill : Less Than 3 SecondsLess Than 3 Seconds General Appearance: No Apparent Distress, Thin HEENT: Normal ENT Inspection Neck: Normal Inspection Respiratory: Lungs Clear, No Accessory Muscle Use Cardiovascular: Irregularly Irregular Gastrointestinal: non tender, soft Results Lab Laboratory Tests 03/04/18 05:01: White Blood Count 5.4, Red Blood Count 3.31L, Hemoglobin 8.6L, Hematocrit 28L, Mean Corpuscular Volume 84, Mean Corpuscular Hemoglobin 26, Mean Corpuscular Hemoglobin Concent 31L, Red Cell Distribution Width 18.1H, Platelet Count 151, Mean Platelet Volume 12.8H, Neutrophils (%) (Auto) 64, Lymphocytes (%) (Auto) 13 , Monocytes (%) (Auto) 21H, Eosinophils (%) (Auto) 2, Basophils (%) (Auto) 1, Neutrophils # (Auto) 3.4, Lymphocytes # (Auto) 0.7L, Monocytes # (Auto) 1.1H, Eosinophils # (Auto) 0.1, Basophils # (Auto) 0.0, Sodium Level 139, Potassium Level 3.9, Chloride Level 103, Carbon Dioxide Level 24, Anion Gap 12, Blood Urea Nitrogen 36H, Creatinine 0.81, Estimat Glomerular Filtration Rate > 60, BUN /Creatinine Ratio 44, Glucose Level 95, Calcium Level 8.5, Phosphorus Level 3.1 , Magnesium Level 2.2 Microbiology 02/26/18 Blood Culture - Final, Complete No growth 02/26/18 Urine Culture - Final, Complete NO GROWTH Assessment/Plan Assessment/Plan Assess & Plan/Chief Complaint CVA. A. fib. CHF. Dysarthria. Coronary artery disease. Chest x-ray looks worse the other day. . 02/24/18. Acute CVA. A. fib. CHF. Dysarthria. Chest x-ray ordered this morning very Coronary artery disease. Speech is improving. niadela Is not here this morning. . 02/25/18. Acute CVA. A. fib. CHF. Dysarthria. Coronary artery disease. Patient weak this a.m. BNP coming down.. . 02/26/18. Acute CVA. A. fib. CHF. Liver enzymes elevated area Hold Lipitor. BNP elevated. Patient put on chest oh. Patient given Lasix IV today Patient to go to shelter probably tomorrow. 02/27/18. Acute CVA. A. fib. Pulmonary edema. Elevated liver tests improving. BNP over 1700 better. Increased the dose of Lasix. Pneumonia. . 03/02/18. Pneumonia. Acute CVA. Dysarthria. A. fib. Pulmonary edema. Patient clinically improving. Patient is speaking better. According to niece patient getting around better. . 03/03/18. Pneumonia. Acute CVA. Dysarthria. A. fib. Pulmonary edema. Patient speech is improving. 1 more day of IV antibiotics. Plan to discharge tomorrow Final Diagnosis CVA. A. fib. CHF. Dysarthria. Coronary artery disease. Patient to be discharged today to shelter Clinical Quality Measures Admission Status Admission Dx CVA. Pulmonary edema. Pneumonia. Short of breath. Mumbled speech. Atrial fibrillation. Cataracts DVT/VTE Risk/Contraindication: Risk Factor Score Per Nursin RFS Level Per Nursing on Admit: 4+=Very High Contraindications-Pharm: Other *list below* Stroke: Date of last known well: Feb 19, 2018 ARGENIS JERRY DO Mar 04, 2018 07:57
[2018-03-04 08:00] VITALS: BP 116/56
--- NOTE | 2018-03-04 08:01 | Discharge Inst-Skilled Nursing ---
Discharge Inst-Skilled NF Patient Instructions Patient Problems: Patient needs physical therapy. Patient needs speech therapy. Consult/Follow Up/Orders Follow Up Appt.: One week Skilled NF Admit to: [facility] Certification (SNF) I certify that SNF services are required to be given on an inpatient basis because of the above named patient's need for detention care on a continuing basis for the conditions(s) for which he/she was receiving inpatient hospital services prior to his/her transfer to the SNF. Jail Facility Order: Nursing Services, Machinery Mover-Evaluate & Treat, Physical Therapy-Evaluate & Treat, Speech Language-Evaluate & Treat Discharge Diet: Other Diet (Mechanical soft, neckThickened) Daily Activity as Tolerated: Yes New & Resume Previous Orders Jereimah Jerry Mar 04, 2018 07:59 JEREMIAH JERRY DO Mar 04, 2018 08:01
[2018-03-04] MEDS ORDERED: FURO-124 PO (08:32)
[2018-03-04] MEDS ORDERED: SACU1TAB PO ×2 (08:32→09:43)
--- NOTE | 2018-03-04 08:33 | Progress Note-Cardiology ---
Cardiology SOAP Progress Note Subjective: No c/o CP, SOB or palpitations. Objective: I&O/Vital Signs 03/04/18 03/04/18 03/04/18 03/04/18 05:36 07:00 07:36 08:00 Temp 99.1 Pulse 77 79 74 Resp 18 B/P (MAP) 98/71 (80) 116/56 (76) Pulse Ox 95 O2 Delivery Nasal Cannula Room Air O2 Flow Rate 2.00 03/04/18 03/04/18 03/04/18 03/04/18 08:56 11:18 12:00 14:40 Temp 97.0 Pulse 89 Resp 18 B/P (MAP) 105/57 (73) Pulse Ox 100 O2 Delivery Nasal Cannula Nasal Cannula Room Air O2 Flow Rate 2.00 2.00 03/04/18 00:00 Intake Total 1360 ml Output Total 1100 ml Balance 260 ml Weight (Pounds): 90 Weight (Ounces): 2.0 Weight (Calculated Kilograms): 40.787950 Constitutional: AAO x 3, well-developed, other (thin appearing) Respiratory: No accessory muscle use; lungs clear to percussion, lungs clear to auscultation Cardiovascular: irregularly irregular, S1 and S2, systolic murmur (soft BRIGID at card base) Gastrointestional: No tender; soft; No guarding, No rebound; audible bowel sounds Extremities: No clubbing, No cyanosis, No significant edema Neurologic/Psychiatric: other (dysrthria; move all limbs equally; alert and oriented) Skin: No rash on exposed areas, No ulcerations on exposed areas Results/Procedures: Labs Laboratory Tests 03/04/18 05:01: White Blood Count 5.4, Red Blood Count 3.31L, Hemoglobin 8.6L, Hematocrit 28L, Mean Corpuscular Volume 84, Mean Corpuscular Hemoglobin 26, Mean Corpuscular Hemoglobin Concent 31L, Red Cell Distribution Width 18.1H, Platelet Count 151, Mean Platelet Volume 12.8H, Neutrophils (%) (Auto) 64, Lymphocytes (%) (Auto) 13 , Monocytes (%) (Auto) 21H, Eosinophils (%) (Auto) 2, Basophils (%) (Auto) 1, Neutrophils # (Auto) 3.4, Lymphocytes # (Auto) 0.7L, Monocytes # (Auto) 1.1H, Eosinophils # (Auto) 0.1, Basophils # (Auto) 0.0, Sodium Level 139, Potassium Level 3.9, Chloride Level 103, Carbon Dioxide Level 24, Anion Gap 12, Blood Urea Nitrogen 36H, Creatinine 0.81, Estimat Glomerular Filtration Rate > 60, BUN /Creatinine Ratio 44, Glucose Level 95, Calcium Level 8.5, Phosphorus Level 3.1 , Magnesium Level 2.2 Microbiology 02/26/18 Blood Culture - Final, Complete No growth 02/26/18 Urine Culture - Final, Complete NO GROWTH A/P: Assessment: R [place] non-hemorrhagic stroke on 02/19/18 - Medical Service managing Chronic persistent A fib, first diagnosed in Oct 2013, rate currently controlled Chronic rivaroxaban therapy for stroke prophylaxis. Elevated INR due to chronic rivaroxaban therapy. INR is elevated in most patients on Direct Xa inhibitors ( especially rivaroxaban) and cannot be used to monitor therapy or adjust dose Acute on chronic systolic CHF, clinically improved CAD. S/p mid RCA stent (Integrity 2.75x12) in early Oct 2013 following presentation with ac NSTEMI. The rest of the cors had diffuse mod disease with stenoses of up to 50-60%. MPI of 07/11/17 showed no ischemia of infarction and LVEF of 45% (subjectively felt to be higher) Ischemic cm. Cath of 11/08/13, prior to PCI, showed LVEF 35-40% and elev LVEDP Echocardiogram of 02/26/18: LVEF 10-15% (deterioration compared to previous), PASP 40 mm Hg. (essentially unchanged compaed to echo of December 2014) Carotid u/s from January 09, 2015 showed bilat plaque at the carotid bifurcation with velocities suggestive of underlying stenosis in the range of 60-79% in the right ICA, and in the left ICA 0-40%, unchanged on subsequent carotid u/s of . Carotid u/s of January 2017 showed mod bilat carotid plaque Ch anemia of undetermined etiology, being managed by Dr Alvarez Hyperlipidemia, treated with atorvastatin and followed by Dr Alvarez CKD stage 2-3 H/O CVA in December 2014 Plan: * Continue current medication regimen * Monitor labs - BMP in one week * Change IV Lasix to oral * Medical Svce to manage stroke * Plan is to discharge today to LTC Facility * Out pt f/u advised in 2 weeks Physician Assessment Physician Assessment Notes gen weakness and tiredness. Denies cp or palp or syncope Lungs: good air entry, but diminished at the bases Cor: irreg Ext: no c/c/e A&R * As documented in our note above that I updated (italics) and as noted below * Continue current therapy * Monitor labs Clinical Quality Measures Stroke: Date of last known well: Feb 19, 2018 RYLAN CHO BRASS MOLDER HELPER Mar 04, 2018 08:33 RONNI YEE MD FACP FACC CCDS Mar 04, 2018 17:09
--- NOTE | 2018-03-04 08:35 | Diagnostic Imaging Report ---
INDICATION: Pneumonia. COMPARISON: 03/03/2018. FINDINGS: A single frontal radiographic view of the chest was obtained and demonstrates persistent marked cardiomegaly. The pulmonary vasculature may be minimally prominent. The lungs show interval progression of patchy alveolar opacities within the right base. Bibasilar effusions are again noted. There is no pneumothorax. The bony structures show no adverse interval change. IMPRESSION: 1. Interval progression of patchy pneumonia type infiltrates within the right lung base. 2. Persistent bibasilar effusions, left greater than right. 3. Marked cardiomegaly with perhaps mild pulmonary vascular congestion. Dictated by: Dictated on workstation # [id number]
[2018-03-04] MEDS: SACUBITRIL/VALSARTAN 24/26 MG (ENTRESTO) TABLET PO SCH (09:00)
[2018-03-04] MEDS ORDERED: FUROSEMIDE 40 MG (LASIX) TAB PO SCH (09:00)
[2018-03-04] MEDS: meTOproloL SUCCINATE 50 MG (TOPROL XL) TAB PO SCH (09:00)
[2018-03-04] MEDS: ASPIRIN 81 MG CHEW (CHILDREN'S ASA) PO SCH (09:00)
[2018-03-04] MEDS: DOCUSATE SODIUM 100 MG (COLACE) CAP PO SCH (09:00)
[2018-03-04] MEDS: DILTIAZEM 240 MG (CARDIZEM CD) CAP PO SCH (09:00)
[2018-03-04] MEDS: POLYETHYLENE GLYCOL 17 GM (MIRALAX) PACK PO SCH (09:01)
[2018-03-04] MEDS ORDERED: CEFD300C3 PO (10:17)
[2018-03-04] MEDS ORDERED: ASPI-999 PO (10:17)
[2018-03-04] MEDS: RT-ALBUTEROL SULF 2.5 MG/3 ML PRE-MIX VIAL INH SCH (11:17)
[2018-03-04] MEDS: CEFEPIME 2 GM/NS 50 ML IVPB IV SCH ×2 (11:18)
--- NOTE | 2018-03-04 11:39 | Physical Therapy Progress Note ---
Therapy Progress Note CYTOGENETIC TECHNOLOGIST arrives to see pt. Pt communicates that pt doesn't feel up to PT right now and that pt is to leave for SNF today. CYTOGENETIC TECHNOLOGIST asked pt if she has any questions or needs anything and pt declines other than wanting to continue with Speech Therapy. CYTOGENETIC TECHNOLOGIST advises that all Therapies will be completed at SNF. Pt is resting in bed as CYTOGENETIC TECHNOLOGIST leaves and has all needs met. 1 visit, no tx rendered (11:10) LETICIA PRITCHARD PTA Mar 04, 2018 11:38
[2018-03-04 12:00] VITALS: BP 105/57
--- NOTE | 2018-03-05 08:33 | Discharge Summary ---
Diagnosis/Chief Complaint Date of Admission Feb 19, 2018 at 22:37 Date of Discharge Mar 04, 2018 at 14:40 Discharge Date: Mar 04, 2018 Discharge Time: 08:30 Discharge Diagnosis Acute/subacute nonhemorrhagic infarct involving the right [place]. A. fib. Aspiration pneumonia. Anemia. Coronary artery disease. Dysarthria. Hypertension history. CKD. Thrombocytopenia. Elevated lactic acid. Hypertension history. Acute on chronic systolic congestive heart failure. DO NOT RESUSCITATE. Ischemic cardiomyopathy. Reason Hospital Visit Patient to have eye surgery today. Daughter saw patient at 3 a.m. doing good. Daughter came back at 7 a.m. and mother could not talk and short of breath. Patient brought out to the emergency room. Patient in atrial fibrillation, CHF, pneumonia, and appears to have had a stroke. Patient is not able to speak well and has mumbled speech. Patient in 2014 had a stroke Discharge Summary Consultations Speech therapy. Pulmonology. Cardiology. Discharge Physical Examination Allergies: Coded Allergies: No Known Drug Allergies (Unverified , 09/14/13) Vitals & I&Os Vital Signs Date Time Temp Pulse Resp B/P (MAP) Pulse Ox O2 Delivery O2 Flow Rate FiO2 03/04/18 14:40 03/04/18 12:00 97.0 89 18 100 Room Air 03/04/18 11:18 2.00 03/03/18 09:00 28 Hospital Course Patient in hospital did improve. Patient discharged to alf. Last chest x-ray reviewed with pulmonology showing patchy infiltrate. Patient probably aspirating. [facility] and patient to be sent to the hospital for CBC chest x-ray and speech evaluation and modified barium swallow Labs (last 24 hrs) Laboratory Tests 02/19/18 19:45: White Blood Count 8.2, Red Blood Count 4.00L, Hemoglobin 10.6L, Hematocrit 33L, Mean Corpuscular Volume 82, Mean Corpuscular Hemoglobin 27, Mean Corpuscular Hemoglobin Concent 32, Red Cell Distribution Width 18.5H, Platelet Count 116L, Mean Platelet Volume , Neutrophils (%) (Auto) 60, Lymphocytes (%) (Auto) 19, Monocytes (%) (Auto) 21H, Eosinophils (%) (Auto) 0, Basophils (%) (Auto) 0, Neutrophils # (Auto) 4.9, Lymphocytes # (Auto) 1.6, Monocytes # (Auto) 1.8H, Eosinophils # (Auto) 0.0, Basophils # (Auto) 0.0, Neutrophils % (Manual) 60, Lymphocytes % (Manual) 25, Monocytes % (Manual) 14, Eosinophils % (Manual) 0, Basophils % (Manual) 1, Band Neutrophils 0, Anisocytosis SLIGHT, Spherocytes SLIGHT, Elliptocytes MODERATE, Prothrombin Time 56.5*H, INR Comment 6.3*H, Activated Partial Thromboplast Time 45H, D-Dimer 0.84H, Sodium Level 134L, Potassium Level 4.4, Chloride Level 106, Carbon Dioxide Level 11L, Anion Gap 17H , Blood Urea Nitrogen 22H, Creatinine 1.14, Estimat Glomerular Filtration Rate 45, BUN/Creatinine Ratio 19, Glucose Level 143H, Calcium Level 8.7, Total Bilirubin 1.2H, Aspartate Amino Transf (AST/SGOT) 21, Alanine Aminotransferase ( ALT/SGPT) 16, Alkaline Phosphatase 66, Troponin I < 0.30, B-Type Natriuretic Peptide 2960.1H, Total Protein 6.5, Albumin 3.5 02/19/18 19:59: Glucometer 142H 02/19/18 20:50: Urine Color YELLOW, Urine Clarity CLEAR, Urine pH 5, Urine Specific Newcomb 1.030H, Urine Protein 3+H, Urine Glucose (UA) NEGATIVE, Urine Ketones 1+H, Urine Nitrite NEGATIVE, Urine Bilirubin 1+H, Urine Urobilinogen 4H, Urine Leukocyte Esterase 1+H, Urine RBC (Auto) 1+H, Urine RBC 2-5H, Urine WBC 2-5, Urine Squamous Epithelial Cells 0-2, Urine Crystals NONE, Urine Bacteria TRACE, Urine Casts PRESENT, Urine Hyaline Casts 5-10H, Urine Mucus LARGEH, Urine Culture Indicated NO 02/20/18 03:10: Sodium Level 134L, Potassium Level 3.2L, Chloride Level 102, Carbon Dioxide Level 17L, Anion Gap 15H, Blood Urea Nitrogen 20H, Creatinine 1.03, Estimat Glomerular Filtration Rate 51, BUN/Creatinine Ratio 19, Glucose Level 142H, Calcium Level 8.4L, B-Type Natriuretic Peptide 3029.9H 02/20/18 03:16: Prothrombin Time 39.9H, INR Comment 4.1H, Magnesium Level 1.7L 02/20/18 10:20: Lactic Acid Level 2.10*H 02/20/18 12:25: Lactic Acid Level 5.57*H 02/20/18 17:22: Lactic Acid Level 2.27*H 02/20/18 19:17: Lactic Acid Level 1.65 02/21/18 05:00: Lactic Acid Level 1.51, White Blood Count 9.1, Red Blood Count 3.99L, Hemoglobin 10.2L, Hematocrit 33L, Mean Corpuscular Volume 82, Mean Corpuscular Hemoglobin 26, Mean Corpuscular Hemoglobin Concent 31L, Red Cell Distribution Width 18.6H, Platelet Count 101L, Mean Platelet Volume 02/21/18 05:20: Prothrombin Time 50.1*H, INR Comment 5.5*H, Sodium Level 140, Potassium Level 3.0L, Chloride Level 108H, Carbon Dioxide Level 19L, Anion Gap 13, Blood Urea Nitrogen 20H, Creatinine 1.01, Estimat Glomerular Filtration Rate 52, BUN/ Creatinine Ratio 20, Glucose Level 91, Calcium Level 7.7L, Magnesium Level 1.9, Total Bilirubin 0.7, Aspartate Amino Transf (AST/SGOT) 16, Alanine Aminotransferase (ALT/SGPT) 13, Alkaline Phosphatase 65, Total Protein 5.2L, Albumin 2.9L, Thyroid Stimulating Hormone (TSH) 1.94 02/21/18 21:01: Potassium Level 5.1H 02/22/18 05:25: White Blood Count 11.1H, Red Blood Count 3.89L, Hemoglobin 10.2L, Hematocrit 32L , Mean Corpuscular Volume 83, Mean Corpuscular Hemoglobin 26, Mean Corpuscular Hemoglobin Concent 32, Red Cell Distribution Width 18.7H, Platelet Count 105L, Mean Platelet Volume , Neutrophils (%) (Auto) 68, Lymphocytes (%) (Auto) 9L, Monocytes (%) (Auto) 22H, Eosinophils (%) (Auto) 1, Basophils (%) (Auto) 0, Neutrophils # (Auto) 7.6, Lymphocytes # (Auto) 1.0, Monocytes # (Auto) 2.5H, Eosinophils # (Auto) 0.1, Basophils # (Auto) 0.0, Sodium Level 139, Potassium Level 5.1H, Chloride Level 113H, Carbon Dioxide Level 15L, Anion Gap 11, Blood Urea Nitrogen 18, Creatinine 0.80, Estimat Glomerular Filtration Rate > 60, BUN/ Creatinine Ratio 23, Glucose Level 105, Calcium Level 8.3L, Total Bilirubin 0.8 , Aspartate Amino Transf (AST/SGOT) 18, Alanine Aminotransferase (ALT/SGPT) 16, Alkaline Phosphatase 55, Total Protein 5.8L, Albumin 3.0L 02/23/18 09:18: White Blood Count 9.0, Red Blood Count 3.56L, Hemoglobin 9.2L, Hematocrit 30L, Mean Corpuscular Volume 83, Mean Corpuscular Hemoglobin 26, Mean Corpuscular Hemoglobin Concent 31L, Red Cell Distribution Width 18.7H, Platelet Count 102L, Mean Platelet Volume , Sodium Level 137, Potassium Level 4.8, Chloride Level 106 , Carbon Dioxide Level 19L, Anion Gap 12, Blood Urea Nitrogen 22H, Creatinine 0.92, Estimat Glomerular Filtration Rate 58, BUN/Creatinine Ratio 24, Glucose Level 166H, Calcium Level 8.4L, B-Type Natriuretic Peptide 4240.6H, Triglycerides Level 79, Cholesterol Level 97, LDL Cholesterol Direct 57, VLDL Cholesterol 16, HDL Cholesterol 27L 02/24/18 05:50: White Blood Count 9.6, Red Blood Count 3.44L, Hemoglobin 9.1L, Hematocrit 28L, Mean Corpuscular Volume 82, Mean Corpuscular Hemoglobin 27, Mean Corpuscular Hemoglobin Concent 32, Red Cell Distribution Width 18.5H, Platelet Count 98L, Mean Platelet Volume , Sodium Level 137, Potassium Level 3.8, Chloride Level 104 , Carbon Dioxide Level 21, Anion Gap 12, Blood Urea Nitrogen 24H, Creatinine 0.89, Estimat Glomerular Filtration Rate 60, BUN/Creatinine Ratio 27, Glucose Level 96, Calcium Level 8.4L, Magnesium Level 1.9 02/24/18 22:40: Sodium Level 137, Potassium Level 3.9, Chloride Level 101, Carbon Dioxide Level 24, Anion Gap 12, Blood Urea Nitrogen 35H, Creatinine 1.12, Estimat Glomerular Filtration Rate 46, BUN/Creatinine Ratio 31, Glucose Level 114H, Calcium Level 8.6, Troponin I < 0.30 02/25/18 05:28: White Blood Count 10.5, Red Blood Count 3.47L, Hemoglobin 9.1L, Hematocrit 29L, Mean Corpuscular Volume 82, Mean Corpuscular Hemoglobin 26, Mean Corpuscular Hemoglobin Concent 32, Red Cell Distribution Width 18.6H, Platelet Count 110L, Mean Platelet Volume , Sodium Level 138, Potassium Level 3.5L, Chloride Level 100, Carbon Dioxide Level 26, Anion Gap 12, Blood Urea Nitrogen 32H, Creatinine 1.03, Estimat Glomerular Filtration Rate 51, BUN/Creatinine Ratio 31, Glucose Level 103, Calcium Level 8.2L, B-Type Natriuretic Peptide 2174.3H 02/26/18 05:28: White Blood Count 14.4H, Red Blood Count 3.48L, Hemoglobin 9.3L, Hematocrit 29L , Mean Corpuscular Volume 83, Mean Corpuscular Hemoglobin 27, Mean Corpuscular Hemoglobin Concent 32, Red Cell Distribution Width 18.4H, Platelet Count 116L, Mean Platelet Volume , Sodium Level 137, Potassium Level 3.4L, Chloride Level 101, Carbon Dioxide Level 27, Anion Gap 9, Blood Urea Nitrogen 29H, Creatinine 0.82, Estimat Glomerular Filtration Rate > 60, BUN/Creatinine Ratio 35, Glucose Level 108H, Calcium Level 8.4L, B-Type Natriuretic Peptide 2699.1H, Neutrophils (%) (Auto) 79H, Lymphocytes (%) (Auto) 5L, Monocytes (%) (Auto) 15H, Eosinophils (%) (Auto) 0, Basophils (%) (Auto) 0, Neutrophils # (Auto) 11.4H, Lymphocytes # (Auto) 0.8L, Monocytes # (Auto) 2.2H, Eosinophils # (Auto) 0.0, Basophils # (Auto) 0.0, Neutrophils % (Manual) 82, Lymphocytes % (Manual) 2, Monocytes % (Manual) 16, Eosinophils % (Manual) 0, Basophils % (Manual) 0, Band Neutrophils 0, Polychromasia SLIGHT, Hypochromasia MARKED, Poikilocytosis SLIGHT , Anisocytosis MODERATE, Macrocytosis MODERATE, Elliptocytes MARKED, Total Bilirubin 0.9, Aspartate Amino Transf (AST/SGOT) 63H, Alanine Aminotransferase ( ALT/SGPT) 97H, Alkaline Phosphatase 61, Total Protein 5.4L, Albumin 2.8L 02/26/18 07:16: Lactic Acid Level 0.96 02/26/18 09:15: White Blood Count 14.9H, Red Blood Count 3.47L, Hemoglobin 9.2L, Hematocrit 29L , Mean Corpuscular Volume 84, Mean Corpuscular Hemoglobin 27, Mean Corpuscular Hemoglobin Concent 32, Red Cell Distribution Width 18.4H, Platelet Count 118L, Mean Platelet Volume 13.2H, Neutrophils (%) (Auto) 82H, Lymphocytes (%) (Auto) 5L, Monocytes (%) (Auto) 13H, Eosinophils (%) (Auto) 0, Basophils (%) (Auto) 0, Neutrophils # (Auto) 12.3H, Lymphocytes # (Auto) 0.7L, Monocytes # (Auto) 1.9H, Eosinophils # (Auto) 0.0, Basophils # (Auto) 0.0 02/26/18 10:45: Urine Color YELLOW, Urine Clarity CLEAR, Urine pH 8, Urine Specific Newcomb 1.010L, Urine Protein NEGATIVE, Urine Glucose (UA) NEGATIVE, Urine Ketones NEGATIVE, Urine Nitrite NEGATIVE, Urine Bilirubin NEGATIVE, Urine Urobilinogen NORMAL, Urine Leukocyte Esterase 2+H, Urine RBC (Auto) 5+H, Urine RBC 10-25H, Urine WBC 10-25H, Urine Squamous Epithelial Cells 0-2, Urine Crystals PRESENTH, Urine Amorphous Sediment FEW LORENZO PHOSPHATEH, Urine Bacteria LARGEH, Urine Casts NONE, Urine Mucus NEGATIVE, Urine Culture Indicated YES 02/27/18 06:03: White Blood Count 14.8H, Red Blood Count 3.68L, Hemoglobin 9.4L, Hematocrit 31L , Mean Corpuscular Volume 83, Mean Corpuscular Hemoglobin 26, Mean Corpuscular Hemoglobin Concent 31L, Red Cell Distribution Width 18.5H, Platelet Count 137, Mean Platelet Volume , Neutrophils (%) (Auto) 74, Lymphocytes (%) (Auto) 6L, Monocytes (%) (Auto) 20H, Eosinophils (%) (Auto) 1, Basophils (%) (Auto) 0, Neutrophils # (Auto) 10.9H, Lymphocytes # (Auto) 0.9L, Monocytes # (Auto) 2.9H, Eosinophils # (Auto) 0.1, Basophils # (Auto) 0.0, Sodium Level 136, Potassium Level 3.0L, Chloride Level 101, Carbon Dioxide Level 26, Anion Gap 9, Blood Urea Nitrogen 30H, Creatinine 0.76, Estimat Glomerular Filtration Rate > 60, BUN /Creatinine Ratio 39, Glucose Level 99, Calcium Level 8.2L, Magnesium Level 2.1 , Total Bilirubin 0.9, Aspartate Amino Transf (AST/SGOT) 39H, Alanine Aminotransferase (ALT/SGPT) 72H, Alkaline Phosphatase 57, B-Type Natriuretic Peptide 1724.7H, Total Protein 5.5L, Albumin 2.7L 02/28/18 06:02: White Blood Count 13.8H, Red Blood Count 3.53L, Hemoglobin 9.3L, Hematocrit 29L , Mean Corpuscular Volume 83, Mean Corpuscular Hemoglobin 26, Mean Corpuscular Hemoglobin Concent 32, Red Cell Distribution Width 18.3H, Platelet Count 128L, Mean Platelet Volume , Neutrophils (%) (Auto) 73, Lymphocytes (%) (Auto) 7L, Monocytes (%) (Auto) 18H, Eosinophils (%) (Auto) 1, Basophils (%) (Auto) 0, Neutrophils # (Auto) 10.1H, Lymphocytes # (Auto) 1.0, Monocytes # (Auto) 2.5H, Eosinophils # (Auto) 0.2, Basophils # (Auto) 0.0, Sodium Level 139, Potassium Level 3.9, Chloride Level 104, Carbon Dioxide Level 25, Anion Gap 10, Blood Urea Nitrogen 33H, Creatinine 0.81, Estimat Glomerular Filtration Rate > 60, BUN /Creatinine Ratio 41, Glucose Level 100, Calcium Level 8.4L, Magnesium Level 2.1 , Total Bilirubin 0.8, Aspartate Amino Transf (AST/SGOT) 25, Alanine Aminotransferase (ALT/SGPT) 52, Alkaline Phosphatase 59, Total Protein 5.6L, Albumin 2.7L, Phosphorus Level 2.0L, Vancomycin Level Trough 7.5L 03/01/18 05:12: White Blood Count 11.4H, Red Blood Count 3.63L, Hemoglobin 9.3L, Hematocrit 30L , Mean Corpuscular Volume 84, Mean Corpuscular Hemoglobin 26, Mean Corpuscular Hemoglobin Concent 31L, Red Cell Distribution Width 18.6H, Platelet Count 150, Mean Platelet Volume , Neutrophils (%) (Auto) 66, Lymphocytes (%) (Auto) 10L, Monocytes (%) (Auto) 20H, Eosinophils (%) (Auto) 4, Basophils (%) (Auto) 0, Neutrophils # (Auto) 7.5, Lymphocytes # (Auto) 1.1, Monocytes # (Auto) 2.3H, Eosinophils # (Auto) 0.4H, Basophils # (Auto) 0.0, Sodium Level 139, Potassium Level 4.4, Chloride Level 105, Carbon Dioxide Level 23, Anion Gap 11, Blood Urea Nitrogen 33H, Creatinine 0.79, Estimat Glomerular Filtration Rate > 60, BUN /Creatinine Ratio 42, Glucose Level 99, Calcium Level 8.7, Magnesium Level 2.3, Total Bilirubin 0.8, Aspartate Amino Transf (AST/SGOT) 27, Alanine Aminotransferase (ALT/SGPT) 42, Alkaline Phosphatase 59, B-Type Natriuretic Peptide 2213.3H, Total Protein 6.0L, Albumin 2.9L, Phosphorus Level 2.5 03/02/18 05:35: White Blood Count 9.7, Red Blood Count 3.35L, Hemoglobin 8.8L, Hematocrit 28L, Mean Corpuscular Volume 83, Mean Corpuscular Hemoglobin 26, Mean Corpuscular Hemoglobin Concent 32, Red Cell Distribution Width 18.2H, Platelet Count 145, Mean Platelet Volume 12.7H, Neutrophils (%) (Auto) 65, Lymphocytes (%) (Auto) 10L, Monocytes (%) (Auto) 21H, Eosinophils (%) (Auto) 4, Basophils (%) (Auto) 0 , Neutrophils # (Auto) 6.2, Lymphocytes # (Auto) 1.0, Monocytes # (Auto) 2.1H, Eosinophils # (Auto) 0.4H, Basophils # (Auto) 0.0, Sodium Level 140, Potassium Level 3.9, Chloride Level 106, Carbon Dioxide Level 24, Anion Gap 10, Blood Urea Nitrogen 36H, Creatinine 0.78, Estimat Glomerular Filtration Rate > 60, BUN /Creatinine Ratio 46, Glucose Level 102, Calcium Level 8.5, Phosphorus Level 2.6 , Magnesium Level 2.1, Total Bilirubin 0.8, Aspartate Amino Transf (AST/SGOT) 23 , Alanine Aminotransferase (ALT/SGPT) 38, Alkaline Phosphatase 60, Total Protein 5.6L, Albumin 2.8L, Vancomycin Level Trough 11.1 03/03/18 06:27: White Blood Count 7.7, Red Blood Count 3.52L, Hemoglobin 8.9L, Hematocrit 29L, Mean Corpuscular Volume 83, Mean Corpuscular Hemoglobin 25, Mean Corpuscular Hemoglobin Concent 31L, Red Cell Distribution Width 18.5H, Platelet Count 149, Mean Platelet Volume 12.6H, Neutrophils (%) (Auto) 67, Lymphocytes (%) (Auto) 10L, Monocytes (%) (Auto) 21H, Eosinophils (%) (Auto) 1, Basophils (%) (Auto) 0 , Neutrophils # (Auto) 5.1, Lymphocytes # (Auto) 0.8L, Monocytes # (Auto) 1.6H, Eosinophils # (Auto) 0.1, Basophils # (Auto) 0.0, Sodium Level 143, Potassium Level 3.9, Chloride Level 107, Carbon Dioxide Level 26, Anion Gap 10, Blood Urea Nitrogen 33H, Creatinine 0.80, Estimat Glomerular Filtration Rate > 60, BUN /Creatinine Ratio 41, Glucose Level 92, Calcium Level 8.8, Phosphorus Level 2.9 , Magnesium Level 2.2 03/04/18 05:01: White Blood Count 5.4, Red Blood Count 3.31L, Hemoglobin 8.6L, Hematocrit 28L, Mean Corpuscular Volume 84, Mean Corpuscular Hemoglobin 26, Mean Corpuscular Hemoglobin Concent 31L, Red Cell Distribution Width 18.1H, Platelet Count 151, Mean Platelet Volume 12.8H, Neutrophils (%) (Auto) 64, Lymphocytes (%) (Auto) 13 , Monocytes (%) (Auto) 21H, Eosinophils (%) (Auto) 2, Basophils (%) (Auto) 1, Neutrophils # (Auto) 3.4, Lymphocytes # (Auto) 0.7L, Monocytes # (Auto) 1.1H, Eosinophils # (Auto) 0.1, Basophils # (Auto) 0.0, Sodium Level 139, Potassium Level 3.9, Chloride Level 103, Carbon Dioxide Level 24, Anion Gap 12, Blood Urea Nitrogen 36H, Creatinine 0.81, Estimat Glomerular Filtration Rate > 60, BUN /Creatinine Ratio 44, Glucose Level 95, Calcium Level 8.5, Phosphorus Level 3.1 , Magnesium Level 2.2 Microbiology 02/26/18 Blood Culture - Final, Complete No growth 02/26/18 Urine Culture - Final, Complete NO GROWTH Laboratory Tests 02/19/18 19:45 02/20/18 03:10 02/21/18 05:00 02/21/18 05:20 02/21/18 21:01 02/22/18 05:25 02/23/18 09:18 02/24/18 05:50 02/24/18 22:40 02/25/18 05:28 02/26/18 05:28 02/26/18 09:15 02/27/18 06:03 02/28/18 06:02 03/01/18 05:12 03/02/18 05:35 03/03/18 06:27 03/04/18 05:01 Pending Labs Microbiology Date/Time Source Procedure Growth Status 02/26/18 07:16 Peripheral Rt Hand Blood Culture - Final No growth Complete 02/26/18 07:00 Peripheral Lt Hand Blood Culture - Final No growth Complete 02/26/18 06:55 Peripheral Left Wrist Blood Culture - Final No growth Complete 02/19/18 21:30 Peripheral Rt Ac Blood Culture - Final No growth Complete 02/19/18 21:15 Peripheral Not Otherwise Specified Blood Culture - Preliminary Staph, Coag Neg (DIRECTOR REGULATORY COMPLIANCE) See Comments Resulted 02/26/18 10:45 Urine Clean Catch Urine Culture - Final NO GROWTH Complete Laboratory Tests 02/19/18 19:45: White Blood Count 8.2, Red Blood Count 4.00, Hemoglobin 10.6, Hematocrit 33, Mean Corpuscular Volume 82, Mean Corpuscular Hemoglobin 27, Mean Corpuscular Hemoglobin Concent 32, Red Cell Distribution Width 18.5, Platelet Count 116, Mean Platelet Volume , Neutrophils (%) (Auto) 60, Lymphocytes (%) (Auto) 19, Monocytes (%) (Auto) 21, Eosinophils (%) (Auto) 0, Basophils (%) (Auto) 0, Neutrophils # (Auto) 4.9, Lymphocytes # (Auto) 1.6, Monocytes # (Auto) 1.8, Eosinophils # (Auto) 0.0, Basophils # (Auto) 0.0, Neutrophils % (Manual) 60, Lymphocytes % (Manual) 25, Monocytes % (Manual) 14, Eosinophils % (Manual) 0, Basophils % (Manual) 1, Band Neutrophils 0, Anisocytosis SLIGHT, Spherocytes SLIGHT, Elliptocytes MODERATE, Prothrombin Time 56.5, INR Comment 6.3, Activated Partial Thromboplast Time 45, D-Dimer 0.84, Sodium Level 134, Potassium Level 4.4, Chloride Level 106, Carbon Dioxide Level 11, Anion Gap 17, Blood Urea Nitrogen 22, Creatinine 1.14, Estimat Glomerular Filtration Rate 45, BUN/Creatinine Ratio 19, Glucose Level 143, Calcium Level 8.7, Total Bilirubin 1.2, Aspartate Amino Transf (AST/SGOT) 21, Alanine Aminotransferase (ALT/SGPT) 16, Alkaline Phosphatase 66, Troponin I < 0.30, B-Type Natriuretic Peptide 2960.1, Total Protein 6.5, Albumin 3.5 02/19/18 19:59: Glucometer 142 02/19/18 20:50: Urine Color YELLOW, Urine Clarity CLEAR, Urine pH 5, Urine Specific Newcomb 1.030, Urine Protein 3+, Urine Glucose (UA) NEGATIVE, Urine Ketones 1+, Urine Nitrite NEGATIVE, Urine Bilirubin 1+, Urine Urobilinogen 4, Urine Leukocyte Esterase 1+, Urine RBC (Auto) 1+, Urine RBC 2-5, Urine WBC 2-5, Urine Squamous Epithelial Cells 0-2, Urine Crystals NONE, Urine Bacteria TRACE, Urine Casts PRESENT, Urine Hyaline Casts 5-10, Urine Mucus LARGE, Urine Culture Indicated NO 02/20/18 03:10: Sodium Level 134, Potassium Level 3.2, Chloride Level 102, Carbon Dioxide Level 17, Anion Gap 15, Blood Urea Nitrogen 20, Creatinine 1.03, Estimat Glomerular Filtration Rate 51, BUN/Creatinine Ratio 19, Glucose Level 142, Calcium Level 8.4, B-Type Natriuretic Peptide 3029.9 02/20/18 03:16: Prothrombin Time 39.9, INR Comment 4.1, Magnesium Level 1.7 02/20/18 10:20: Lactic Acid Level 2.10 02/20/18 12:25: Lactic Acid Level 5.57 02/20/18 17:22: Lactic Acid Level 2.27 02/20/18 19:17: Lactic Acid Level 1.65 02/21/18 05:00: Lactic Acid Level 1.51, White Blood Count 9.1, Red Blood Count 3.99, Hemoglobin 10.2, Hematocrit 33, Mean Corpuscular Volume 82, Mean Corpuscular Hemoglobin 26 , Mean Corpuscular Hemoglobin Concent 31, Red Cell Distribution Width 18.6, Platelet Count 101, Mean Platelet Volume 02/21/18 05:20: Prothrombin Time 50.1, INR Comment 5.5, Sodium Level 140, Potassium Level 3.0, Chloride Level 108, Carbon Dioxide Level 19, Anion Gap 13, Blood Urea Nitrogen 20, Creatinine 1.01, Estimat Glomerular Filtration Rate 52, BUN/Creatinine Ratio 20, Glucose Level 91, Calcium Level 7.7, Magnesium Level 1.9, Total Bilirubin 0.7, Aspartate Amino Transf (AST/SGOT) 16, Alanine Aminotransferase ( ALT/SGPT) 13, Alkaline Phosphatase 65, Total Protein 5.2, Albumin 2.9, Thyroid Stimulating Hormone (TSH) 1.94 02/21/18 21:01: Potassium Level 5.1 02/22/18 05:25: White Blood Count 11.1, Red Blood Count 3.89, Hemoglobin 10.2, Hematocrit 32, Mean Corpuscular Volume 83, Mean Corpuscular Hemoglobin 26, Mean Corpuscular Hemoglobin Concent 32, Red Cell Distribution Width 18.7, Platelet Count 105, Mean Platelet Volume , Neutrophils (%) (Auto) 68, Lymphocytes (%) (Auto) 9, Monocytes (%) (Auto) 22, Eosinophils (%) (Auto) 1, Basophils (%) (Auto) 0, Neutrophils # (Auto) 7.6, Lymphocytes # (Auto) 1.0, Monocytes # (Auto) 2.5, Eosinophils # (Auto) 0.1, Basophils # (Auto) 0.0, Sodium Level 139, Potassium Level 5.1, Chloride Level 113, Carbon Dioxide Level 15, Anion Gap 11, Blood Urea Nitrogen 18, Creatinine 0.80, Estimat Glomerular Filtration Rate > 60, BUN/ Creatinine Ratio 23, Glucose Level 105, Calcium Level 8.3, Total Bilirubin 0.8, Aspartate Amino Transf (AST/SGOT) 18, Alanine Aminotransferase (ALT/SGPT) 16, Alkaline Phosphatase 55, Total Protein 5.8, Albumin 3.0 02/23/18 09:18: White Blood Count 9.0, Red Blood Count 3.56, Hemoglobin 9.2, Hematocrit 30, Mean Corpuscular Volume 83, Mean Corpuscular Hemoglobin 26, Mean Corpuscular Hemoglobin Concent 31, Red Cell Distribution Width 18.7, Platelet Count 102, Mean Platelet Volume , Sodium Level 137, Potassium Level 4.8, Chloride Level 106 , Carbon Dioxide Level 19, Anion Gap 12, Blood Urea Nitrogen 22, Creatinine 0.92 , Estimat Glomerular Filtration Rate 58, BUN/Creatinine Ratio 24, Glucose Level 166, Calcium Level 8.4, B-Type Natriuretic Peptide 4240.6, Triglycerides Level 79, Cholesterol Level 97, LDL Cholesterol Direct 57, VLDL Cholesterol 16, HDL Cholesterol 27 02/24/18 05:50: White Blood Count 9.6, Red Blood Count 3.44, Hemoglobin 9.1, Hematocrit 28, Mean Corpuscular Volume 82, Mean Corpuscular Hemoglobin 27, Mean Corpuscular Hemoglobin Concent 32, Red Cell Distribution Width 18.5, Platelet Count 98, Mean Platelet Volume , Sodium Level 137, Potassium Level 3.8, Chloride Level 104 , Carbon Dioxide Level 21, Anion Gap 12, Blood Urea Nitrogen 24, Creatinine 0.89 , Estimat Glomerular Filtration Rate 60, BUN/Creatinine Ratio 27, Glucose Level 96, Calcium Level 8.4, Magnesium Level 1.9 02/24/18 22:40: Sodium Level 137, Potassium Level 3.9, Chloride Level 101, Carbon Dioxide Level 24, Anion Gap 12, Blood Urea Nitrogen 35, Creatinine 1.12, Estimat Glomerular Filtration Rate 46, BUN/Creatinine Ratio 31, Glucose Level 114, Calcium Level 8.6, Troponin I < 0.30 02/25/18 05:28: White Blood Count 10.5, Red Blood Count 3.47, Hemoglobin 9.1, Hematocrit 29, Mean Corpuscular Volume 82, Mean Corpuscular Hemoglobin 26, Mean Corpuscular Hemoglobin Concent 32, Red Cell Distribution Width 18.6, Platelet Count 110, Mean Platelet Volume , Sodium Level 138, Potassium Level 3.5, Chloride Level 100 , Carbon Dioxide Level 26, Anion Gap 12, Blood Urea Nitrogen 32, Creatinine 1.03 , Estimat Glomerular Filtration Rate 51, BUN/Creatinine Ratio 31, Glucose Level 103, Calcium Level 8.2, B-Type Natriuretic Peptide 2174.3 02/26/18 05:28: White Blood Count 14.4, Red Blood Count 3.48, Hemoglobin 9.3, Hematocrit 29, Mean Corpuscular Volume 83, Mean Corpuscular Hemoglobin 27, Mean Corpuscular Hemoglobin Concent 32, Red Cell Distribution Width 18.4, Platelet Count 116, Mean Platelet Volume , Sodium Level 137, Potassium Level 3.4, Chloride Level 101 , Carbon Dioxide Level 27, Anion Gap 9, Blood Urea Nitrogen 29, Creatinine 0.82 , Estimat Glomerular Filtration Rate > 60, BUN/Creatinine Ratio 35, Glucose Level 108, Calcium Level 8.4, B-Type Natriuretic Peptide 2699.1, Neutrophils (% ) (Auto) 79, Lymphocytes (%) (Auto) 5, Monocytes (%) (Auto) 15, Eosinophils (%) (Auto) 0, Basophils (%) (Auto) 0, Neutrophils # (Auto) 11.4, Lymphocytes # (Auto ) 0.8, Monocytes # (Auto) 2.2, Eosinophils # (Auto) 0.0, Basophils # (Auto) 0.0 , Neutrophils % (Manual) 82, Lymphocytes % (Manual) 2, Monocytes % (Manual) 16, Eosinophils % (Manual) 0, Basophils % (Manual) 0, Band Neutrophils 0, Polychromasia SLIGHT, Hypochromasia MARKED, Poikilocytosis SLIGHT, Anisocytosis MODERATE, Macrocytosis MODERATE, Elliptocytes MARKED, Total Bilirubin 0.9, Aspartate Amino Transf (AST/SGOT) 63, Alanine Aminotransferase (ALT/SGPT) 97, Alkaline Phosphatase 61, Total Protein 5.4, Albumin 2.8 02/26/18 07:16: Lactic Acid Level 0.96 02/26/18 09:15: White Blood Count 14.9, Red Blood Count 3.47, Hemoglobin 9.2, Hematocrit 29, Mean Corpuscular Volume 84, Mean Corpuscular Hemoglobin 27, Mean Corpuscular Hemoglobin Concent 32, Red Cell Distribution Width 18.4, Platelet Count 118, Mean Platelet Volume 13.2, Neutrophils (%) (Auto) 82, Lymphocytes (%) (Auto) 5, Monocytes (%) (Auto) 13, Eosinophils (%) (Auto) 0, Basophils (%) (Auto) 0, Neutrophils # (Auto) 12.3, Lymphocytes # (Auto) 0.7, Monocytes # (Auto) 1.9, Eosinophils # (Auto) 0.0, Basophils # (Auto) 0.0 02/26/18 10:45: Urine Color YELLOW, Urine Clarity CLEAR, Urine pH 8, Urine Specific Newcomb 1.010, Urine Protein NEGATIVE, Urine Glucose (UA) NEGATIVE, Urine Ketones NEGATIVE, Urine Nitrite NEGATIVE, Urine Bilirubin NEGATIVE, Urine Urobilinogen NORMAL, Urine Leukocyte Esterase 2+, Urine RBC (Auto) 5+, Urine RBC 10-25, Urine WBC 10-25, Urine Squamous Epithelial Cells 0-2, Urine Crystals PRESENT, Urine Amorphous Sediment FEW LORENZO PHOSPHATE, Urine Bacteria LARGE, Urine Casts NONE, Urine Mucus NEGATIVE, Urine Culture Indicated YES 02/27/18 06:03: White Blood Count 14.8, Red Blood Count 3.68, Hemoglobin 9.4, Hematocrit 31, Mean Corpuscular Volume 83, Mean Corpuscular Hemoglobin 26, Mean Corpuscular Hemoglobin Concent 31, Red Cell Distribution Width 18.5, Platelet Count 137, Mean Platelet Volume , Neutrophils (%) (Auto) 74, Lymphocytes (%) (Auto) 6, Monocytes (%) (Auto) 20, Eosinophils (%) (Auto) 1, Basophils (%) (Auto) 0, Neutrophils # (Auto) 10.9, Lymphocytes # (Auto) 0.9, Monocytes # (Auto) 2.9, Eosinophils # (Auto) 0.1, Basophils # (Auto) 0.0, Sodium Level 136, Potassium Level 3.0, Chloride Level 101, Carbon Dioxide Level 26, Anion Gap 9, Blood Urea Nitrogen 30, Creatinine 0.76, Estimat Glomerular Filtration Rate > 60, BUN/ Creatinine Ratio 39, Glucose Level 99, Calcium Level 8.2, Magnesium Level 2.1, Total Bilirubin 0.9, Aspartate Amino Transf (AST/SGOT) 39, Alanine Aminotransferase (ALT/SGPT) 72, Alkaline Phosphatase 57, B-Type Natriuretic Peptide 1724.7, Total Protein 5.5, Albumin 2.7 02/28/18 06:02: White Blood Count 13.8, Red Blood Count 3.53, Hemoglobin 9.3, Hematocrit 29, Mean Corpuscular Volume 83, Mean Corpuscular Hemoglobin 26, Mean Corpuscular Hemoglobin Concent 32, Red Cell Distribution Width 18.3, Platelet Count 128, Mean Platelet Volume , Neutrophils (%) (Auto) 73, Lymphocytes (%) (Auto) 7, Monocytes (%) (Auto) 18, Eosinophils (%) (Auto) 1, Basophils (%) (Auto) 0, Neutrophils # (Auto) 10.1, Lymphocytes # (Auto) 1.0, Monocytes # (Auto) 2.5, Eosinophils # (Auto) 0.2, Basophils # (Auto) 0.0, Sodium Level 139, Potassium Level 3.9, Chloride Level 104, Carbon Dioxide Level 25, Anion Gap 10, Blood Urea Nitrogen 33, Creatinine 0.81, Estimat Glomerular Filtration Rate > 60, BUN/ Creatinine Ratio 41, Glucose Level 100, Calcium Level 8.4, Magnesium Level 2.1, Total Bilirubin 0.8, Aspartate Amino Transf (AST/SGOT) 25, Alanine Aminotransferase (ALT/SGPT) 52, Alkaline Phosphatase 59, Total Protein 5.6, Albumin 2.7, Phosphorus Level 2.0, Vancomycin Level Trough 7.5 03/01/18 05:12: White Blood Count 11.4, Red Blood Count 3.63, Hemoglobin 9.3, Hematocrit 30, Mean Corpuscular Volume 84, Mean Corpuscular Hemoglobin 26, Mean Corpuscular Hemoglobin Concent 31, Red Cell Distribution Width 18.6, Platelet Count 150, Mean Platelet Volume , Neutrophils (%) (Auto) 66, Lymphocytes (%) (Auto) 10, Monocytes (%) (Auto) 20, Eosinophils (%) (Auto) 4, Basophils (%) (Auto) 0, Neutrophils # (Auto) 7.5, Lymphocytes # (Auto) 1.1, Monocytes # (Auto) 2.3, Eosinophils # (Auto) 0.4, Basophils # (Auto) 0.0, Sodium Level 139, Potassium Level 4.4, Chloride Level 105, Carbon Dioxide Level 23, Anion Gap 11, Blood Urea Nitrogen 33, Creatinine 0.79, Estimat Glomerular Filtration Rate > 60, BUN/ Creatinine Ratio 42, Glucose Level 99, Calcium Level 8.7, Magnesium Level 2.3, Total Bilirubin 0.8, Aspartate Amino Transf (AST/SGOT) 27, Alanine Aminotransferase (ALT/SGPT) 42, Alkaline Phosphatase 59, B-Type Natriuretic Peptide 2213.3, Total Protein 6.0, Albumin 2.9, Phosphorus Level 2.5 03/02/18 05:35: White Blood Count 9.7, Red Blood Count 3.35, Hemoglobin 8.8, Hematocrit 28, Mean Corpuscular Volume 83, Mean Corpuscular Hemoglobin 26, Mean Corpuscular Hemoglobin Concent 32, Red Cell Distribution Width 18.2, Platelet Count 145, Mean Platelet Volume 12.7, Neutrophils (%) (Auto) 65, Lymphocytes (%) (Auto) 10 , Monocytes (%) (Auto) 21, Eosinophils (%) (Auto) 4, Basophils (%) (Auto) 0, Neutrophils # (Auto) 6.2, Lymphocytes # (Auto) 1.0, Monocytes # (Auto) 2.1, Eosinophils # (Auto) 0.4, Basophils # (Auto) 0.0, Sodium Level 140, Potassium Level 3.9, Chloride Level 106, Carbon Dioxide Level 24, Anion Gap 10, Blood Urea Nitrogen 36, Creatinine 0.78, Estimat Glomerular Filtration Rate > 60, BUN/ Creatinine Ratio 46, Glucose Level 102, Calcium Level 8.5, Phosphorus Level 2.6 , Magnesium Level 2.1, Total Bilirubin 0.8, Aspartate Amino Transf (AST/SGOT) 23 , Alanine Aminotransferase (ALT/SGPT) 38, Alkaline Phosphatase 60, Total Protein 5.6, Albumin 2.8, Vancomycin Level Trough 11.1 03/03/18 06:27: White Blood Count 7.7, Red Blood Count 3.52, Hemoglobin 8.9, Hematocrit 29, Mean Corpuscular Volume 83, Mean Corpuscular Hemoglobin 25, Mean Corpuscular Hemoglobin Concent 31, Red Cell Distribution Width 18.5, Platelet Count 149, Mean Platelet Volume 12.6, Neutrophils (%) (Auto) 67, Lymphocytes (%) (Auto) 10 , Monocytes (%) (Auto) 21, Eosinophils (%) (Auto) 1, Basophils (%) (Auto) 0, Neutrophils # (Auto) 5.1, Lymphocytes # (Auto) 0.8, Monocytes # (Auto) 1.6, Eosinophils # (Auto) 0.1, Basophils # (Auto) 0.0, Sodium Level 143, Potassium Level 3.9, Chloride Level 107, Carbon Dioxide Level 26, Anion Gap 10, Blood Urea Nitrogen 33, Creatinine 0.80, Estimat Glomerular Filtration Rate > 60, BUN/ Creatinine Ratio 41, Glucose Level 92, Calcium Level 8.8, Phosphorus Level 2.9, Magnesium Level 2.2 03/04/18 05:01: White Blood Count 5.4, Red Blood Count 3.31, Hemoglobin 8.6, Hematocrit 28, Mean Corpuscular Volume 84, Mean Corpuscular Hemoglobin 26, Mean Corpuscular Hemoglobin Concent 31, Red Cell Distribution Width 18.1, Platelet Count 151, Mean Platelet Volume 12.8, Neutrophils (%) (Auto) 64, Lymphocytes (%) (Auto) 13 , Monocytes (%) (Auto) 21, Eosinophils (%) (Auto) 2, Basophils (%) (Auto) 1, Neutrophils # (Auto) 3.4, Lymphocytes # (Auto) 0.7, Monocytes # (Auto) 1.1, Eosinophils # (Auto) 0.1, Basophils # (Auto) 0.0, Sodium Level 139, Potassium Level 3.9, Chloride Level 103, Carbon Dioxide Level 24, Anion Gap 12, Blood Urea Nitrogen 36, Creatinine 0.81, Estimat Glomerular Filtration Rate > 60, BUN/ Creatinine Ratio 44, Glucose Level 95, Calcium Level 8.5, Phosphorus Level 3.1, Magnesium Level 2.2 Discussion & Recommendations Patient improved with his speech. Last checks x-ray showed worse. Patient to have today at 930 a.m. a chest x-ray and CBC and modified barium swallow and speech evaluation for aspiration.. Spoke this over with pulmonology Discharge Home Medications: Active Scripts Active Cefdinir 300 Mg Capsule 300 Mg PO BID Aspirin 81 Mg Tab.chew 81 Mg PO DAILY 30 Days Entresto 24 mg-26 mg Tablet (Sacubitril/Valsartan) 1 Each Tablet 1 Tab PO BID Lasix (Furosemide) 40 Mg Tablet 40 Mg PO DAILY Reported Cartia Xt (Diltiazem HCl) 240 Mg Cap.er.24h 240 Mg PO DAILY Clopidogrel (Clopidogrel Bisulfate) 75 Mg Tablet 75 Mg PO DAILY Atorvastatin Calcium 10 Mg Tablet 10 Mg PO DAILY Pantoprazole Sodium 20 Mg Tablet.dr 20 Mg PO DAILY Metoprolol Succinate 50 Mg Tab.er.24h 25 Mg PO DAILY TAKES 1/2 (50MG) TABLET Xarelto (Rivaroxaban) 15 Mg Tablet 15 Mg PO DAILY Instructions to patient/family Please see electronic discharge instructions given to patient. Clinical Quality Measures DVT/VTE Risk/Contraindication: Risk Factor Score Per Nursin RFS Level Per Nursing on Admit: 4+=Very High Contraindications-Pharm: Other *list below* Stroke: Date of last known well: Feb 19, 2018 ARGENIS JERRY DO Mar 05, 2018 08:33
== END 2018-03-04 14:40 | DRG 64 ==
LOC: EDUNIT# 19:36 → ER 19:37 → ICU 22:37 → 4TH 02-21 16:33
PROVIDERS: ADMIT Family Medicine; ATTEND Family Medicine
DX: I63.9 Cerebral infarction, unspecified (principal); R47.01 Aphasia; R47.1 Dysarthria and anarthria; I13.0 Hypertensive heart and chronic kidney disease with heart failure and stage 1 through stage 4 chronic kidney disease, or unspecified chronic kidney disease; I50.23 Acute on chronic systolic (congestive) heart failure; N18.3 Chronic kidney disease, stage 3 (moderate); J18.9 Pneumonia, unspecified organism; Z66 Do not resuscitate; R13.12 Dysphagia, oropharyngeal phase; J69.0 Pneumonitis due to inhalation of food and vomit; E87.2 Acidosis; I48.1 Persistent atrial fibrillation; R29.703 NIHSS score 3; I25.10 Atherosclerotic heart disease of native coronary artery without angina pectoris; I25.2 Old myocardial infarction; I25.5 Ischemic cardiomyopathy; I69.822 Dysarthria following other cerebrovascular disease; I69.892 Facial weakness following other cerebrovascular disease; D69.6 Thrombocytopenia, unspecified; D64.9 Anemia, unspecified; G47.33 Obstructive sleep apnea (adult) (pediatric); I07.1 Rheumatic tricuspid insufficiency; I65.23 Occlusion and stenosis of bilateral carotid arteries; R79.1 Abnormal coagulation profile; E87.6 Hypokalemia; E78.5 Hyperlipidemia, unspecified; M81.0 Age-related osteoporosis without current pathological fracture; Z95.5 Presence of coronary angioplasty implant and graft; Z79.01 Long term (current) use of anticoagulants; Z79.02 Long term (current) use of antithrombotics/antiplatelets
CPT/HCPCS: 36415; 70450; 70551; 71045; 71046; 80048; 80053; 80061; 80202; 81000; 82962; 83605; 83735; 83880; 84100; 84132; 84443; 84484; 85007; 85025; 85027; 85379; 85610; 85730; 87040; 87088; 93005; 93041; 93306; 93880; 94640; 94664; 94760; 96365; 96375

== ENCOUNTER → 2018-03-05 | Outpatient (CLI) | payer MEDICARE ==
[~2018-03-05] MED LIST changes: +ASPI-999 PO; +CEFD300C3 PO; +FURO-124 PO; +SACU1TAB PO
[2018-03-05 09:57] LABS: BASOPHILS % (AUTO) 0 % (0-10); EOSINOPHILS % (AUTO) 0 % (0-10); HEMATOCRIT 28 % (35-52); HEMOGLOBIN 8.4 G/DL (11.5-16.0); LYMPHOCYTES # (AUTO) 0.6 X 10^3 (1.0-4.0); LYMPHOCYTES % (AUTO) 10 % (12-44); MEAN CORPUSCULAR HEMOGLOBIN 25 PG (25-34); MEAN CORPUSCULAR HGB CONC 30 G/DL (32-36); MEAN CORPUSCULAR VOLUME 83 FL (80-99); MEAN PLATELET VOLUME 12.5 FL (7.4-10.4); MONOCYTES # (AUTO) 1.4 X 10^3 (0.0-1.0); MONOCYTES % (AUTO) 22 % (0-12); NEUTROPHILS # (AUTO) 4.3 X 10^3 (1.8-7.8); NEUTROPHILS % (AUTO) 68 % (42-75); PLATELET COUNT 146 10^3/uL (130-400); RED BLOOD COUNT 3.34 10^6/uL (4.35-5.85); RED CELL DISTRIBUTION WIDTH 18.2 % (10.0-14.5); WHITE BLOOD COUNT 6.3 10^3/uL (4.3-11.0)
--- NOTE | 2018-03-05 10:24 | Diagnostic Imaging Report ---
INDICATION: Oropharyngeal dysphasia. Followup pneumonia. COMPARISON: 03/04/2018 FINDINGS: Frontal and lateral radiographic views of the chest were obtained and again show mild bibasilar effusions, left greater than right. There has been overall improved aeration of the right lower lung when compared to one day prior. Pulmonary vascular congestion also appears slightly improved. Cardiac silhouette remains moderately enlarged. No pneumothorax is seen on either side. Bony structures show no gross acute abnormalities. IMPRESSION: 1. Persistent mild bibasilar effusions, left greater than right. 2. Improved aeration of the right lung base, which may be on the basis of improved atelectasis. 3. Probable improved pulmonary vascular congestion as well. Dictated by: Dictated on workstation # [id number]
--- NOTE | 2018-03-05 10:26 | Diagnostic Imaging Report ---
INDICATION: Dysphasia. The study was performed in conjunction with speech pathology. Videofluoroscopy was performed during the swallowing of barium at multiple consistencies. The patient ingested honey thick as well as nectar consistency. Patient also ingested pudding and cracker consistency. The oral phase is unremarkable. There is mild vallecular residue identified with multiple consistencies. There was an episode of laryngeal penetration during swallowing of nectar consistency with a straw. There was a second episode of penetration during swallowing of nectar consistency with a spoon to help wash down the cracker consistency. No aspiration was observed. IMPRESSION: Abnormal video swallow demonstrating laryngeal penetration during swallowing of nectar consistency, as described. No aspiration was observed. Dictated by: Dictated on workstation # [id number]
[2018-03-05 10:29] LABS: ANISOCYTOSIS MODERATE; BAND NEUTROPHILS 0 %; BASOPHILS % (MANUAL) 0 %; ELLIPT/OVALOCYTES MODERATE; EOSINOPHILS % (MANUAL) 0 %; HYPOCHROMASIA SLIGHT; LYMPHOCYTES % (MANUAL) 13 %; MONOCYTES % (MANUAL) 19 %; NEUTROPHILS % (MANUAL) 68 %; POLYCHROMASIA SLIGHT
== END ==
LOC: RAD 09:36
PROVIDERS: ATTEND Family Medicine
DX: J90 Pleural effusion, not elsewhere classified (principal); R13.12 Dysphagia, oropharyngeal phase
CPT/HCPCS: 36415; 71046; 74230; 85007; 85027